=== PATIENT | female | born 1935 | race Caucasian/White ===

== ENCOUNTER 2017-01-09 21:07 | Observation (INO) | payer MEDICARE, MEDICAID ==
[2017-01-09 21:08] VITALS: BMI 35.6
--- NOTE | 2017-01-09 23:04 | ED PDOC ---
HPI: General Adult Time Seen by Provider: 01/09/17 21:24 Chief Complaint (Nursing): GI Problem Chief Complaint (Provider): GI Problem History Per: Patient Onset/Duration Of Symptoms: Days (x1 day) Current Symptoms Are (Timing): Still Present Additional Complaint(s): 81 y/o female with a past medical history of COPD, diabetes mellitus, and hypertension presents to the emergency department with a complaint of a headache , nausea, vomiting, vertiginous dizziness, shortness of breath chest pressure, palpitations, and abdominal discomfort since early this morning, 01/09/2017. Patient states she begin feeling the symptoms after she came to the hospital for an EEG; once she arrived home she vomited 6 times. Reports taking Tylenol and extra dose of metoprolol (what she takes when she feels her heart facing) without the relief of symptoms. Admits experiencing similiar episodes in the past.Denies diarrhea. Of note, patient does see a neurologist for vertigo episodes. Past Medical History Reviewed: Historical Data, Nursing Documentation, Vital Signs Vital Signs: Last Vital Signs Temp 99 F 01/09/17 22:38 Pulse 60 01/09/17 21:09 Resp 18 01/09/17 21:09 BP 152/108 H 01/09/17 21:09 Pulse Ox 100 01/09/17 23:28 - Medical History PMH: Anxiety, Arthritis, Asthma, Atrial Fibrillation, Bipolar Disorder, CAD, CHF , COPD, CVA, Dementia, Depression, Diabetes, Diverticulitis, Fractures (left hip ), Gastritis, Hiatal Hernia, HTN, Hypercholesterolemia, Hyperlipidemia, Hypothyroidism, Osteoporosis, Peripheral Edema, Chronic Kidney Disease Denies: HIV, Rheumatoid Arthritis - Surgical History Surgical History: Cholecystectomy (documented in history but patient does not acknowledge), - Family History Family History: States: Unknown Family Hx - Immunization History Hx Tetanus Toxoid Vaccination: No Hx Influenza Vaccination: No Hx Pneumococcal Vaccination: No - Home Medications Home Medications: Ambulatory Orders Medication Instructions Recorded Aspirin [Ecotrin] 81 mg PO DAILY #0 tabec 07/07/16 Calcium Carbonate [Caltrate] 1 tab PO DAILY #0 tab 07/07/16 Donepezil [Aricept] 10 mg PO HS #0 tab 07/07/16 Esomeprazole Magnesium [Nexium] 40 mg PO DAILY #0 capsule. 07/07/16 Losartan/Hydrochlorothiazide 1 tab PO DAILY #0 tablet 07/07/16 [Losartan-Hctz 50-12.5 mg Tab] Metoprolol Succinate [Toprol XL] 25 mg PO DAILY #0 tab 07/07/16 Rivastigmine 9.5 mg/24 hr [Exelon 1 patch TOP DAILY #0 patch 07/07/16 9.5 mg/24 hr Patch] SITagliptin [Januvia] 50 mg PO DAILY #0 tab 07/07/16 Acetaminophen with Codeine 2 tab PO Q6 PRN 10/18/16 [Tylenol with Codeine #3 Tablet] Atorvastatin [Lipitor] 10 mg PO DAILY 10/18/16 Docusate [Colace] 200 mg PO HS 10/18/16 Ergocalciferol (Vitamin D2) 50,000 unit PO QWK 10/18/16 [Vitamin D2] Escitalopram [Lexapro] 10 mg PO DAILY 10/18/16 Fluticasone/Salmeterol 500/50 1 puff INH BID 10/18/16 [Advair Diskus 500/50] Gabapentin [Neurontin] 100 mg PO TID 10/18/16 Leflunomide 20 mg PO DAILY 10/18/16 Lipase/Protease/Amylase [Zenpep Dr 2 cap PO BID 10/18/16 20,000 Units Capsule] Meclizine [Meclizine*] 25 mg PO TID PRN 10/18/16 Metoclopramide [Reglan] 10 mg PO BID 10/18/16 Mv,Min10/Folic Acid/D3/Ala/Lut 1 tab PO DAILY 10/18/16 [Strovite One Caplet] Neomycin/Polymyxin B/Dexametha 1 appl OD DAILY 10/18/16 [Maxitrol Eye Ointment] Olopatadine HCl [Pazeo] 1 drop OU DAILY 10/18/16 Ondansetron HCl [Zofran] 8 mg PO Q8 PRN 10/18/16 Sildenafil [Revatio] 20 mg PO DAILY 10/18/16 Tolterodine [Detrol LA] 4 mg PO DAILY 10/18/16 Ubidecarenone [Coenzyme Q-10] 200 mg PO TID 10/18/16 traMADol [Ultram] 50 mg PO QID PRN 10/18/16 Albuterol/Ipratropium [Duoneb 3 3 ml INH RQ6 PRN #0 neb 10/20/16 mg/0.5 mg (3 ml) UD] Atorvastatin [Lipitor] 10 mg PO HS tab 10/20/16 Docusate [Colace] 200 mg PO HS cap 10/20/16 Levothyroxine [Synthroid] 50 mcg PO DAILY@0630 tab 10/20/16 - Allergies Allergies/Adverse Reactions: Allergies Allergy/AdvReac Type Severity Reaction Status Date / Time No Known Allergies Allergy Verified 07/04/16 09:29 Review of Systems Cardiovascular: Positive for: Palpitations, Other (Chest pressure) Respiratory: Positive for: Shortness of Breath Gastrointestinal: Positive for: Nausea, Vomiting, Abdominal Pain (discomfort). Negative for: Diarrhea Neurological: Positive for: Headache, Dizziness (Vertiginous dizziness) Physical Exam - Reviewed Nursing Documentation Reviewed: Yes Vital Signs Reviewed: Yes - Physical Exam Appears: Positive for: Non-toxic, In Acute Distress (mild gastrointestinal distress) Head Exam: Positive for: ATRAUMATIC, NORMOCEPHALIC Skin: Positive for: Normal Color, Warm, Dry Eye Exam: Positive for: EOMI (Of the left eye and reactive to light), Other ( Right eye prosthesis). Negative for: Normal appearance Cardiovascular/Chest: Positive for: Other (Irregular rate and rhythm with normal rate. ). Negative for: Murmur Respiratory: Positive for: Rales (Rales at the bases of b/l lung giordano ). Negative for: Accessory Muscle Use, Respiratory Distress Gastrointestinal/Abdominal: Positive for: Normal Exam, Soft, Other (protuberant obese). Negative for: Tenderness, Mass, Distended Extremity: Positive for: Other (Trace b/l lower left edema ). Negative for: Normal ROM - Laboratory Results Result Diagrams: 01/09/17 23:26 01/09/17 23:26 - ECG O2 Sat by Pulse Oximetry: 100 (RA) Pulse Ox Interpretation: Normal Medical Decision Making Medical Decision Making: Time: 21:24 Initial impression: intractable vomiting Initial plan: --Venous Blood Gas Shock --Head w/o contrast CT --Electrocardiogram Stat --EKG-ED (EDNURTX) Stat --Chest portable (RAD) --Antivert 25 mg --Zofran INJ 8 mg IV --Radio Repairer CONT --IV Insertion --Accucheck Time: 22:31 --COMP Metabolic panel --Lipase Stat --Magnesium Stat --Phosphorous Stat --Troponin I Stat --ED urine Dipstick (POC) --CBC w/ differential --Partial thromboplastin Time (COAG) --Prothrombin Time (COAG) --Revaluation Scribe Attestation: Documented by Erika Leija, acting as a scribe for Vilma Sampson MD. Provider Scribe Attestation: All medical record entries made by the Scribe were at my direction and personally dictated by me. I have reviewed the chart and agree that the record accurately reflects my personal performance of the history, physical exam, medical decision making, and the department course for this patient. I have also personally directed, reviewed, and agree with the discharge instructions and disposition. Disposition - Clinical Impression Clinical Impression: Intractable vomiting - Disposition Disposition: Transfer of Care Disposition Time: 00:00 Condition: STABLE Patient Signed Over To: Ricardo Reynolds
[2017-01-09 23:24] LABS: VENOUS BLOOD GAS BASE EXCESS 8.4 mmol/L (0.0-2.0); VENOUS BLOOD GAS MODE ROOM AIR; VENOUS BLOOD GAS PCO2 55 mmHg (40-60); VENOUS BLOOD PH 7.41 (7.32-7.43)
[2017-01-09 23:37] LABS: BASO # 0.1 K/uL (0.0-0.2); BASO % 1.5 % (0.0-2.0); EOS % 0.1 % (0.0-4.0); HEMATOCRIT 43.2 % (34.0-47.0); LYMPH # 1.4 K/uL (1.0-4.3); LYMPH % 30.5 % (20.0-40.0); MEAN CELL VOLUME 88.5 fl (81.0-99.0); MEAN CORPUSCULAR HEMOGLOBIN 28.5 pg (27.0-31.0); MEAN CORPUSCULAR HGB CONC 32.2 g/dL (33.0-37.0); MEAN PLATELET VOLUME 9.4 fl (7.2-11.7); MONO # 0.3 K/uL (0.0-0.8); MONO % 6.7 % (0.0-10.0); NEUT # 2.7 K/uL (1.8-7.0); NEUT % 61.2 % (50.0-75.0); NRBC % 0.1 % (0.0-0.0); WHITE BLOOD COUNT 4.5 K/uL (4.8-10.8)
[2017-01-09 23:54] LABS: PARTIAL THROMBOPLASTIN TIME 28.7 SECONDS (23.3-32.5)
[2017-01-10 00:02] LABS: ALB/GLOB RATIO 1.6 (1.0-2.1); ALKALINE PHOSPHATASE 141 U/L (38-126); ALT/SGPT 45 U/L (9-52); AST/SGOT 51 U/L (14-36); BILIRUBIN,TOTAL 0.5 mg/dl (0.2-1.3); BLOOD UREA NITROGEN 19 mg/dl (7-17); CALCIUM 9.8 mg/dL (8.4-10.2); CARBON DIOXIDE 31 mmol/L (22-30); CHLORIDE 94 mmol/L (98-107); GFR AFRICAN-AMERICAN > 60; GLUCOSE,RANDOM 132 mg/dL (65-105); LIPASE 126 U/L (23-300); MAGNESIUM 1.8 MG/DL (1.6-2.3); POTASSIUM 3.6 MMOL/L (3.6-5.0); SODIUM 135 mmol/l (132-148); TOTAL PROTEIN 7.7 G/DL (6.3-8.2)
--- NOTE | 2017-01-10 00:37 | CT ---
EXAM: CT Head Without Intravenous Contrast CLINICAL HISTORY: 81 years old, female; Pain; Headache; Additional info: Headache vomiting TECHNIQUE: Axial computed tomography images of the head/brain without intravenous contrast. This CT exam was performed using one or more of the following dose reduction techniques: automated exposure control, adjustment of the mA and/or kV according to patient size, and/or use of iterative reconstruction technique. Coronal and sagittal reformatted images were created and reviewed. COMPARISON: CT - HEAD W/O CONTRAST 07/04/2016 10:49:59 AM FINDINGS: Brain: Mild atrophy. No intracranial hemorrhage. No mass. Few scattered foci of decreased attenuation within periventricular/subcortical white matter. Chronic lacunar infarct within RIGHT basal ganglia. No definite edema. Ventricles: No hydrocephalus. Bones/joints: No acute fracture. Soft tissues: Unremarkable. Vasculature: Mild atherosclerotic disease of intracranial arteries. Sinuses: Small LEFT maxillary retention cyst. Mastoid air cells: No mastoid effusion. Orbits: RIGHT phthisis bulbi with prosthesis. IMPRESSION: 1. Nonspecific white matter changes. Acute infarction may be CT occult within first 24 hours. If a focal deficit persists, consider followup CT or MRI for further evaluation. 2. Incidental/non-acute findings are described above.
--- NOTE | 2017-01-10 02:02 | ED PDOC ---
- Laboratory Results Result Diagrams: 01/09/17 23:26 01/09/17 23:26 - ECG O2 Sat by Pulse Oximetry: 100 (RA) Pulse Ox Interpretation: Normal Medical Decision Making Medical Decision Making: Patient signed out to provider from Dr. Vilma Sampson at [address] Head Without Intravenous Contrast IMPRESSION: Nonspecific white matter changes. Acute infarction may be CT occult within first 24 hours. If a focal deficit persists, consider followup CT or MRI for further evaluation. Incidental/non-acute findings are described above. Patient reports persistent nausea. Given age and multiple risk factors the patient will be placed on observation status Dx: Chest pain and Intractable vomiting. Scribe Attestation Documented by Aspen Plata acting as a scribe for Ricardo Reynolds MD Provider Attestation: All medical record entries made by the Scribe were at my direction and personally dictated by me. I have reviewed the chart and agree that the record accurately reflects my personal performance of the history, physical exam, medical decision making, and the department course for this patient. I have also personally directed, reviewed, and agree with the discharge instructions and disposition. Disposition Discussed With : Marei Cross Doctor Will See Patient In The: ED Counseled Patient/Family Regarding: Studies Performed, Diagnosis - Clinical Impression Clinical Impression: Intractable vomiting, Chest pain - POA Present On Arrival: None - Disposition Disposition: Hospitalized as Observation Patient Disposition Time: 01:00 Condition: STABLE
[2017-01-10] MEDS ORDERED: Sodium Chloride 0.9% 1,000 ML IV STA (02:55)
[2017-01-10] MEDS: Insulin Regular 100 units/ml SC SCH ×4 (06:30→21:42)
[2017-01-10] MEDS: Levothyroxine 50 MCG TAB PO SCH (06:47)
[2017-01-10] MEDS ORDERED: Patient's Own Med (Mv,Min10/Folic Acid/D3/Ala/Lut [Strovite One Caplet] 1 TAB) PO SCH (09:00)
[2017-01-10] MEDS ORDERED: LEFLUNOMIDE 20 MG PO SCH (09:00)
[2017-01-10] MEDS ORDERED: TOLTERODINE 4 MG PO SCH (09:00)
[2017-01-10] MEDS ORDERED: Ergocalciferol 50,000 Intl Units Cap PO SCH (09:00)
[2017-01-10] MEDS ORDERED: Metoprolol Succinate 25 mg XL Tab PO SCH (09:00)
[2017-01-10] MEDS ORDERED: AMYLASE PO SCH (09:00)
[2017-01-10] MEDS ORDERED: OLOPATADINE HCL OU SCH (09:00)
[2017-01-10] MEDS: Enoxaparin 40 mg Syringe SC SCH ×2 (09:00)
[2017-01-10] MEDS ORDERED: Patient's Own Med (Calcium Carbonate [Caltrate] 1 TAB) PO SCH (09:00)
[2017-01-10] MEDS ORDERED: LIPASE PO SCH (09:00)
[2017-01-10] MEDS: Multivitamin With Minerals Tab PO SCH ×2 (09:00→09:23)
[2017-01-10] MEDS ORDERED: Olopatadine 0.1% Opht SOLN OU SCH (09:00)
[2017-01-10] MEDS ORDERED: PROTEASE PO SCH (09:00)
[2017-01-10] MEDS: Fluticasone-Salmeterol 500-50mcg Diskus INH SCH ×2 (09:13→17:56)
[2017-01-10] MEDS: Pantoprazole 40 mg EC Tab PO SCH (09:23)
--- NOTE | 2017-01-10 10:26 | CP.PCM.HP ---
<Emma Zhao - Last Filed: 01/10/17 10:22> History of Present Illness - History of Present Illness History of Present Illness: 81yo F with PMHx COPD, DM, HTN admitted for intractable vomiting x1 day. c/o chest pain which has resolved. c/o epigastric abd pain. H/A intermittently. N/V improved. PMHx: as above FHx: NC Social Hx: denies smoking, EtOH, drugs Allergies NKDA evaluated with attending Present on Admission - Present on Admission Any Indicators Present on Admission: No Review of Systems - Constitutional Constitutional: absent: Chills, Fever - Cardiovascular Cardiovascular: Chest Pain - Respiratory Respiratory: absent: Dyspnea - Gastrointestinal Gastrointestinal: Abdominal Pain, Nausea, Vomiting - Genitourinary Genitourinary: absent: Dysuria, Hematuria - Musculoskeletal Musculoskeletal: absent: Back Pain - Neurological Neurological: Headaches Past Patient History - Past Medical History & Family History Past Medical History?: Yes - Past Social History Smoking Status: Never Smoked - CARDIAC Hx Cardiac Disorders: Yes - PULMONARY Hx Respiratory Disorders: Yes - NEUROLOGICAL Hx Neurological Disorder: Yes - HEENT Hx HEENT Problems: Yes - RENAL Hx Chronic Kidney Disease: Yes - ENDOCRINE/METABOLIC Hx Endocrine Disorders: Yes - HEMATOLOGICAL/ONCOLOGICAL Hx Blood Disorders: No - INTEGUMENTARY Hx Dermatological Problems: No - MUSCULOSKELETAL/RHEUMATOLOGICAL Hx Musculoskeletal Disorders: Yes - GASTROINTESTINAL Hx Diverticulitis: Yes Hx Gastritis: Yes - GENITOURINARY/GYNECOLOGICAL Hx Genitourinary Disorders: Yes - PSYCHIATRIC Hx Psychophysiologic Disorder: Yes - SURGICAL HISTORY Hx Cholecystectomy: Yes (documented in history but patient does not acknowledge) - ANESTHESIA Hx Anesthesia: Yes Hx Anesthesia Reactions: No Hx Malignant Hyperthermia: No Meds Allergies/Adverse Reactions: Allergies Allergy/AdvReac Type Severity Reaction Status Date / Time No Known Allergies Allergy Verified 07/04/16 09:29 Physical Exam - Constitutional Appears: Non-toxic, No Acute Distress - Head Exam Head Exam: ATRAUMATIC, NORMAL INSPECTION - Eye Exam Eye Exam: Normal appearance - ENT Exam ENT Exam: Mucous Membranes Moist - Neck Exam Neck exam: Positive for: Normal Inspection - Respiratory Exam Respiratory Exam: Clear to Auscultation Bilateral - Cardiovascular Exam Cardiovascular Exam: Irregular Rhythm - GI/Abdominal Exam GI & Abdominal Exam: Soft, Tenderness - Extremities Exam Extremities exam: Positive for: normal inspection - Back Exam Back exam: NORMAL INSPECTION - Neurological Exam Neurological exam: Alert, Oriented x3 - Skin Skin Exam: Dry, Warm Results - Vital Signs Recent Vital Signs: Last Vital Signs Temp 98.4 F 01/10/17 08:12 Pulse 54 L 01/10/17 09:24 Resp 20 01/10/17 08:12 BP 118/75 01/10/17 09:24 Pulse Ox 100 01/10/17 08:12 - Labs Result Diagrams: 01/09/17 23:26 01/09/17 23:26 Labs: Laboratory Results - last 24 hr 01/10/17 01/10/17 05:07 05:55 POC Glucose (mg/dL) 107 Troponin I 0.0210 Assessment & Plan (1) Chest pain Status: Acute (2) Intractable vomiting Status: Acute (3) Abdominal pain Status: Acute (4) COPD (chronic obstructive pulmonary disease) with acute bronchitis Status: Acute (5) Arthritis Status: Chronic (6) DM2 (diabetes mellitus, type 2) Status: Chronic (7) HTN (hypertension) Status: Chronic (8) Hypothyroid Status: Chronic (9) DVT prophylaxis Status: Acute - Assessment and Plan (Free Text) Assessment: -afebrile, no leukocytosis -CT head: nonspecific white matter changes -c/w home meds -c/s cardio -c/s GI -c/s neuro -trend troponin -meclinzine -zofran -protonix -MIVF -tele monitor <Dirk Guevara - Last Filed: 01/13/17 17:50> Results - Vital Signs Recent Vital Signs: Last Vital Signs Temp 97.4 F L 01/11/17 15:41 Pulse 58 L 01/11/17 15:41 Resp 20 01/11/17 15:41 BP 144/88 01/11/17 15:41 Pulse Ox 98 01/11/17 15:41 - Labs Result Diagrams: 01/11/17 06:10 01/11/17 06:10 Assessment & Plan - Assessment and Plan (Free Text) Assessment: Patient seen and examined with residents in rounds. Case, condition, investigative work up and plan discussed in detail. Agree with residents progress note. Plan: As ordered. (Dirk Guevara MD)
[2017-01-10] MEDS: Amylase/Lipase/Protease 5,000 U ECC PO SCH ×2 (12:00→18:00)
--- NOTE | 2017-01-10 12:36 | CP.PCM.CON ---
History of Present Illness - History of Present Illness History of Present Illness: Mrs. Clinton is a 81-year-old woman with a past medical history of COPD, DM, HTN , lymphoma and arthritis, who was admitted after suffering from several episodes of vomiting, chest pain, shortness of breath, palpitations and headaches. She states that the headache is worse when she vomits and she has not had an appetite. She associated the headache with not eating as well. Today, she said that the headache has improved and she denied having episodes of vomiting. She continued to complain of shortness of breath, nausea and complained of tachycardia and palpitations. She denies having focal weakness, sensory changes or visual changes. 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 Review of Systems - Review of Systems All systems: reviewed and no additional remarkable complaints except Past Patient History - Past Medical History & Family History Past Medical History?: Yes - Past Social History Smoking Status: Never Smoked - CARDIAC Hx Cardiac Disorders: Yes - PULMONARY Hx Respiratory Disorders: Yes - NEUROLOGICAL Hx Neurological Disorder: Yes - HEENT Hx HEENT Problems: Yes - RENAL Hx Chronic Kidney Disease: Yes - ENDOCRINE/METABOLIC Hx Endocrine Disorders: Yes - HEMATOLOGICAL/ONCOLOGICAL Hx Blood Disorders: No - INTEGUMENTARY Hx Dermatological Problems: No - MUSCULOSKELETAL/RHEUMATOLOGICAL Hx Musculoskeletal Disorders: Yes - GASTROINTESTINAL Hx Diverticulitis: Yes Hx Gastritis: Yes - GENITOURINARY/GYNECOLOGICAL Hx Genitourinary Disorders: Yes - PSYCHIATRIC Hx Psychophysiologic Disorder: Yes - SURGICAL HISTORY Hx Cholecystectomy: Yes (documented in history but patient does not acknowledge) - ANESTHESIA Hx Anesthesia: Yes Hx Anesthesia Reactions: No Hx Malignant Hyperthermia: No Meds Allergies/Adverse Reactions: Allergies Allergy/AdvReac Type Severity Reaction Status Date / Time No Known Allergies Allergy Verified 07/04/16 09:29 - Medications Medications: Current Medications Amylase (Pancrease [id number] U) 10,000 u PO BIDWM [facility] Aspirin (Ecotrin) 81 mg PO DAILY [facility] Last Admin: 01/10/17 09:22 Dose: 81 mg Atorvastatin Calcium (Lipitor) 10 mg PO HS [facility] Calcium Carbonate (Oscal) 500 mg PO DAILY [facility] Last Admin: 01/10/17 09:22 Dose: 500 mg Docusate Sodium (Colace) 200 mg PO HS [facility] Enoxaparin Sodium (Lovenox) 40 mg SC DAILY [facility] PRN Reason: Protocol Ergocalciferol (Drisdol 50,000 Intl Units Cap) 1 cap PO QWK [facility] Escitalopram Oxalate (Lexapro) 10 mg PO DAILY [facility] Last Admin: 01/10/17 09:25 Dose: 10 mg Gabapentin (Neurontin) 100 mg PO TID [facility] Last Admin: 01/10/17 09:22 Dose: 100 mg Home Med (Leflunomide [Leflunomide]) 20 mg PO DAILY [facility] Home Med (Lipase/Protease/Amylase [Zenpep Dr 20,000 Units Capsule]) 2 cap PO BID [facility] Sodium Chloride (Sodium Chloride 0.9%) 1,000 mls @ 80 mls/hr IV .[id number] STA Stop: 01/10/17 15:24 Last Admin: 01/10/17 04:38 Dose: 80 mls/hr Insulin Human Regular (Humulin R) 0 units SC ACHS [facility] PRN Reason: Protocol Last Admin: 01/10/17 06:30 Dose: Not Given Levothyroxine Sodium (Synthroid) 50 mcg PO DAILY@0630 [facility] Last Admin: 01/10/17 06:47 Dose: Not Given Meclizine HCl (Antivert) 25 mg PO TID PRN PRN Reason: Dizziness Metoclopramide HCl (Reglan) 10 mg PO BID [facility] Multivitamins/Minerals (Therapeutic-M Tab) 1 tab PO DAILY [facility] Last Admin: 01/10/17 09:23 Dose: 1 tab Olopatadine HCl (Patanol 0.1% Opht Soln) 1 drop OU DAILY [facility] Ondansetron HCl (Zofran Inj) 4 mg IV Q6 PRN PRN Reason: Nausea/Vomiting Pantoprazole Sodium (Protonix Ec Tab) 40 mg PO DAILY [facility] Last Admin: 01/10/17 09:23 Dose: 40 mg Rivastigmine (Exelon 9.5 Mg/24 Hr Patch) 1 patch TD DAILY [facility] Last Admin: 01/10/17 09:23 Dose: 1 patch Fluticasone/Salmeterol (Advair Diskus 500/50) 1 puff INH BID [facility] Last Admin: 01/10/17 09:13 Dose: 1 puff Sitagliptin Phosphate (Januvia) 50 mg PO DAILY [facility] Last Admin: 01/10/17 09:23 Dose: 50 mg Tolterodine Tartrate (Detrol) 4 mg PO DAILY [facility] Last Admin: 01/10/17 09:22 Dose: 4 mg Physical Exam - Constitutional Appears: Chronically Ill - Head Exam Head Exam: ATRAUMATIC, NORMAL INSPECTION, NORMOCEPHALIC - Eye Exam Eye Exam: EOMI, Normal appearance, PERRL Additional comments: Right eyelid weakness and facial droop - ENT Exam ENT Exam: Mucous Membranes Moist, Normal Exam - Neck Exam Neck exam: Positive for: Normal Inspection - Respiratory Exam Respiratory Exam: Prolonged Expiratory Phase, Wheezes, Stridor - Cardiovascular Exam Cardiovascular Exam: REGULAR RHYTHM, +S1, +S2 - GI/Abdominal Exam GI & Abdominal Exam: Normal Bowel Sounds, Soft. absent: Tenderness - Rectal Exam Rectal Exam: Deferred - Neurological Exam Neurological exam: Alert, CN II-XII Intact, Normal Gait, Oriented x3, Reflexes Normal - Expanded Neurological Exam Expanded Patient oriented to: person, place, time Cranial nerves: EOM's Intact: Normal Cerebellar Function: Finger to Nose: Normal Upper motor neuron: Babinski Sign: Normal Sensory exam: Lower Extremity 2 Point Discrimination: Normal, Lower Extremity Light Touch: Normal, Lower Extremity Pin Prick: Normal, Upper Extremity 2 Point Discrimination: Normal, Upper Extremity Light Touch: Normal, Upper Extremity Pin Prick: Normal Neuro motor strength exam: Left Upper Extremity: 4, Right Upper Extremity: 4, Left Lower Extremity: 4, Right Lower Extremity: 4 DTR: Achilles Tendon Left: 2+, Achilles Tendon Right: 2+, Bicep Left: 2+, Bicep Right: 2+, Brachioradialis Left: 2+, Brachioradialis Right: 2+, Patellar Left: 2 +, Patellar Right: 2+, Tricep Left: 2+, Tricep Right: 2+ - Psychiatric Exam Psychiatric exam: Normal Affect, Normal Mood - Skin Skin Exam: Dry, Intact, Normal Color, Warm Results - Vital Signs Recent Vital Signs: Last Vital Signs Temp 98.4 F 01/10/17 08:12 Pulse 54 L 01/10/17 09:24 Resp 20 01/10/17 08:12 BP 118/75 01/10/17 09:24 Pulse Ox 100 01/10/17 08:12 - Labs Result Diagrams: 01/09/17 23:26 01/09/17 23:26 Labs: Laboratory Results - last 24 hr 01/10/17 01/10/17 01/10/17 05:07 05:55 11:06 POC Glucose (mg/dL) 107 93 Troponin I 0.0210 - Imaging and Cardiology CT scan - head Status: Image reviewed by me, Report reviewed by me (No acute findings on CT head without contrast.) Assessment & Plan (1) Headache Assessment and Plan: The headache is likely related to hypoxia, anorexia, vomiting, and underlying co -morbid medical conditions. Today, the headache is not as severe. If the headache becomes worse than a 5/10, we may consider treating with NSAID, tylenol , or magnesium sulfate 2 grams IV. Decadron and depakote are other options, but I recommend avoiding opiates to prevent respiratory suppression and lethargy. Thank you very much for this consultation. Status: Chronic Priority: Medium
[2017-01-10 15:44] LABS: THYROID STIMULATING HORMONE 0.39 mIU/ML (0.46-4.68)
[2017-01-10] MEDS: POLYETHYLENE GLYCOL 3350 17 GM/Dose PACKET PO SCH (17:58)
--- NOTE | 2017-01-10 21:11 | CP.PCM.CON ---
History of Present Illness - History of Present Illness History of Present Illness: GI consult requested by Dr Guevara- This is a 81 yr old obese F with PMH asthma, Pulm HTN. A fib, lymphoma in remission, HTN, uncontrolled DM, with multiple admissions for abdominal pain with most recent 09/2016 now presented with nausea and vomiting with associated abdominal pain. She denies any fever, chills, sick contacts, under-prepared food, or diarrhea. She has asthma for which she takes nebulizers and home oxygen. EGD 02/2016- small hiatal hernia, mild chronic gastritis. H pylori negative. Celiac biopsies negative. Colonoscopy was 3 yrs ago, no abnormalities at [place] as per patient. Today she had solid food of chicken and carrots which she was able to tolerate. She states her abdominal pain is better now. She had last BM 3 days ago and is on reglan at home for gastroparesis. She was recently discontinued on anti hyperglycemics by her PMD as she had low blood sugar. She states she has had hard time conrolling blood sugar. She does not see an durable medical equipment technician. Review of Systems - Review of Systems Review of Systems: 12 point ROS unremarkable except that documented in HPI Past Patient History - Past Medical History & Family History Past Medical History?: Yes - Past Social History Smoking Status: Never Smoked - CARDIAC Hx Cardiac Disorders: Yes - PULMONARY Hx Respiratory Disorders: Yes - NEUROLOGICAL Hx Neurological Disorder: Yes - HEENT Hx HEENT Problems: Yes - RENAL Hx Chronic Kidney Disease: Yes - ENDOCRINE/METABOLIC Hx Endocrine Disorders: Yes - HEMATOLOGICAL/ONCOLOGICAL Hx Blood Disorders: No - INTEGUMENTARY Hx Dermatological Problems: No - MUSCULOSKELETAL/RHEUMATOLOGICAL Hx Musculoskeletal Disorders: Yes - GASTROINTESTINAL Hx Diverticulitis: Yes Hx Gastritis: Yes - GENITOURINARY/GYNECOLOGICAL Hx Genitourinary Disorders: Yes - PSYCHIATRIC Hx Psychophysiologic Disorder: Yes - SURGICAL HISTORY Hx Cholecystectomy: Yes (documented in history but patient does not acknowledge) - ANESTHESIA Hx Anesthesia: Yes Hx Anesthesia Reactions: No Hx Malignant Hyperthermia: No Meds Allergies/Adverse Reactions: Allergies Allergy/AdvReac Type Severity Reaction Status Date / Time No Known Allergies Allergy Verified 07/04/16 09:29 - Medications Medications: Current Medications Acetaminophen (Tylenol 325mg Tab) 650 mg PO Q6 PRN PRN Reason: Headache Last Admin: 01/10/17 19:24 Dose: 650 mg Amylase (Pancrease 41725 U-5000 U-16211 U) 10,000 u PO BIDWM [facility] Last Admin: 01/10/17 18:00 Dose: 10,000 u Aspirin (Ecotrin) 81 mg PO DAILY [facility] Last Admin: 01/10/17 09:00 Dose: Not Given Atorvastatin Calcium (Lipitor) 10 mg PO HS [facility] Calcium Carbonate (Oscal) 500 mg PO DAILY [facility] Last Admin: 01/10/17 09:00 Dose: Not Given Docusate Sodium (Colace) 200 mg PO HS [facility] Enoxaparin Sodium (Lovenox) 40 mg SC DAILY [facility] PRN Reason: Protocol Last Admin: 01/10/17 09:00 Dose: Not Given Ergocalciferol (Drisdol 50,000 Intl Units Cap) 1 cap PO QWK [facility] Escitalopram Oxalate (Lexapro) 10 mg PO DAILY [facility] Last Admin: 01/10/17 09:00 Dose: Not Given Gabapentin (Neurontin) 100 mg PO TID [facility] Last Admin: 01/10/17 17:00 Dose: Not Given Home Med (Leflunomide [Leflunomide]) 20 mg PO DAILY [facility] Insulin Human Regular (Humulin R) 0 units SC [facility] PRN Reason: Protocol Last Admin: 01/10/17 17:00 Dose: Not Given Levothyroxine Sodium (Synthroid) 50 mcg PO DAILY@0630 [facility] Last Admin: 01/10/17 06:47 Dose: Not Given Losartan Potassium (Cozaar) 50 mg PO DAILY [facility] Meclizine HCl (Antivert) 25 mg PO TID PRN PRN Reason: Dizziness Metoclopramide HCl (Reglan) 10 mg PO BID [facility] Last Admin: 01/10/17 18:00 Dose: 10 mg Multivitamins/Minerals (Therapeutic-M Tab) 1 tab PO DAILY [facility] Last Admin: 01/10/17 09:00 Dose: Not Given Olopatadine HCl (Patanol 0.1% Opht Soln) 1 drop OU DAILY [facility] Ondansetron HCl (Zofran Inj) 4 mg IV Q6 PRN PRN Reason: Nausea/Vomiting Pantoprazole Sodium (Protonix Ec Tab) 40 mg PO DAILY [facility] Last Admin: 01/10/17 09:23 Dose: 40 mg Polyethylene Glycol (Miralax) 17 gm PO BID [facility] Last Admin: 01/10/17 17:58 Dose: 17 gm Rivastigmine (Exelon 9.5 Mg/24 Hr Patch) 1 patch TD DAILY [facility] Last Admin: 01/10/17 09:23 Dose: 1 patch Fluticasone/Salmeterol (Advair Diskus 500/50) 1 puff INH BID [facility] Last Admin: 01/10/17 17:56 Dose: 1 puff Sitagliptin Phosphate (Januvia) 50 mg PO DAILY [facility] Last Admin: 01/10/17 09:00 Dose: Not Given Sucralfate (Carafate Tab) 1 gm PO BID [facility] Last Admin: 01/10/17 17:56 Dose: 1 gm Tolterodine Tartrate (Detrol) 4 mg PO DAILY [facility] Last Admin: 01/10/17 09:00 Dose: Not Given Physical Exam - Constitutional Appears: Well - Head Exam Head Exam: ATRAUMATIC, NORMAL INSPECTION, NORMOCEPHALIC - Eye Exam Eye Exam: EOMI, Normal appearance, PERRL - ENT Exam ENT Exam: Mucous Membranes Moist, Normal Exam - Respiratory Exam Respiratory Exam: Clear to Auscultation Bilateral, NORMAL BREATHING PATTERN - Cardiovascular Exam Cardiovascular Exam: REGULAR RHYTHM - GI/Abdominal Exam GI & Abdominal Exam: Distended, Normal Bowel Sounds, Soft. absent: Tenderness Additional comments: obese - Extremities Exam Extremities exam: Positive for: normal inspection - Neurological Exam Neurological exam: Alert, CN II-XII Intact, Normal Gait, Oriented x3, Reflexes Normal - Psychiatric Exam Psychiatric exam: Normal Affect, Normal Mood - Skin Skin Exam: Dry, Intact, Normal Color, Warm Results - Vital Signs Recent Vital Signs: Last Vital Signs Temp 97.8 F 01/10/17 20:08 Pulse 65 01/10/17 20:08 Resp 20 01/10/17 20:08 BP 144/82 01/10/17 20:08 Pulse Ox 96 01/10/17 20:08 - Labs Result Diagrams: 01/09/17 23:26 01/09/17 23:26 Labs: Laboratory Results - last 24 hr 01/10/17 01/10/17 01/10/17 05:07 05:55 11:06 POC Glucose (mg/dL) 107 93 Troponin I 0.0210 TSH 3rd Generation 01/10/17 01/10/17 14:30 15:46 POC Glucose (mg/dL) 114 H Troponin I < 0.0120 TSH 3rd Generation 0.39 L Assessment & Plan - Assessment and Plan (Free Text) Assessment: 80 year old female with h/o asthma, Pulm HTN. A fib, lymphoma in remission, HTN , DM, with multiple admissions for abdominal pain, nausea, and vomiting admitted with recurrent symptoms. 1. Abdominal pain 2. Nausea and vomiting 3. Chronic constipation Plan: -supportive care -previous extensive workup unrevealing -advance diet as tolerated -continue pantoprazole 40 mg daily -continue sucralfate 1g bid oral solution (she takes this at home) -start colace 100 TID (she takes this at home) - Start miralax q hs today - continue reglan (takes it at home) -no further diagnostic testing at this time
[2017-01-11] MEDS: Levothyroxine 50 MCG TAB PO SCH (05:55)
[2017-01-11 06:39] LABS: HEMATOCRIT 40.7 % (34.0-47.0); MEAN CELL VOLUME 89.3 fl (81.0-99.0); MEAN CORPUSCULAR HEMOGLOBIN 28.3 pg (27.0-31.0); MEAN CORPUSCULAR HGB CONC 31.7 g/dL (33.0-37.0); RED CELL DISTRIBUTION WIDTH 13.9 % (11.5-14.5); WHITE BLOOD COUNT 4.7 K/uL (4.8-10.8)
[2017-01-11] MEDS: Insulin Regular 100 units/ml SC SCH ×2 (06:56→13:08)
[2017-01-11 07:07] LABS: ALB/GLOB RATIO 1.5 (1.0-2.1); ALKALINE PHOSPHATASE 105 U/L (38-126); ALT/SGPT 37 U/L (9-52); AST/SGOT 34 U/L (14-36); BILIRUBIN,TOTAL 0.3 mg/dl (0.2-1.3); BLOOD UREA NITROGEN 18 mg/dl (7-17); CALCIUM 8.9 mg/dL (8.4-10.2); CARBON DIOXIDE 33 mmol/L (22-30); CHLORIDE 98 mmol/L (98-107); GFR AFRICAN-AMERICAN > 60; GLUCOSE,RANDOM 102 mg/dL (65-105); POTASSIUM 3.7 MMOL/L (3.6-5.0); SODIUM 139 mmol/l (132-148); TOTAL PROTEIN 6.1 G/DL (6.3-8.2)
[2017-01-11 08:04] VITALS: RESP 20
--- NOTE | 2017-01-11 08:34 | CON ---
DATE: 01/10/2017 CARDIOLOGY CONSULT REASON FOR CONSULTATION: Sinus bradycardia. HISTORY OF PRESENT ILLNESS: The patient is a 81-year-old [place] female who has an extensive medica l history. 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 She has a his tory of slow heartbeat, and is being followed by her business records manager, Dr. Pancho Street at [place]. S he lately underwent 15 days heart monitor, but she does not know the result yet. The patient also mtz d 2 cardiac catheterizations - the most recent one was last year and required no intervention accordi ng to the patient. The patient is also treated for peptic ulcer disease. She presented because of n ausea, vomiting. The patient denies retrosternal chest pain. The patient complains of occasional di zziness, but no syncope. 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 MEDICATIONS: Advair 1 puff twice a day, meclizine 25 mg t.i.d., Colace 200 mg at bedtime, Ecotrin 81 mg once a day, Januvia 50 mg once a day, Lipitor 40 mg once a day, Neurontin ____00 mg t.i.d., ____ 10,000 units p.o. daily, Synthroid 50 mcg once a day, Toprol XL 25 mg once a day, Zofran 4 mg intrave nously every 6 hours p.r.n. PHYSICAL EXAMINATION: GENERAL: The patient is an elderly female who does not appear to be in any distress. VITAL SIGNS: Blood pressure 118/75, heart rate 54, temperature 98.4, respirations 20. HEENT: Right artificial eye. NECK: No JVD. CHEST: Clear. HEART: S1, S2 regular. EXTREMITIES: Trace leg edema. LABORATORY DATA: Hemoglobin and hematocrit 1____.9 and 43.2, white count and platelet count 4.5 and 166. SMA-7: Sodium 135, ____, chloride 94, CO2 of 31, glucose 132, BUN 19, creatinine 0.6. Two set s of troponins are negative. PT and PTT are within normal limits. EKG revealed sinus bradycardia at a rate of 51, left axis deviation. Echocardiographic study performed in 02/2016 revealed normal left ventricular systolic function, aorti c valve sclerosis, mitral annular calcification. The right ventricular systolic pressure was reporte d to be normal during that echo study. ASSESSMENT: 1. Sinus bradycardia. 2. History of pulmonary hypertension. 3. Nausea and vomiting. The patient has history of peptic ulcer disease. 4. History of lymphoma. RECOMMENDATIONS: Continue current meclizine, aspirin 81 mg once a day, Lipitor 10 mg once a day, sub cutaneous Lovenox 40 mg once a day, Protonix 40 mg p.o. daily, normal saline at 80 mL an hour, Synthr oid at 50 mcg once a day. Discontinue Toprol XL and obtain TSH level. Roger Cortez MD cc: [id number] TT: 01/10/2017 12:34:24 Confirmation # [id number] Dictation # [id number] chava
[2017-01-11] MEDS: Pantoprazole 40 mg EC Tab PO SCH (08:57)
[2017-01-11] MEDS: Amylase/Lipase/Protease 5,000 U ECC PO SCH ×2 (08:58→16:37)
[2017-01-11] MEDS: Fluticasone-Salmeterol 500-50mcg Diskus INH SCH ×2 (08:58→16:40)
[2017-01-11] MEDS: Multivitamin With Minerals Tab PO SCH (08:59)
[2017-01-11] MEDS: POLYETHYLENE GLYCOL 3350 17 GM/Dose PACKET PO SCH ×3 (08:59→16:39)
[2017-01-11] MEDS: Enoxaparin 40 mg Syringe SC SCH (08:59)
--- NOTE | 2017-01-11 11:34 | RAD ---
HISTORY: sob COMPARISON: Comparison chest dated 10/17/2016. FINDINGS: LUNGS: Poor inspiration with low lung volumes, mild crowded bronchovascular markings and mild bibasilar atelectasis. The central pulmonary vasculature is slightly increased which could be due to poor inspiration however the possibility of mild chronic compensated pulmonary edema/CHF not excluded. PLEURA: No significant pleural effusion identified, no pneumothorax apparent. CARDIOVASCULAR: Cardiomegaly. OSSEOUS STRUCTURES: Mild multilevel degenerative spondylosis of the thoracic spine VISUALIZED UPPER ABDOMEN: Normal. OTHER FINDINGS: None. IMPRESSION: Poor inspiration with low lung volumes, mild crowded bronchovascular markings and mild bibasilar atelectasis. The central pulmonary vasculature is slightly increased which could be due to poor inspiration however the possibility of mild chronic compensated pulmonary edema/CHF not excluded.
--- NOTE | 2017-01-11 12:34 | CP.PCM.DIS ---
Provider - Provider Date of Admission: 01/10/17 00:52 Attending physician: Dirk Guevara MD Time Spent in preparation of Discharge (in minutes): 20 Diagnosis - Discharge Diagnosis (1) Chest pain Status: Acute (2) Intractable vomiting Status: Acute (3) Abdominal pain Status: Acute (4) COPD (chronic obstructive pulmonary disease) with acute bronchitis Status: Acute (5) Arthritis Status: Chronic (6) DM2 (diabetes mellitus, type 2) Status: Chronic (7) HTN (hypertension) Status: Chronic (8) Hypothyroid Status: Chronic (9) DVT prophylaxis Status: Acute Hospital Course - Lab Results Lab Results: Most Recent Lab Values WBC 4.7 K/uL (4.8-10.8) L 01/11/17 06:10 RBC 4.55 Mil/uL (3.80-5.20) 01/11/17 06:10 Hgb 12.9 g/dL (12.0-16.0) 01/11/17 06:10 Hct 40.7 % (34.0-47.0) 01/11/17 06:10 MCV 89.3 fl (81.0-99.0) 01/11/17 06:10 MCH 28.3 pg (27.0-31.0) 01/11/17 06:10 MCHC 31.7 g/dL (33.0-37.0) L 01/11/17 06:10 RDW 13.9 % (11.5-14.5) 01/11/17 06:10 Plt Count 166 K/uL (130-400) 01/11/17 06:10 MPV 9.4 fl (7.2-11.7) 01/09/17 23:26 Neut % (Auto) 61.2 % (50.0-75.0) 01/09/17 23:26 Lymph % (Auto) 30.5 % (20.0-40.0) 01/09/17 23:26 Burt % (Auto) 6.7 % (0.0-10.0) 01/09/17 23:26 Eos % (Auto) 0.1 % (0.0-4.0) 01/09/17 23:26 Baso % (Auto) 1.5 % (0.0-2.0) 01/09/17 23:26 Neut # 2.7 K/uL (1.8-7.0) 01/09/17 23: Lymph # 1.4 K/uL (1.0-4.3) 01/09/17 23: Burt # 0.3 K/uL (0.0-0.8) 01/09/17 23: Eos # 0.0 K/uL (0.0-0.7) 01/09/17 23: Baso # 0.1 K/uL (0.0-0.2) 01/09/17 23: PT 10.7 SECONDS (9.6-11.2) 01/09/17 23: INR 1.03 (0.92-1.08) 01/09/17: APTT 28.7 SECONDS (23.3-32.5) 01/09/17 23:26 pO2 39 mm/Hg (30-55) 01/09/17 23:13 VBG pH 7.41 (7.32-7.43) 01/09/17 23:13 VBG pCO2 55 mmHg (40-60) 01/09/17 23:13 VBG HCO3 30.9 mmol/L 01/09/17 23:13 VBG Total CO2 36.6 mmol/L (22-28) H 01/09/17 23:13 VBG O2 Sat (Calc) 76.2 % (40-65) H 01/09/17 23:13 VBG Base Excess 8.4 mmol/L (0.0-2.0) H 01/09/17 23:13 VBG Potassium 3.8 mmol/L (3.6-5.2) 01/09/17 23:13 Sodium 134.0 mmol/L (132-148) 01/09/17 23:13 Chloride 96.0 mmol/L (98-107) L 01/09/17 23:13 Glucose 136 mg/dL (65-105) H 01/09/17 23:13 Lactate 1.1 mmol/L (0.7-2.1) 01/09/17 23:13 FiO2 21.0 % 01/09/17 23:13 Sodium 139 mmol/l (132-148) 01/11/17 06:10 Potassium 3.7 MMOL/L (3.6-5.0) 01/11/17 06:10 Chloride 98 mmol/L (98-107) 01/11/17 06:10 Carbon Dioxide 33 mmol/L (22-30) H 01/11/17 06:10 Anion Gap 12 (10-20) 01/11/17 06:10 BUN 18 mg/dl (7-17) H 01/11/17 06:10 Creatinine 0.8 mg/dL (0.7-1.2) 01/11/17 06:10 Est GFR ( Amer) > 60 01/11/17 06:10 Est GFR (Non-Af Amer) > 60 01/11/17 06:10 POC Glucose (mg/dL) 100 mg/dL (65-110) 01/11/17 11:39 Random Glucose 102 mg/dL (65-105) 01/11/17 06:10 Calcium 8.9 mg/dL (8.4-10.2) 01/11/17 06:10 Phosphorus 3.0 mg/dl (2.5-4.5) 01/09/17 23:26 Magnesium 1.8 MG/DL (1.6-2.3) 01/09/17 23:26 Total Bilirubin 0.3 mg/dl (0.2-1.3) 01/11/17 06:10 AST 34 U/L (14-36) 01/11/17 06:10 ALT 37 U/L (9-52) 01/11/17 06:10 Alkaline Phosphatase 105 U/L (38-126) 01/11/17 06:10 Troponin I < 0.0120 ng/mL (0.00-0.120) 01/10/17 14:30 Total Protein 6.1 G/DL (6.3-8.2) L 01/11/17 06:10 Albumin 3.7 g/dL (3.5-5.0) 01/11/17 06:10 Globulin 2.5 gm/dL (2.2-3.9) 01/11/17 06:10 Albumin/Globulin Ratio 1.5 (1.0-2.1) 01/11/17 06:10 Lipase 126 U/L (23-300) 01/09/17 23:26 TSH 3rd Generation 0.39 mIU/ML (0.46-4.68) L 01/10/17 14:30 Venous Blood Potassium 3.8 mmol/L (3.6-5.2) 01/09/17 23:13 - Hospital Course Hospital Course: 81yo F with PMHx COPD, DM, HTN admitted for intractable vomiting. in addition, pt c/o chest pain, H/A and epigastric pain which resolved at time of d/c. cardio Dr. Parikh c/s and troponin neg. GI Dr. Argueta c/s and reviewed prior GI workup with no acute findings. Neuro Dr. Stein c/s and recommended conservative medical management for H/A given no acute changes on CT head. Discharge Exam - Head Exam Head Exam: ATRAUMATIC, NORMAL INSPECTION, NORMOCEPHALIC - Eye Exam Eye Exam: Normal appearance - ENT Exam ENT Exam: Mucous Membranes Moist - Neck Exam Neck exam: Normal Inspection - Respiratory Exam Respiratory Exam: NORMAL BREATHING PATTERN - Cardiovascular Exam Cardiovascular Exam: REGULAR RHYTHM - GI/Abdominal Exam GI & Abdominal Exam: Normal Bowel Sounds, Soft. absent: Tenderness - Extremities Exam Extremities exam: normal inspection - Back Exam Back exam: NORMAL INSPECTION - Neurological Exam Neurological exam: Alert, Oriented x3 - Skin Skin Exam: Dry, Warm Discharge Plan - Follow Up Plan Condition: STABLE Disposition: HOME/ ROUTINE
--- NOTE | 2017-01-11 13:20 | CP.PCM.PN ---
Subjective - Date & Time of Evaluation Date of Evaluation: 01/11/17 Time of Evaluation: 13:18 - Subjective Subjective: RFV: Abdominal pain S: No acute events. Stable. Comfortable. Tolerating diet. Pain improved Objective - Vital Signs/Intake and Output Vital Signs (last 24 hours): Temp Pulse Resp BP Pulse Ox 97.8 F 69 20 125/86 97 01/11/17 12:32 01/11/17 12:32 01/11/17 12:32 01/11/17 12:32 01/11/17 12:32 - Medications Medications: Current Medications Acetaminophen (Tylenol 325mg Tab) 650 mg PO Q6 PRN PRN Reason: Headache Last Admin: 01/10/17 19:24 Dose: 650 mg Amylase (Pancrease 27165 U-5000 U-84700 U) 10,000 u PO BIDWM [facility] Last Admin: 01/11/17 08:58 Dose: 10,000 u Aspirin (Ecotrin) 81 mg PO DAILY [facility] Last Admin: 01/11/17 09:15 Dose: 81 mg Atorvastatin Calcium (Lipitor) 10 mg PO HS [facility] Last Admin: 01/10/17 21:42 Dose: 10 mg Calcium Carbonate (Oscal) 500 mg PO DAILY [facility] Last Admin: 01/11/17 08:57 Dose: 500 mg Docusate Sodium (Colace) 200 mg PO HS [facility] Last Admin: 01/10/17 21:41 Dose: 200 mg Enoxaparin Sodium (Lovenox) 40 mg SC DAILY [facility] PRN Reason: Protocol Last Admin: 01/11/17 08:59 Dose: 40 mg Ergocalciferol (Drisdol 50,000 Intl Units Cap) 1 cap PO QWK [facility] Last Admin: 01/11/17 09:00 Dose: 1 cap Escitalopram Oxalate (Lexapro) 10 mg PO DAILY [facility] Last Admin: 01/11/17 09:01 Dose: 10 mg Gabapentin (Neurontin) 100 mg PO TID [facility] Last Admin: 01/11/17 13:07 Dose: 100 mg Home Med (Leflunomide [Leflunomide]) 20 mg PO DAILY [facility] Insulin Human Regular (Humulin R) 0 units SC ACHS [facility] PRN Reason: Protocol Last Admin: 01/11/17 13:08 Dose: Not Given Levothyroxine Sodium (Synthroid) 50 mcg PO DAILY@0630 [facility] Last Admin: 01/11/17 05:55 Dose: 50 mcg Losartan Potassium (Cozaar) 50 mg PO DAILY [facility] Last Admin: 01/11/17 08:57 Dose: 50 mg Meclizine HCl (Antivert) 25 mg PO TID PRN PRN Reason: Dizziness Metoclopramide HCl (Reglan) 10 mg PO BID [facility] Last Admin: 01/11/17 09:00 Dose: 10 mg Multivitamins/Minerals (Therapeutic-M Tab) 1 tab PO DAILY [facility] Last Admin: 01/11/17 08:59 Dose: 1 tab Olopatadine HCl (Patanol 0.1% Opht Soln) 1 drop OU DAILY [facility] Last Admin: 01/11/17 08:53 Dose: 1 drop Ondansetron HCl (Zofran Inj) 4 mg IV Q6 PRN PRN Reason: Nausea/Vomiting Pantoprazole Sodium (Protonix Ec Tab) 40 mg PO DAILY [facility] Last Admin: 01/11/17 08:57 Dose: 40 mg Polyethylene Glycol (Miralax) 17 gm PO BID [facility] Last Admin: 01/11/17 10:22 Dose: Not Given Rivastigmine (Exelon 9.5 Mg/24 Hr Patch) 1 patch TD DAILY [facility] Last Admin: 01/11/17 08:59 Dose: 1 patch Fluticasone/Salmeterol (Advair Diskus 500/50) 1 puff INH BID [facility] Last Admin: 01/11/17 08:58 Dose: 1 puff Sitagliptin Phosphate (Januvia) 50 mg PO DAILY [facility] Last Admin: 01/11/17 08:59 Dose: 50 mg Sucralfate (Carafate Tab) 1 gm PO BID [facility] Last Admin: 01/11/17 08:58 Dose: 1 gm Tolterodine Tartrate (Detrol) 4 mg PO DAILY [facility] Last Admin: 01/11/17 09:00 Dose: 4 mg - Labs Labs: 01/11/17 06:10 01/11/17 06:10 PT 10.7 SECONDS (9.6-11.2) 01/09/17 23:26 INR 1.03 (0.92-1.08) 01/09/17 23:26 APTT 28.7 SECONDS (23.3-32.5) 01/09/17 23:26 - Constitutional Appears: No Acute Distress - Head Exam Head Exam: ATRAUMATIC, NORMOCEPHALIC - Eye Exam Eye Exam: Normal appearance - ENT Exam ENT Exam: Mucous Membranes Moist, Normal Oropharynx - Respiratory Exam Respiratory Exam: Clear to Ausculation Bilateral, NORMAL BREATHING PATTERN - Cardiovascular Exam Cardiovascular Exam: +S1, +S2 - GI/Abdominal Exam GI & Abdominal Exam: Soft. absent: Tenderness - Neurological Exam Neurological Exam: Alert - Skin Skin Exam: Dry, Warm Assessment and Plan - Assessment and Plan (Free Text) Assessment: 80 year old female with h/o asthma, Pulm HTN. A fib, lymphoma in remission, HTN , DM, with multiple admissions for abdominal pain, nausea, and vomiting admitted with recurrent symptoms. 1. Abdominal pain 2. Nausea and vomiting 3. Chronic constipation Plan: -supportive care -previous workup unrevealing -diet as tolerated -continue pantoprazole 40 mg daily -continue sucralfate 1g bid oral solution -Continue colace 100 TID -Continue miralax qhs today - continue reglan -ok for discharge today
[2017-01-11 15:42] VITALS: BP 144/88; PULSE 58; TEMP 97.4; O2SAT 98
--- NOTE | 2017-01-13 19:13 | CARD ---
APPROVED REPORT EKG Measurement Heart Anmt64MCRP [place] [id number] <Conclusion> Sinus bradycardia with 1st degree AV block Left axis deviation Abnormal ECG
== END 2017-01-11 19:00 | disposition home or self-care (01) ==
LOC: H.ER 21:07 → H.ERHOLD 01-10 00:52 → H.TEL 01-10 02:52
PROVIDERS: ADMIT Internal Medicine; ATTEND Internal Medicine
DX: R00.1 Bradycardia, unspecified (principal); R07.9 Chest pain, unspecified; R10.13 Epigastric pain; I27.2 Other secondary pulmonary hypertension; J44.9 Chronic obstructive pulmonary disease, unspecified; J20.9 Acute bronchitis, unspecified; J45.909 Unspecified asthma, uncomplicated; I48.91 Unspecified atrial fibrillation; K27.9 Peptic ulcer, site unspecified, unspecified as acute or chronic, without hemorrhage or perforation; I13.0 Hypertensive heart and chronic kidney disease with heart failure and stage 1 through stage 4 chronic kidney disease, or unspecified chronic kidney disease; N18.9 Chronic kidney disease, unspecified; I50.9 Heart failure, unspecified; K59.09 Other constipation; E11.22 Type 2 diabetes mellitus with diabetic chronic kidney disease; M19.90 Unspecified osteoarthritis, unspecified site; M81.0 Age-related osteoporosis without current pathological fracture; E03.9 Hypothyroidism, unspecified; E78.5 Hyperlipidemia, unspecified; E78.00 Pure hypercholesterolemia, unspecified; F03.90 Unspecified dementia, unspecified severity, without behavioral disturbance, psychotic disturbance, mood disturbance, and anxiety; I25.10 Atherosclerotic heart disease of native coronary artery without angina pectoris; F31.9 Bipolar disorder, unspecified; E66.9 Obesity, unspecified; Z85.72 Personal history of non-Hodgkin lymphomas; Z68.41 Body mass index [BMI] 40.0-44.9, adult; Z99.81 Dependence on supplemental oxygen; Z92.21 Personal history of antineoplastic chemotherapy; Z92.3 Personal history of irradiation; Z90.49 Acquired absence of other specified parts of digestive tract; Z97.0 Presence of artificial eye; Z86.73 Personal history of transient ischemic attack (TIA), and cerebral infarction without residual deficits
CPT/HCPCS: 36415; 70450; 71010; 80053; 82803; 82948; 83690; 83735; 84100; 84443; 84484; 85025; 85027; 85610; 85730; 97161; 99282; G0378; G8978; G8979; G8980; J1650; J2405; J7040

== ENCOUNTER 2017-04-20 17:10 | Inpatient (IN) | payer MEDICARE, MEDICAID ==
[2017-04-20 17:10] VITALS: BMI 35.6
[2017-04-20] MEDS ORDERED: Albuterol-Ipratrop 3 mg / 0.5 (3 ml) UD INH STA ×3 (17:38→20:19)
[2017-04-20] MEDS ORDERED: Albuterol-Ipratrop 3 mg / 0.5 (3 ml) UD ONE ×2 (18:04→20:33)
--- NOTE | 2017-04-20 18:31 | ED PDOC ---
HPI: SOB/CHF/COPD Time Seen by Provider: 04/20/17 17:25 Chief Complaint (Nursing): Shortness Of Breath Chief Complaint (Provider): Shortness Of Breath History Per: Patient History/Exam Limitations: no limitations Onset/Duration Of Symptoms: Days (x5) Current Symptoms Are (Timing): Still Present Additional Complaint(s): Eren Polanco is a 81 year old female with a history of COPD that presents to the ED with a chief complaint of generalized weakness, shortness of breath, and productive cough with chest pain that she has been experiencing for the past 5 days. Patient reports that she has been using her nebulizer at home without improvement, and denies any abdominal pain, vomiting, fever, or edema. Past Medical History Reviewed: Historical Data, Nursing Documentation, Vital Signs Vital Signs: Last Vital Signs Temp 98 F 04/20/17 17:13 Pulse 55 L 04/20/17 17:13 Resp 18 04/20/17 18:37 BP 103/56 L 04/20/17 17:13 Pulse Ox 97 04/20/17 18:37 - Medical History PMH: Anxiety, Arthritis, Asthma, Atrial Fibrillation, Bipolar Disorder, CAD, CHF , COPD, CVA, Dementia, Depression, Diabetes, Diverticulitis, Fractures (left hip ), Gastritis, Hiatal Hernia, HTN, Hypercholesterolemia, Hyperlipidemia, Hypothyroidism, Osteoporosis, Peripheral Edema, Chronic Kidney Disease Denies: HIV, Rheumatoid Arthritis - Surgical History Surgical History: Cholecystectomy (documented in history but patient does not acknowledge), - Family History Family History: States: Unknown Family Hx - Social History Current smoker - smoking cessation education provided: No Alcohol: None - Immunization History Hx Tetanus Toxoid Vaccination: No Hx Influenza Vaccination: No Hx Pneumococcal Vaccination: No - Home Medications Home Medications: Ambulatory Orders Medication Instructions Recorded Albuterol HFA [Ventolin HFA 90 1 puff IH Q6H PRN 04/20/17 mcg/actuation (8 g)] Aspirin [Ecotrin] 81 mg PO DAILY 04/20/17 Atorvastatin [Lipitor] 10 mg PO DAILY 04/20/17 Diclofenac Sodium [Voltaren] 1 appl TOP QID PRN 04/20/17 Docusate [Colace] 200 mg PO HS 04/20/17 Ergocalciferol (Vitamin D2) 50,000 unit PO QWK 04/20/17 [Vitamin D2] Esomeprazole Magnesium [Nexium] 40 mg PO DAILY 04/20/17 Fluticasone/Salmeterol [Advair 1 puff IH Q12H 04/20/17 250-50 Diskus] Furosemide [Lasix] 40 mg PO DAILY 04/20/17 HCTZ/Losartan Potassium [Hyzaar 1 tab PO DAILY 04/20/17 12.5 mg-50 mg] Levothyroxine [Synthroid] 100 mcg PO DAILY 04/20/17 Linaclotide [Linzess] 290 mcg PO DAILY PRN 04/20/17 Lipase/Protease/Amylase [Zenpep Dr 2 cap PO BID 04/20/17 20,000 Units Capsule] Magnesium Oxide [Magox 400] 800 mg PO DAILY 04/20/17 Meloxicam [Mobic] 15 mg PO DAILY PRN 04/20/17 Metoclopramide [Reglan] 5 mg PO ACTID 04/20/17 Metoprolol Succinate [Toprol XL] 25 mg PO DAILY 04/20/17 Pozez-1-Gwve Ethyl Esters 1 GM 2 gm PO BID 04/20/17 [Lovaza] Omeprazole [Omeprazole] 20 mg PO HS PRN 04/20/17 Rivastigmine [Exelon 13.3 mg/24 hr 1 patch TD DAILY 04/20/17 Patch] SITagliptin [Januvia] 50 mg PO DAILY 04/20/17 Sildenafil [Revatio] 20 mg PO TID 04/20/17 Spironolactone [Aldactone] 25 mg PO DAILY 04/20/17 Tolterodine Tartrate [Detrol LA] 4 mg PO DAILY 04/20/17 - Allergies Allergies/Adverse Reactions: Allergies Allergy/AdvReac Type Severity Reaction Status Date / Time No Known Allergies Allergy Verified 07/04/16 09:29 Review of Systems Constitutional: Positive for: Weakness Cardiovascular: Positive for: Chest Pain Respiratory: Positive for: Cough (productive), Shortness of Breath Physical Exam - Reviewed Nursing Documentation Reviewed: Yes Vital Signs Reviewed: Yes - Physical Exam Appears: Positive for: Non-toxic, In Acute Distress (mild) Head Exam: Positive for: ATRAUMATIC, NORMOCEPHALIC Skin: Positive for: Normal Color, Warm Eye Exam: Positive for: Normal appearance, Other (Patient has a chronically drooping right eyelid.) Cardiovascular/Chest: Positive for: Regular Rate, Rhythm. Negative for: Murmur Respiratory: Positive for: Wheezing (bilateral wheezing), Respiratory Distress ( mild), Other (Patient is excessively coughing.). Negative for: Normal Breath Sounds Gastrointestinal/Abdominal: Positive for: Normal Exam, Soft. Negative for: Tenderness Neurologic/Psych: Positive for: Alert, Oriented. Negative for: Motor/Sensory Deficits - Laboratory Results Result Diagrams: 04/20/17 18:20 04/20/17 18:20 - ECG O2 Sat by Pulse Oximetry: 97 (RA) Pulse Ox Interpretation: Normal Medical Decision Making Medical Decision Making: Impression: COPD Exacerbation vs. Respiratory Failure Plan: * CMP * CBC * BNP * Troponin * Urinalysis * Chest X-Ray * EKG * Methylprednisolone 125 mg IV * Duoneb 3 ml * Peak Flow Pre/Post Tx * Reevaluation Scribe Attestation: Documented by Kathe Mcgraw, acting as a scribe for Kyler Long III, DO. Provider Scribe Attestation: All medical record entries made by the Scribe were at my direction and personally dictated by me. I have reviewed the chart and agree that the record accurately reflects my personal performance of the history, physical exam, medical decision making, and the department course for this patient. I have also personally directed, reviewed, and agree with the discharge instructions and disposition. Disposition - Clinical Impression Clinical Impression: COPD exacerbation - Patient ED Disposition Is Patient to be Admitted: Transfer of Care Counseled Patient/Family Regarding: Studies Performed, Diagnosis - Disposition Disposition: Transfer of Care Disposition Time: 19:06 Condition: FAIR Forms: [employer] (Czech) Patient Signed Over To: Ricardo Reynolds Handoff Comments: pending labs, poss admission for COPD
[2017-04-20 18:42] LABS: BASO % 0.4 % (0.0-2.0); EOS % 0.7 % (0.0-4.0); HEMATOCRIT 38.9 % (34.0-47.0); LYMPH # 2.4 K/uL (1.0-4.3); LYMPH % 67.4 % (20.0-40.0); MEAN CELL VOLUME 87.4 fl (81.0-99.0); MEAN CORPUSCULAR HEMOGLOBIN 28.9 pg (27.0-31.0); MEAN PLATELET VOLUME 8.9 fl (7.2-11.7); MONO # 0.5 K/uL (0.0-0.8); MONO % 14.2 % (0.0-10.0); NEUT # 0.6 K/uL (1.8-7.0); NEUT % 17.3 % (50.0-75.0); NRBC % 0.5 % (0.0-0.0); WHITE BLOOD COUNT 3.5 K/uL (4.8-10.8)
[2017-04-20 18:45] LABS: ALB/GLOB RATIO 1.5 (1.0-2.1); ALKALINE PHOSPHATASE 101 U/L (38-126); ALT/SGPT 42 U/L (9-52); AST/SGOT 41 U/L (14-36); BILIRUBIN,TOTAL 0.5 mg/dl (0.2-1.3); BLOOD UREA NITROGEN 12 mg/dl (7-17); CARBON DIOXIDE 31 mmol/L (22-30); CHLORIDE 94 mmol/L (98-107); GFR AFRICAN-AMERICAN > 60; GLUCOSE,RANDOM 98 mg/dL (65-105); POTASSIUM 3.9 MMOL/L (3.6-5.0); SODIUM 132 mmol/l (132-148); TOTAL PROTEIN 6.3 G/DL (6.3-8.2)
--- NOTE | 2017-04-20 19:33 | ED PDOC ---
- Laboratory Results Result Diagrams: 04/20/17 18:20 04/20/17 18:20 - ECG O2 Sat by Pulse Oximetry: 97 (RA) Medical Decision Making Medical Decision Makin:00 Patient signed over to me by Dr. Long pending labs, chest x-ray, and reevaluation. 19:25 Labs reviewed, no clinically significant abnormalities. Chest X-Ray shows no acute disease. Spoke to Dr. Guevara, medicine personal development coach, patient will be hospitalized as observation patient for COPD exacerbation. Scribe Attestation: Documented by Kathe Mcgraw, acting as a scribe for Ricardo Reynolds MD. Provider Scribe Attestation: All medical record entries made by the Scribe were at my direction and personally dictated by me. I have reviewed the chart and agree that the record accurately reflects my personal performance of the history, physical exam, medical decision making, and the department course for this patient. I have also personally directed, reviewed, and agree with the discharge instructions and disposition. Disposition Discussed With : Dirk Guevara Counseled Patient/Family Regarding: Studies Performed, Diagnosis - Clinical Impression Clinical Impression: COPD exacerbation - POA Present On Arrival: None - Disposition Disposition: Hospitalized as Observation Patient Disposition Time: 19:25 Condition: FAIR
[2017-04-20] MEDS ORDERED: Promethazine/Cod 6.25mg-10mg/5ml Syr UD PO STA (20:18)
[2017-04-20] MEDS ORDERED: Promethazine/Cod 6.25mg-10mg/5ml Syr UD ONE (20:33)
[2017-04-20] MEDS ORDERED: Ergocalciferol 50,000 Intl Units Cap PO SCH (23:45)
[2017-04-20] MEDS ORDERED: Naproxen 500 MG TAB PO PRN (23:45)
[2017-04-21] MEDS: Albuterol-Ipratrop 3 mg / 0.5 (3 ml) UD INH SCH ×6 (01:05→19:14)
[2017-04-21] MEDS: methylPREDNISolone 40 MG in Sodium Chloride 0.9% 50 ML IV SCH ×5 (04:27→21:53)
[2017-04-21] MEDS ORDERED: Levothyroxine 100 MCG TAB PO SCH (06:30)
[2017-04-21] MEDS: Levothyroxine 100 MCG TAB PO SCH (06:52)
--- NOTE | 2017-04-21 08:23 | CP.PCM.HP ---
<Melinda Boland - Last Filed: 04/21/17 16:40> History of Present Illness - History of Present Illness History of Present Illness: Patient seen and examined with attending. 81 year old female with an extensive PMH that includes COPD, on home O2 that presented with complaint of generalized weakness, shortness of breath, and productive cough with chest pain that she has been experiencing for the past 5 days.She reports that she has been using her nebulizer at home without improvement. Continues to have weakness, chest discomfort and dyspnea. She is sitting upright in bed with O2 via NC. She denies any fevers, chills, nausea, vomiting, abdominal pain, diarrhea. Present on Admission - Present on Admission Any Indicators Present on Admission: No Past Patient History - Past Medical History & Family History Past Medical History?: Yes - Past Social History Smoking Status: Never Smoked - CARDIAC Hx Cardiac Disorders: Yes Hx Atrial Fibrillation: Yes Hx Congestive Heart Failure: Yes Hx Hypercholesterolemia: Yes Hx Hypertension: Yes - PULMONARY Hx Respiratory Disorders: Yes Hx Asthma: Yes Hx Chronic Obstructive Pulmonary Disease (COPD): Yes - NEUROLOGICAL Hx Dementia: Yes - HEENT Hx HEENT Problems: Yes Other/Comment: Right artificial eye - RENAL Hx Chronic Kidney Disease: Yes - ENDOCRINE/METABOLIC Hx Endocrine Disorders: Yes Hx Diabetes Mellitus Type 2: Yes Hx Hypothyroidism: Yes - HEMATOLOGICAL/ONCOLOGICAL Hx Blood Disorders: Yes Hx AIDS: No Hx Human Immunodeficiency Virus (HIV): No - INTEGUMENTARY Hx Dermatological Problems: No - MUSCULOSKELETAL/RHEUMATOLOGICAL Hx Musculoskeletal Disorders: Yes Hx Arthritis: Yes Hx Falls: Yes Other/Comment: uses rollator at home - GASTROINTESTINAL Hx Constipation: Yes Hx Diverticulitis: Yes Hx Gastritis: Yes - GENITOURINARY/GYNECOLOGICAL Hx Genitourinary Disorders: Yes Hx Incontinence: Yes - PSYCHIATRIC Hx Psychophysiologic Disorder: Yes Hx Anxiety: Yes Hx Substance Use: No - SURGICAL HISTORY Hx Surgeries: Yes Hx Cholecystectomy: Yes (documented in history but patient does not acknowledge) Hx Joint Replacement: Yes (left hip sx) Hx Orthopedic Surgery: Yes - ANESTHESIA Hx Anesthesia: Yes Hx Anesthesia Reactions: No Hx Malignant Hyperthermia: No Meds Allergies/Adverse Reactions: Allergies Allergy/AdvReac Type Severity Reaction Status Date / Time No Known Allergies Allergy Verified 07/04/16 09:29 Physical Exam - Constitutional Appears: In Acute Distress (mild respiratory ) Additional comments: morbidly obese - Head Exam Head Exam: NORMAL INSPECTION Additional comments: wearing nc - Respiratory Exam Respiratory Exam: Decreased Breath Sounds (diffusely), Rhonchi (mild diffuse), Wheezes (diffusely), Respiratory Distress (mild, no retractions) - Cardiovascular Exam Cardiovascular Exam: REGULAR RHYTHM, +S1, +S2 - GI/Abdominal Exam GI & Abdominal Exam: Normal Bowel Sounds, Soft. absent: Tenderness - Neurological Exam Neurological exam: Alert, CN II-XII Intact - Psychiatric Exam Psychiatric exam: Normal Affect, Normal Mood - Skin Skin Exam: Dry, Intact Results - Vital Signs Recent Vital Signs: Last Vital Signs Temp 97.7 F 04/21/17 08:11 Pulse 53 L 04/21/17 08:11 Resp 20 04/21/17 08:11 BP 117/63 04/21/17 08:11 Pulse Ox 95 04/21/17 08:11 - Labs Result Diagrams: 04/20/17 18:20 04/20/17 18:20 Assessment & Plan (1) Dyspnea Assessment and Plan: 81 year old female with multiple comorbiddities admitted for acute copd exacerbation. Patient continues to feel short of breath with diffuse wheezing and rhonchi. repeat cxr today. Duonebs q4 solumedrol tapered to 40mg q6 phenergan for cough Status: Acute (2) Hypothyroid Assessment and Plan: synthroid 100mcg Status: Chronic (3) Hypertension Assessment and Plan: controlled Status: Acute (4) DVT prophylaxis Assessment and Plan: lovenox Status: Acute <Guevara,Dirk K - Last Filed: 04/27/17 14:04> Results - Vital Signs Recent Vital Signs: Last Vital Signs Temp 98.2 F 04/25/17 16:45 Pulse 103 H 04/25/17 16:45 Resp 20 04/25/17 16:45 BP 96/57 L 04/25/17 16:45 Pulse Ox 94 L 04/27/17 08:14 - Labs Result Diagrams: 04/25/17 05:00 04/25/17 05:00 Assessment & Plan - Assessment and Plan (Free Text) Assessment: Patient was personally seen and examined by me in rounds with residents. Available labs and diagnostic data reviewed. Case, Patient's condition and management plan Discussed with residents in rounds. Agree with resident's progress note. Plan: As ordered.
[2017-04-21] MEDS: HCTZ/Losartan 12.5/50 Tab PO SCH (08:44)
[2017-04-21] MEDS: Enoxaparin 40 mg Syringe SC SCH (08:45)
[2017-04-21] MEDS: Omega-3-Acid Ethyl Esters 1 GM Cap PO SCH ×3 (08:45→17:35)
[2017-04-21] MEDS: Pantoprazole 40 mg EC Tab PO SCH (08:46)
[2017-04-21] MEDS: Magnesium Oxide 400 mg Tab UD PO SCH (08:46)
[2017-04-21] MEDS: Metoprolol Succinate 25 mg XL Tab PO SCH (08:46)
[2017-04-21] MEDS: guaiFENesin DM 200 mg-20 mg/10 ml UD PO PRN ×2 (08:46→16:27)
[2017-04-21] MEDS ORDERED: LIPASE PO SCH (09:00)
[2017-04-21] MEDS ORDERED: AMYLASE PO SCH (09:00)
[2017-04-21] MEDS ORDERED: PROTEASE PO SCH (09:00)
[2017-04-21] MEDS ORDERED: RIVASTIGMINE TD SCH (09:00)
--- NOTE | 2017-04-21 10:51 | RAD ---
HISTORY: SOB COMPARISON: 01/09/2017 TECHNIQUE: Chest PA and lateral FINDINGS: LUNGS: No active pulmonary disease. PLEURA: No significant pleural effusion identified. No pneumothorax apparent. CARDIOVASCULAR: Normal. OSSEOUS STRUCTURES: No significant abnormalities. VISUALIZED UPPER ABDOMEN: Normal. OTHER FINDINGS: None. IMPRESSION: No active disease.
--- NOTE | 2017-04-21 11:56 | RAD ---
HISTORY: copd/asthma COMPARISON: 04/20/2017 TECHNIQUE: Chest PA and lateral FINDINGS: LUNGS: No active pulmonary disease. PLEURA: No significant pleural effusion identified. No pneumothorax apparent. CARDIOVASCULAR: Normal. OSSEOUS STRUCTURES: No significant abnormalities. VISUALIZED UPPER ABDOMEN: Normal. OTHER FINDINGS: None. IMPRESSION: No active disease.
--- NOTE | 2017-04-21 12:51 | CARD ---
APPROVED REPORT EKG Measurement Heart [id number] <Conclusion> Sinus bradycardia with 1st degree AV block Left anterior fascicular block Abnormal ECG
[2017-04-21] MEDS ORDERED: Glucagon Recombinant 1 mg Inj IM PRN (14:07)
[2017-04-21] MEDS ORDERED: Dextrose 50% SYRINGE Inj (50 ml) IV PRN (14:07)
[2017-04-21] MEDS: Sildenafil 20 MG TAB PO SCH (17:28)
[2017-04-21] MEDS: Insulin Lispro (humaLOG) 100 Units/ml Inj SC SCH ×2 (17:28→21:51)
[2017-04-21] MEDS: Promethazine/Cod 6.25mg-10mg/5ml Syr UD PO PRN (22:03)
[2017-04-22] MEDS: Albuterol-Ipratrop 3 mg / 0.5 (3 ml) UD INH SCH ×6 (00:24→19:09)
[2017-04-22] MEDS: methylPREDNISolone 40 MG in Sodium Chloride 0.9% 50 ML IV SCH ×4 (04:27→21:16)
[2017-04-22] MEDS: Insulin Lispro (humaLOG) 100 Units/ml Inj SC SCH ×4 (08:52→21:14)
[2017-04-22] MEDS: Magnesium Oxide 400 mg Tab UD PO SCH (08:53)
[2017-04-22] MEDS: Omega-3-Acid Ethyl Esters 1 GM Cap PO SCH ×2 (08:53→16:22)
[2017-04-22] MEDS: Sildenafil 20 MG TAB PO SCH ×3 (08:54→16:22)
[2017-04-22] MEDS: Pantoprazole 40 mg EC Tab PO SCH (08:54)
[2017-04-22] MEDS: Metoprolol Succinate 25 mg XL Tab PO SCH (08:54)
[2017-04-22] MEDS: HCTZ/Losartan 12.5/50 Tab PO SCH (08:54)
[2017-04-22] MEDS: Enoxaparin 40 mg Syringe SC SCH (09:02)
[2017-04-22] MEDS: Levothyroxine 100 MCG TAB PO SCH (09:04)
[2017-04-22 09:46] LABS: THYROID STIMULATING HORMONE 0.02 mIU/ML (0.46-4.68)
[2017-04-22] MEDS: guaiFENesin DM 200 mg-20 mg/10 ml UD PO PRN (11:34)
--- NOTE | 2017-04-22 11:51 | PN ---
DATE: 04/22/2017 SUBJECTIVE: The patient is seen and examined. Interim events noted. The patient remains on regular medical floor. She feels better. She slept good. No chest pain. No shortness of breath. PHYSICAL EXAMINATION: GENERAL: The patient is in no acute distress. VITAL SIGNS: Stable. HEART: S1 and S2, normal and regular. LUNGS: Improved bilateral air exchange. No wheezing, no rales, and no rhonchi. Does have prolonged expiration. EXTREMITIES: No edema. No calf swelling. No tenderness. No acute ischemia. ABDOMEN: Soft and nontender. No organomegaly. No fluid. Bowel sounds are present. CENTRAL NERVOUS SYSTEM: Essentially unchanged. DIAGNOSTIC DATA: Available diagnostic data reviewed. IMPRESSION: Overall, the patient's general medical condition is slowly improving. PLAN: As ordered. Dirk Guevara MD
[2017-04-22] MEDS: Promethazine/Cod 6.25mg-10mg/5ml Syr UD PO PRN (21:20)
[2017-04-23] MEDS: Albuterol-Ipratrop 3 mg / 0.5 (3 ml) UD INH SCH ×7 (00:14→23:37)
[2017-04-23] MEDS: methylPREDNISolone 40 MG in Sodium Chloride 0.9% 50 ML IV SCH ×2 (04:44→09:43)
[2017-04-23] MEDS: guaiFENesin DM 200 mg-20 mg/10 ml UD PO PRN ×2 (05:07→17:39)
[2017-04-23 06:45] LABS: RBC URINE 3 /hpf (0-3); URINE BACTERIA OCC (<OCC); URINE BILIRUBIN NEGATIVE (NEGATIVE); URINE BLOOD NEGATIVE (NEGATIVE); URINE COLOR YELLOW (YELLOW); URINE GLUCOSE (UA) NEG (Normal); URINE KETONE NEGATIVE (NEGATIVE); URINE LEUKOCYTE ESTERASE MOD Leu/uL (Negative); URINE PROTEIN NEGATIVE (NEGATIVE); URINE UROBILINOGEN 0.2-1.0 mg/dL (0.2-1.0); WBC URINE 19 /hpf (0-5)
[2017-04-23 08:22] LABS: ALB/GLOB RATIO 1.5 (1.0-2.1); ALKALINE PHOSPHATASE 98 U/L (38-126); ALT/SGPT 45 U/L (9-52); AST/SGOT 27 U/L (14-36); BILIRUBIN,TOTAL 0.3 mg/dl (0.2-1.3); BLOOD UREA NITROGEN 33 mg/dl (7-17); CALCIUM 9.3 mg/dL (8.4-10.2); CARBON DIOXIDE 33 mmol/L (22-30); CHLORIDE 94 mmol/L (98-107); GFR AFRICAN-AMERICAN > 60; GLUCOSE,RANDOM 140 mg/dL (65-105); POTASSIUM 3.7 MMOL/L (3.6-5.0); SODIUM 138 mmol/l (132-148); TOTAL PROTEIN 6.4 G/DL (6.3-8.2)
[2017-04-23 09:16] LABS: HEMATOCRIT 42.8 % (34.0-47.0); MEAN CELL VOLUME 87.5 fl (81.0-99.0); MEAN CORPUSCULAR HEMOGLOBIN 28.8 pg (27.0-31.0); MEAN CORPUSCULAR HGB CONC 32.9 g/dL (33.0-37.0); RED CELL DISTRIBUTION WIDTH 14.2 % (11.5-14.5)
[2017-04-23 09:26] LABS: WHITE BLOOD COUNT 8.8 K/uL (4.8-10.8)
[2017-04-23] MEDS: Magnesium Oxide 400 mg Tab UD PO SCH (09:33)
[2017-04-23] MEDS: Omega-3-Acid Ethyl Esters 1 GM Cap PO SCH ×2 (09:33→17:38)
[2017-04-23] MEDS: Sildenafil 20 MG TAB PO SCH ×3 (09:33→17:38)
[2017-04-23] MEDS: Levothyroxine 100 MCG TAB PO SCH (09:34)
[2017-04-23] MEDS: HCTZ/Losartan 12.5/50 Tab PO SCH (09:35)
[2017-04-23] MEDS: Metoprolol Succinate 25 mg XL Tab PO SCH (09:36)
[2017-04-23] MEDS: Pantoprazole 40 mg EC Tab PO SCH (09:39)
[2017-04-23] MEDS: Enoxaparin 40 mg Syringe SC SCH (09:40)
[2017-04-23] MEDS: Insulin Lispro (humaLOG) 100 Units/ml Inj SC SCH ×5 (09:42→22:06)
[2017-04-23] MEDS ORDERED: Magnesium Citrate Oral SOL (300 ml) PO ONE (12:23)
[2017-04-23] MEDS: methylPREDNISolone 30 MG in Sodium Chloride 0.9% 50 ML IV SCH ×2 (17:44→21:40)
--- NOTE | 2017-04-23 23:49 | PN ---
DATE: 04/23/2017 SUBJECTIVE: The patient is seen and examined. Interim events noted. The patient still complains of shortness of breath on exertion, especially in the morning after returning from bathroom herself. Currently, patient is sitting in chair and denies any chest pain or shortness of breath. PHYSICAL EXAMINATION: GENERAL: The patient is in no acute distress. VITAL SIGNS: Stable. HEART: S1, S2 normal and regular. LUNGS: Bilateral good air exchange. Occasional rhonchi, no rales. ABDOMEN: Soft, nontender. EXTREMITIES: No edema, no calf swelling. No tenderness. No acute ischemia. CENTRAL NERVOUS SYSTEM: Essentially unchanged. DIAGNOSTIC DATA: Available diagnostic data reviewed. IMPRESSION: Overall, the patient's general medical condition is stable and improving. PLAN: As ordered. Dirk Guevara MD
[2017-04-24] MEDS: methylPREDNISolone 30 MG in Sodium Chloride 0.9% 50 ML IV SCH (04:57)
[2017-04-24] MEDS: Albuterol-Ipratrop 3 mg / 0.5 (3 ml) UD INH SCH ×5 (04:57→19:17)
[2017-04-24 06:59] LABS: HEMATOCRIT 45.3 % (34.0-47.0); MEAN CORPUSCULAR HEMOGLOBIN 28.9 pg (27.0-31.0); MEAN CORPUSCULAR HGB CONC 32.8 g/dL (33.0-37.0); RED CELL DISTRIBUTION WIDTH 14.1 % (11.5-14.5); WHITE BLOOD COUNT 9.6 K/uL (4.8-10.8)
[2017-04-24 07:03] LABS: ALB/GLOB RATIO 1.4 (1.0-2.1); ALKALINE PHOSPHATASE 96 U/L (38-126); ALT/SGPT 38 U/L (9-52); AST/SGOT 94 U/L (14-36); BILIRUBIN,TOTAL 0.5 mg/dl (0.2-1.3); BLOOD UREA NITROGEN 29 mg/dl (7-17); CARBON DIOXIDE 33 mmol/L (22-30); CHLORIDE 94 mmol/L (98-107); GFR AFRICAN-AMERICAN > 60; GLUCOSE,RANDOM 134 mg/dL (65-105); POTASSIUM 3.8 MMOL/L (3.6-5.0); SODIUM 133 mmol/l (132-148); TOTAL PROTEIN 6.2 G/DL (6.3-8.2)
[2017-04-24] MEDS: Insulin Lispro (humaLOG) 100 Units/ml Inj SC SCH ×4 (07:04→22:00)
[2017-04-24] MEDS: Levothyroxine 100 MCG TAB PO SCH ×2 (07:37→09:04)
[2017-04-24 07:48] VITALS: RESP 20
[2017-04-24] MEDS: Sildenafil 20 MG TAB PO SCH ×3 (08:59→17:08)
[2017-04-24] MEDS: guaiFENesin DM 200 mg-20 mg/10 ml UD PO PRN (09:02)
[2017-04-24] MEDS: HCTZ/Losartan 12.5/50 Tab PO SCH (09:03)
[2017-04-24] MEDS: Magnesium Oxide 400 mg Tab UD PO SCH (09:04)
[2017-04-24] MEDS: Pantoprazole 40 mg EC Tab PO SCH (09:05)
[2017-04-24] MEDS: Enoxaparin 40 mg Syringe SC SCH (09:05)
[2017-04-24] MEDS: Omega-3-Acid Ethyl Esters 1 GM Cap PO SCH ×2 (09:05→17:09)
[2017-04-24] MEDS: Metoprolol Succinate 25 mg XL Tab PO SCH (09:06)
[2017-04-24] MEDS: methylPREDNISolone 20 MG in Sodium Chloride 0.9% 50 ML IV SCH ×3 (12:00→21:54)
--- NOTE | 2017-04-24 13:31 | PN ---
DATE: 04/24/2017 SUBJECTIVE: The patient was seen and examined. Interim events noted. Patient still complaints of occasional exacerbation and shortness of breath. Currently, feels okay. No chest pain. PHYSICAL EXAMINATION: GENERAL: Patient is in no acute distress. VITAL SIGNS: Stable. HEART: S1 and S2 normal, regular. LUNGS: Good bilateral air exchange. ABDOMEN: Soft, nontender. EXTREMITIES: No edema. No calf swelling or tenderness. No acute ischemia. HEALTH AND NUTRITION SPECIALIST: Essentially unchanged. DIAGNOSTIC DATA: Available diagnostic data reviewed. ASSESSMENT: Overall, patient's general medical condition is stable. increasing shortness of breath mainly at night. PLAN: As ordered. Dirk Guevara MD
[2017-04-25] MEDS: Albuterol-Ipratrop 3 mg / 0.5 (3 ml) UD INH SCH ×5 (01:00→15:32)
[2017-04-25] MEDS: methylPREDNISolone 20 MG in Sodium Chloride 0.9% 50 ML IV SCH ×3 (04:40→16:00)
[2017-04-25 06:09] LABS: HEMATOCRIT 47.3 % (34.0-47.0); MEAN CELL VOLUME 88.4 fl (81.0-99.0); MEAN CORPUSCULAR HEMOGLOBIN 28.4 pg (27.0-31.0); MEAN CORPUSCULAR HGB CONC 32.2 g/dL (33.0-37.0); RED CELL DISTRIBUTION WIDTH 14.3 % (11.5-14.5)
[2017-04-25 06:32] LABS: ALB/GLOB RATIO 1.4 (1.0-2.1); ALKALINE PHOSPHATASE 83 U/L (38-126); ALT/SGPT 62 U/L (9-52); AST/SGOT 50 U/L (14-36); BILIRUBIN,TOTAL 0.5 mg/dl (0.2-1.3); BLOOD UREA NITROGEN 38 mg/dl (7-17); CALCIUM 9.1 mg/dL (8.4-10.2); CARBON DIOXIDE 29 mmol/L (22-30); CHLORIDE 94 mmol/L (98-107); GFR AFRICAN-AMERICAN > 60; GLUCOSE,RANDOM 136 mg/dL (65-105); POTASSIUM 4.1 MMOL/L (3.6-5.0); SODIUM 132 mmol/l (132-148); TOTAL PROTEIN 6.1 G/DL (6.3-8.2)
[2017-04-25] MEDS: Levothyroxine 100 MCG TAB PO SCH ×2 (07:26→08:18)
[2017-04-25 08:14] VITALS: TEMP 98.2
[2017-04-25] MEDS: Sildenafil 20 MG TAB PO SCH ×3 (08:17→17:09)
[2017-04-25] MEDS: guaiFENesin DM 200 mg-20 mg/10 ml UD PO PRN (08:18)
[2017-04-25] MEDS: HCTZ/Losartan 12.5/50 Tab PO SCH (08:19)
[2017-04-25] MEDS: Omega-3-Acid Ethyl Esters 1 GM Cap PO SCH ×2 (08:19→17:10)
[2017-04-25] MEDS: Pantoprazole 40 mg EC Tab PO SCH (08:19)
[2017-04-25] MEDS: Magnesium Oxide 400 mg Tab UD PO SCH (08:22)
--- NOTE | 2017-04-25 08:23 | CP.PCM.PN ---
Objective - Vital Signs/Intake and Output Vital Signs (last 24 hours): Temp Pulse Resp BP Pulse Ox 98.2 F 101 H 20 95/64 L 97 04/25/17 08:14 04/25/17 08:14 04/25/17 08:14 04/25/17 00:50 04/25/17 08:14 - Medications Medications: Current Medications Albuterol/Ipratropium (Duoneb 3 Mg/0.5 Mg (3 Ml) Ud) 3 ml INH RQ4 [facility] Last Admin: 04/25/17 07:51 Dose: 3 ml Aspirin (Ecotrin) 81 mg PO DAILY [facility] Last Admin: 04/24/17 09:07 Dose: 81 mg Atorvastatin Calcium (Lipitor) 10 mg PO DAILY [facility] Last Admin: 04/24/17 09:05 Dose: 10 mg Dextrose (Dextrose 50% Inj) 0 ml IV STAT PRN; Protocol PRN Reason: Hyglycemia Protocol Dextrose (Glutose 15) 0 gm PO ONCE PRN; Protocol PRN Reason: Hypoglycemia Protocol Docusate Sodium (Colace) 200 mg PO HS [facility] Last Admin: 04/24/17 21:54 Dose: 200 mg Ergocalciferol (Drisdol 50,000 Intl Units Cap) 1 cap PO Tu [facility] Last Admin: 04/21/17 01:44 Dose: Not Given Furosemide (Lasix) 40 mg PO DAILY [facility] Last Admin: 04/24/17 09:03 Dose: Not Given Glucagon (Glucagen Diagnostic Kit) 0 mg IM STAT PRN; Protocol PRN Reason: Hypoglycemia Protocol Guaifenesin/Dextromethorphan (Robitussin Dm) 10 ml PO Q6 PRN PRN Reason: Cough Last Admin: 04/25/17 08:18 Dose: 10 ml HCTZ/Losartan Potassium (Hyzaar 12.5 Mg-50 Mg) 1 tab PO DAILY [facility] Last Admin: 04/25/17 08:19 Dose: 1 tab Home Med (Linaclotide [Linzess]) 290 mcg PO DAILY PRN PRN Reason: Constipation Home Med (Lipase/Protease/Amylase [Zenpep Dr 20,000 Units Capsule]) 2 cap PO BID [facility] Methylprednisolone 20 mg/ (Sodium Chloride) 50 mls @ 100 mls/hr IV Q6 [facility] Last Admin: 04/25/17 04:40 Dose: 100 mls/hr Insulin Human Lispro (Humalog) 0 units SC ACHS [facility] PRN Reason: Protocol Last Admin: 04/24/17 22:00 Dose: Not Given Levothyroxine Sodium (Synthroid) 100 mcg PO 0630 [facility] Last Admin: 04/25/17 08:18 Dose: 100 mcg Magnesium Oxide (Mag-Ox) 800 mg PO DAILY [facility] Last Admin: 04/24/17 09:04 Dose: 800 mg Metoclopramide HCl (Reglan) 5 mg PO ACTID [facility] Last Admin: 04/25/17 08:17 Dose: 5 mg Metoprolol Succinate (Toprol Xl) 25 mg PO DAILY [facility] Last Admin: 04/24/17 09:06 Dose: Not Given Naproxen (Naproxen) 500 mg PO DAILY PRN PRN Reason: Pain, moderate (4-7) [id number] Ethyl Esters (Lovaza) 2 gm PO BID [facility] Last Admin: 04/25/17 08:19 Dose: 2 gm Pantoprazole Sodium (Protonix Ec Tab) 40 mg PO DAILY [facility] Last Admin: 04/25/17 08:19 Dose: 40 mg Rivastigmine (Exelon 4.6 Mg/24 Hr Patch) 3 patch TD DAILY [facility] Last Admin: 04/25/17 08:20 Dose: 3 patch Sildenafil Citrate (Revatio) 20 mg PO TID [facility] Last Admin: 04/25/17 08:17 Dose: 20 mg Sitagliptin Phosphate (Januvia) 50 mg PO DAILY [facility] Last Admin: 04/25/17 08:19 Dose: 50 mg Spironolactone (Aldactone) 25 mg PO DAILY [facility] Last Admin: 04/24/17 09:06 Dose: 25 mg Tolterodine Tartrate (Detrol) 2 mg PO BID [facility] Last Admin: 04/24/17 17:10 Dose: 2 mg - Labs Labs: 04/25/17 05:00 04/25/17 05:00 Assessment and Plan (1) Dyspnea Assessment & Plan: 81 year old female admitted for worsening dyspnea likely 2' to copd exacerbation Status: Acute (2) Hypothyroid Assessment & Plan: low tsh. currently on synthroid 100mcg Status: Chronic (3) Hypertension Assessment & Plan: BP 90-100s systolic, continue with current medications. Status: Chronic (4) DVT prophylaxis Assessment & Plan: scds, ambulation, oob to chair Status: Acute
[2017-04-25] MEDS: Insulin Lispro (humaLOG) 100 Units/ml Inj SC SCH (08:32)
[2017-04-25] MEDS: Metoprolol Succinate 25 mg XL Tab PO SCH (08:46)
--- NOTE | 2017-04-25 10:43 | PQF GENQUE ---
This form is a permanent part of the medical record 04/25/17 Dr Guevara, Documentation of a history of atrial fibrillation. Current EKG: Sinus Bradycardia with 1st degree AV Block, Left anterior fascicular block. Medication includes: Metoprolol. Clarification of your documentation is requested to better reflect the severity of illness and intensity of treatment of your patient. Indicators present [] Specify: [] [] Specify: [] [] Specify: [] [] Specify: [] Location in the medical record that reflects the above clinical findings: [] Treatment Provided: [] PHYSICIAN'S RESPONSE Type of Atrial Fibrillation: [] Chronic [] Paroxysmal [] Permanent [] Persistent [] Other (please specify type) [] Clinically unable to determine [] Unknown Based on your medical judgment of the clinical indicators outlined above please clarify the following: [] Practitioner response [] If unable to determine, please check the box, sign and date. Present On Admission (POA) Indicator: [] Present at the time of admission [] Not present at the time of admission [] Clinically Undetermined In responding to this query, please exercise your independent professional judgment. The fact that a question is asked does not imply that any particular answer is desired or expected. Thank you for your clarification on this documentation. If you have any questions please call:ext [phone] * Thank you, Shari Hall RN CDMP [facility]
--- NOTE | 2017-04-25 10:47 | PQF CHF ---
This form is a permanent part of the medical record 04/25/17 Dr. Guevara, Documentation of a history of CHF. Medication includes: Lasix. Please clarify the TYPE of CHF. Clarification of your documentation is requested to better reflect the severity of illness and intensity of treatment of your patient. Indicators present [x] Diagnosis of a history of CHF [] BNP > 200 [] Imaging Finding of Pulmonary Edema /Pleural Effusions [] Fluid/Volume Overload [] Pitting edema [] Ejection Fraction < 40% (Indicative of Systolic Heart Failure) [] Ejection Fraction > 40% (Indicative of Diastolic Heart Failure) [] Dyspnea / Orthopenea / Paroxysmal Nocturnal Dyspnea [] Other: Location in the medical record that reflects the above clinical findings: [] Treatment Provided: [] PHYSICIAN'S RESPONSE Based on your medical judgment of the clinical indicators outlined above, are you treating this patient for a known or suspected: [] Acute CHF [] Systolic [] Diastolic [] Combined [] Chronic CHF [] Systolic [] Diastolic [] Combined [] Acute on Chronic CHF []Systolic [] Diastolic [] Combined [] CHF due hypertension [] Acute systolic []Chronic systolic [] Acute/ chronic systolic [] Other, please indicate: [] [] If Unable to Determine, please check the box, sign and date. [] CHF ruled out Present On Admission (POA) Indicator: [] Present at the time of admission [] Not present at the time of admission [] Clinically Undetermined In responding to this query, please exercise your independent professional judgment. The fact that a question is asked does not imply that any particular answer is desired or expected. Thank you for your clarification on this documentation. If you have any questions please call: ext [phone] * Thank you, Shari Hall RN CDMP [facility]
--- NOTE | 2017-04-25 10:53 | PQF GENQUE ---
This form is a permanent part of the medical record 04/25/17 Dr. Guevara, Documentation of a history of Asthma. Medications in the hospital include: Solumedrol, Duonebs. Please clarify the type of asthma. Clarification of your documentation is requested to better reflect the severity of illness and intensity of treatment of your patient. Indicators present [] Specify: [] [] Specify: [] [] Specify: [] [] Specify: [] Location in the medical record that reflects the above clinical findings: [] Treatment Provided: [] PHYSICIAN'S RESPONSE 1. Please clarify type of asthma: [] Childhood [] Cough variant [] Exercise induced [] Late onset [] Mild intermittent [] Mild persistent [] Moderate persistent [] Severe persistent [] With bronchitis(please clarify acuity of bronchitis) [] With chronic lung disease (please document specific chronic lung disease ) [] Other (please specify) [] Clinically unable to determine [] Unknown 2. Please clarify acuity of asthma: [] Uncomplicated [] With exacerbation(acute) [] With status asthmaticus [] Other (please specify) [] Clinically unable to determine [] Unknown Based on your medical judgment of the clinical indicators outlined above please clarify the following: [] Practitioner response [] If unable to determine, please check the box, sign and date. Present On Admission (POA) Indicator: [] Present at the time of admission [] Not present at the time of admission [] Clinically Undetermined In responding to this query, please exercise your independent professional judgment. The fact that a question is asked does not imply that any particular answer is desired or expected. Thank you for your clarification on this documentation. If you have any questions please call:ext [phone] * Thank you, Shari Hall RN CDMP [facility]
--- NOTE | 2017-04-25 14:16 | IP.NPCORE ---
Heart Failure Core Measure - Heart Failure Ejection Fraction: 40 % or Greater Left Ventricular Function to be assessed after discharge: Yes MADELYN Inhibitor Prescribed: No Contraindication/Reason for not providing: On ARB Beta-Julian Prescribed: Metoprolol Succinate Angiotensin II Receptor Julian Prescribed: Yes AnticoagulationTherapy for Atrial Fibrillation/Atrialflutter: No Contraindication/Reason for not providing: N/A Aldosterone Antagonist Prescribed: No Contraindication/Reason for not providing: On loop diuretic Hydralazine Nitrate Prescribed: No Contraindication/Reason for not providing: N/A Implantable Cardioverter Defibrillator Therapy: No Contraindication/Reason for not providing: N/A Cardiac Resynchronization Therapy Prescribed: No Contraindication/Reason for not providing: N/A - Follow up Will be discharged to: Home Follow Up Date (must be within 7 days from discharge): 04/28/17 Follow Up Time: 09:00 COPD Progress Note - COPD Progress Note Spirometry Assessment Completed:: Yes Plan to assess at outpatient follow up: Yes Symptoms:: Increase in Dyspnea Initial CXR:: yes Date:: 04/20/17 Oxygen Saturation/Pulse Oximetry:: 94 ABG:: no ABG Not Indicated (Symptoms Improved): Yes Nebulizers Q2-4 hrs:: Duonebs/Albuterol Therapy Antibiotics Not Indicated: Yes Systemic Steroids w/ methylprednisolone Name/Dose/Frequency:: yes Oxygen Delivery Method: Room Air
[2017-04-25 16:46] VITALS: BP 96/57; PULSE 103; O2SAT 94
--- NOTE | 2017-04-25 16:49 | CP.PCM.DIS ---
<Melinda Boland - Last Filed: 04/25/17 16:46> Provider - Provider Date of Admission: 04/21/17 14:37 Attending physician: Dirk Guevara MD Time Spent in preparation of Discharge (in minutes): 35 Diagnosis - Discharge Diagnosis (1) Dyspnea Status: Acute Comment: improved since admission, pt on home o2 (2) Hypothyroid Status: Chronic Comment: stable (3) Hypertension Status: Chronic Comment: stable Hospital Course - Lab Results Lab Results: Most Recent Lab Values WBC 10.0 K/uL (4.8-10.8) 04/25/17 05:00 RBC 5.35 Mil/uL (3.80-5.20) H 04/25/17 05:00 Hgb 15.2 g/dL (12.0-16.0) 04/25/17 05:00 Hct 47.3 % (34.0-47.0) H 04/25/17 05:00 MCV 88.4 fl (81.0-99.0) 04/25/17 05:00 MCH 28.4 pg (27.0-31.0) 04/25/17 05:00 MCHC 32.2 g/dL (33.0-37.0) L 04/25/17 05:00 RDW 14.3 % (11.5-14.5) 04/25/17 05:00 Plt Count 195 K/uL (130-400) 04/25/17 05:00 MPV 8.9 fl (7.2-11.7) 04/20/17 18:20 Neut % (Auto) 17.3 % (50.0-75.0) L 04/20/17 18:20 Lymph % (Auto) 67.4 % (20.0-40.0) H 04/20/17 18:20 [place] % (Auto) 14.2 % (0.0-10.0) H 04/20/17 18:20 Eos % (Auto) 0.7 % (0.0-4.0) 04/20/17 18:20 Baso % (Auto) 0.4 % (0.0-2.0) 04/20/17 18:20 Neut # 0.6 K/uL (1.8-7.0) L 04/20/17 18:20 Lymph # 2.4 K/uL (1.0-4.3) 04/20/17 18:20 [place] # 0.5 K/uL (0.0-0.8) 04/20/17 18:20 Eos # 0.0 K/uL (0.0-0.7) 04/20/17 18:20 Baso # 0.0 K/uL (0.0-0.2) 04/20/17 18:20 Sodium 132 mmol/l (132-148) 04/25/17 05:00 Potassium 4.1 MMOL/L (3.6-5.0) 04/25/17 05:00 Chloride 94 mmol/L (98-107) L 04/25/17 05:00 Carbon Dioxide 29 mmol/L (22-30) 04/25/17 05:00 Anion Gap 13 (10-20) 04/25/17 05:00 BUN 38 mg/dl (7-17) H 04/25/17 05:00 Creatinine 0.8 mg/dL (0.7-1.2) 04/25/17 05:00 Est GFR ( Amer) > 60 04/25/17 05:00 Est GFR (Non-Af Amer) > 60 04/25/17 05:00 POC Glucose (mg/dL) 145 mg/dL (65-110) H 04/25/17 16:10 Random Glucose 136 mg/dL (65-105) H 04/25/17 05:00 Calcium 9.1 mg/dL (8.4-10.2) 04/25/17 05:00 Total Bilirubin 0.5 mg/dl (0.2-1.3) 04/25/17 05:00 AST 50 U/L (14-36) H D 04/25/17 05:00 ALT 62 U/L (9-52) H D 04/25/17 05:00 Alkaline Phosphatase 83 U/L (38-126) 04/25/17 05:00 Troponin I < 0.0120 ng/mL (0.00-0.120) 04/20/17 18:20 NT-Pro-B Natriuret Pep 481 pg/ml (0-900) 04/20/17 18:20 Total Protein 6.1 G/DL (6.3-8.2) L 04/25/17 05:00 Albumin 3.6 g/dL (3.5-5.0) 04/25/17 05:00 Globulin 2.6 gm/dL (2.2-3.9) 04/25/17 05:00 Albumin/Globulin Ratio 1.4 (1.0-2.1) 04/25/17 05:00 Vitamin B12 > 1000 pg/mL (239-931) H 04/22/17 08:10 TSH 3rd Generation 0.02 mIU/ML (0.46-4.68) L 04/22/17 08:10 Urine Color Yellow (YELLOW) 04/23/17 06:10 Urine Clarity Slighty-cloudy (Clear) 04/23/17 06:10 Urine pH 6.0 (5.0-8.0) 04/23/17 06:10 Ur Specific [place] 1.016 (1.003-1.030) 04/23/17 06:10 Urine Protein Negative mg/dL (NEGATIVE) 04/23/17 06:10 Urine Glucose (UA) Neg mg/dL (Normal) 04/23/17 06:10 Urine Ketones Negative mg/dL (NEGATIVE) 04/23/17 06:10 Urine Blood Negative (NEGATIVE) 04/23/17 06:10 Urine Nitrate Negative (NEGATIVE) 04/23/17 06:10 Urine Bilirubin Negative (NEGATIVE) 04/23/17 06:10 Urine Urobilinogen 0.2-1.0 mg/dL (0.2-1.0) 04/23/17 06:10 Ur Leukocyte Esterase Mod Dorothea/uL (Negative) 04/23/17 06:10 Urine RBC (Auto) 3 /hpf (0-3) 04/23/17 06:10 Urine Microscopic WBC 19 /hpf (0-5) H 04/23/17 06:10 Ur Squamous Epith Cells 3 /hpf (0-5) 04/23/17 06:10 Urine Bacteria Occ (<OCC) H 04/23/17 06:10 Hyaline Casts 3-5 /hpf (0-2) H 04/23/17 06:10 - Hospital Course Hospital Course: Patient seen and examined with attending. 81 year old female admitted for worsening dyspnea likely 2' to asthma/copd exacerbation. Improved with RTC duonebs and steroids. Patient has homemaker and goes to adult day care center. She feels better since admission. - Date & Time of H&P Date of H&P: 04/21/17 Time of H&P: 08:23 Discharge Exam - Head Exam Head Exam: NORMAL INSPECTION - ENT Exam ENT Exam: Mucous Membranes Moist - Respiratory Exam Respiratory Exam: absent: Accessory Muscle Use, Decreased Breath Sounds, Rales, Rhonchi, Respiratory Distress Additional comments: good air entry bilaterally - Cardiovascular Exam Cardiovascular Exam: REGULAR RHYTHM, +S1, +S2 - GI/Abdominal Exam GI & Abdominal Exam: Normal Bowel Sounds, Soft, Unremarkable. absent: Tenderness - Rectal Exam Rectal Exam: Deferred - Neurological Exam Neurological exam: Alert, Oriented x3 - Psychiatric Exam Psychiatric exam: Normal Affect, Normal Mood - Skin Skin Exam: Normal Color Discharge Plan - Follow Up Plan Condition: FAIR Disposition: DISCHARGED TO HOME CARE Instructions: Heart Healthy Diet (DC), COPD (Chronic Obstructive Pulmonary Disease) (DC), Hypertension (DC) Additional Instructions: follow up with primary md 7-10 days Referrals: Dirk Guevara MD [Staff Provider] - Isadora Banuelos MD [Family Provider] - <Dirk Guevara - Last Filed: 04/27/17 14:06> Provider - Provider Date of Admission: 04/21/17 14:37 Attending physician: Dirk Guevara MD Hospital Course - Lab Results Lab Results: Most Recent Lab Values WBC 10.0 K/uL (4.8-10.8) 04/25/17 05:00 RBC 5.35 Mil/uL (3.80-5.20) H 04/25/17 05:00 Hgb 15.2 g/dL (12.0-16.0) 04/25/17 05:00 Hct 47.3 % (34.0-47.0) H 04/25/17 05:00 MCV 88.4 fl (81.0-99.0) 04/25/17 05:00 MCH 28.4 pg (27.0-31.0) 04/25/17 05:00 MCHC 32.2 g/dL (33.0-37.0) L 04/25/17 05:00 RDW 14.3 % (11.5-14.5) 04/25/17 05:00 Plt Count 195 K/uL (130-400) 04/25/17 05:00 MPV 8.9 fl (7.2-11.7) 04/20/17 18:20 Neut % (Auto) 17.3 % (50.0-75.0) L 04/20/17 18:20 Lymph % (Auto) 67.4 % (20.0-40.0) H 04/20/17 18:20 [place] % (Auto) 14.2 % (0.0-10.0) H 04/20/17 18:20 Eos % (Auto) 0.7 % (0.0-4.0) 04/20/17 18:20 Baso % (Auto) 0.4 % (0.0-2.0) 04/20/17 18:20 Neut # 0.6 K/uL (1.8-7.0) L 04/20/17 18:20 Lymph # 2.4 K/uL (1.0-4.3) 04/20/17 18:20 [place] # 0.5 K/uL (0.0-0.8) 04/20/17 18:20 Eos # 0.0 K/uL (0.0-0.7) 04/20/17 18:20 Baso # 0.0 K/uL (0.0-0.2) 04/20/17 18:20 Sodium 132 mmol/l (132-148) 04/25/17 05:00 Potassium 4.1 MMOL/L (3.6-5.0) 04/25/17 05:00 Chloride 94 mmol/L (98-107) L 04/25/17 05:00 Carbon Dioxide 29 mmol/L (22-30) 04/25/17 05:00 Anion Gap 13 (10-20) 04/25/17 05:00 BUN 38 mg/dl (7-17) H 04/25/17 05:00 Creatinine 0.8 mg/dL (0.7-1.2) 04/25/17 05:00 Est GFR ( Amer) > 60 04/25/17 05:00 Est GFR (Non-Af Amer) > 60 04/25/17 05:00 POC Glucose (mg/dL) 145 mg/dL (65-110) H 04/25/17 16:10 Random Glucose 136 mg/dL (65-105) H 04/25/17 05:00 Calcium 9.1 mg/dL (8.4-10.2) 04/25/17 05:00 Total Bilirubin 0.5 mg/dl (0.2-1.3) 04/25/17 05:00 AST 50 U/L (14-36) H D 04/25/17 05:00 ALT 62 U/L (9-52) H D 04/25/17 05:00 Alkaline Phosphatase 83 U/L (38-126) 04/25/17 05:00 Troponin I < 0.0120 ng/mL (0.00-0.120) 04/20/17 18:20 NT-Pro-B Natriuret Pep 481 pg/ml (0-900) 04/20/17 18:20 Total Protein 6.1 G/DL (6.3-8.2) L 04/25/17 05:00 Albumin 3.6 g/dL (3.5-5.0) 04/25/17 05:00 Globulin 2.6 gm/dL (2.2-3.9) 04/25/17 05:00 Albumin/Globulin Ratio 1.4 (1.0-2.1) 04/25/17 05:00 Vitamin B12 > 1000 pg/mL (239-931) H 04/22/17 08:10 TSH 3rd Generation 0.02 mIU/ML (0.46-4.68) L 04/22/17 08:10 Urine Color Yellow (YELLOW) 04/23/17 06:10 Urine Clarity Slighty-cloudy (Clear) 04/23/17 06:10 Urine pH 6.0 (5.0-8.0) 04/23/17 06:10 Ur Specific [place] 1.016 (1.003-1.030) 04/23/17 06:10 Urine Protein Negative mg/dL (NEGATIVE) 04/23/17 06:10 Urine Glucose (UA) Neg mg/dL (Normal) 04/23/17 06:10 Urine Ketones Negative mg/dL (NEGATIVE) 04/23/17 06:10 Urine Blood Negative (NEGATIVE) 04/23/17 06:10 Urine Nitrate Negative (NEGATIVE) 04/23/17 06:10 Urine Bilirubin Negative (NEGATIVE) 04/23/17 06:10 Urine Urobilinogen 0.2-1.0 mg/dL (0.2-1.0) 04/23/17 06:10 Ur Leukocyte Esterase Mod Dorothea/uL (Negative) 04/23/17 06:10 Urine RBC (Auto) 3 /hpf (0-3) 04/23/17 06:10 Urine Microscopic WBC 19 /hpf (0-5) H 04/23/17 06:10 Ur Squamous Epith Cells 3 /hpf (0-5) 04/23/17 06:10 Urine Bacteria Occ (<OCC) H 04/23/17 06:10 Hyaline Casts 3-5 /hpf (0-2) H 04/23/17 06:10
== END 2017-04-25 18:15 | disposition home health service (06) | DRG 191 ==
LOC: H.ER 17:10 → H.ERHOLD 21:38 → H.MEDSURG1 22:45 → OBSVTOIN 04-21 14:37
PROVIDERS: ADMIT Internal Medicine; ATTEND Internal Medicine
PROC: 3E0F7GC Introduction of Other Therapeutic Substance into Respiratory Tract, Via Natural or Artificial Opening (ICD-10-PCS; principal; 2017-04-21)
DX: J44.1 Chronic obstructive pulmonary disease with (acute) exacerbation (principal); I13.0 Hypertensive heart and chronic kidney disease with heart failure and stage 1 through stage 4 chronic kidney disease, or unspecified chronic kidney disease; F03.90 Unspecified dementia, unspecified severity, without behavioral disturbance, psychotic disturbance, mood disturbance, and anxiety; I50.22 Chronic systolic (congestive) heart failure; I48.1 Persistent atrial fibrillation; E11.22 Type 2 diabetes mellitus with diabetic chronic kidney disease; Z99.81 Dependence on supplemental oxygen; E03.9 Hypothyroidism, unspecified; E78.5 Hyperlipidemia, unspecified; F31.9 Bipolar disorder, unspecified; I25.10 Atherosclerotic heart disease of native coronary artery without angina pectoris; M81.0 Age-related osteoporosis without current pathological fracture; Z86.73 Personal history of transient ischemic attack (TIA), and cerebral infarction without residual deficits; F32.9 Major depressive disorder, single episode, unspecified; K44.9 Diaphragmatic hernia without obstruction or gangrene; E78.00 Pure hypercholesterolemia, unspecified; I44.30 Unspecified atrioventricular block; J45.50 Severe persistent asthma, uncomplicated; N18.9 Chronic kidney disease, unspecified; Z79.1 Long term (current) use of non-steroidal anti-inflammatories (NSAID); Z79.82 Long term (current) use of aspirin; Z79.899 Other long term (current) drug therapy; Z90.49 Acquired absence of other specified parts of digestive tract; Z96.60 Presence of unspecified orthopedic joint implant; F41.9 Anxiety disorder, unspecified; K29.70 Gastritis, unspecified, without bleeding; K59.00 Constipation, unspecified; M19.90 Unspecified osteoarthritis, unspecified site; R32 Unspecified urinary incontinence; Z79.84 Long term (current) use of oral hypoglycemic drugs; R00.1 Bradycardia, unspecified

== ENCOUNTER 2017-09-10 20:34 | Emergency (ER) | payer MEDICARE, MEDICAID ==
[2017-09-10 20:34] VITALS: PULSE 105; BMI 35.6
[2017-09-10] MEDS ORDERED: Sodium Chloride 0.9% 1,000 ML IV STA (21:13)
--- NOTE | 2017-09-10 21:17 | ED PDOC ---
HPI: Abdomen Time Seen by Provider: 09/10/17 20:50 Chief Complaint (Nursing): GI Problem Chief Complaint (Provider): vomiting and diarrhea History Per: Patient Additional Complaint(s): 81 y/o Filipino female with a history of CHF, A-Fib, asthma, and dyslipidemia, brought in by EMS, presents to the ED via EMS for eval of vomiting since 6pm, dizziness, and headache (as per triage note). Pt in bed on her side, will not speak. Reports she only wants to speak to ED RN Shawna Meadows. Pt made aware Shawna is not working this evening and she needs to tell global technical writer her symptoms. Pt only admitted to vomiting. Pt soiled herself and when asked if she is having diarrhea, Pt nodded yes. Of note: Pt's son arrived at bedside and reports that his mother was doing fine and then ate some Baklava around 6 pm and symptoms started shortly after. Past Medical History Reviewed: Historical Data, Nursing Documentation, Vital Signs Vital Signs: Last Vital Signs Temp 98.1 F 09/11/17 05:03 Pulse 87 09/11/17 05:03 Resp 18 09/11/17 05:03 BP 121/65 09/11/17 05:03 Pulse Ox 95 09/11/17 05:03 - Medical History PMH: Anxiety, Arthritis, Asthma, Atrial Fibrillation, Bipolar Disorder, CAD, Cardia Arrhythmia (a fib), CHF, COPD, CVA, Dementia, Depression, Diabetes, Diverticulitis, Fractures (Left Hip displacement), Gastritis, Hiatal Hernia, HTN , Hypercholesterolemia, Hyperlipidemia, Hypothyroidism, Osteoporosis, Peripheral Edema Denies: HIV, Chronic Kidney Disease - Surgical History Surgical History: Appendectomy, Cholecystectomy (documented in history but patient does not acknowledge), - Family History Family History: States: Unknown Family Hx - Social History Current smoker - smoking cessation education provided: No Alcohol: None - Immunization History Hx Tetanus Toxoid Vaccination: No Hx Influenza Vaccination: No Hx Pneumococcal Vaccination: No - Home Medications Home Medications: Ambulatory Orders Medication Instructions Recorded Donepezil HCl [Aricept Odt] 1 tab PO DAILY 08/04/17 Albuterol HFA [Ventolin HFA 90 2 in INH Q6 PRN #1 inhaler 08/22/17 mcg/actuation (8 g)] Apixaban [Eliquis] 2.5 mg PO BID #60 tab 08/22/17 Aspirin [Ecotrin] 81 mg PO DAILY #30 tabec 08/22/17 Atorvastatin [Lipitor] 10 mg PO DAILY #30 tab 08/22/17 Digoxin 0.125 mg PO DAILY #30 solution 08/22/17 Digoxin [Lanoxin] 125 mcg PO DAILY 08/22/17 Docusate [Colace] 200 mg PO HS #60 cap 08/22/17 Esomeprazole Magnesium [Nexium] 40 mg PO DAILY #30 ecc 08/22/17 Fluticasone/Salmeterol 250/50 1 inh INH Q12 #1 dsk 08/22/17 [Advair Diskus 250/50] Furosemide [Lasix] 40 mg PO BID 08/22/17 Gabapentin 300 mg PO TID #90 capsule 08/22/17 Levothyroxine [Synthroid] 100 mcg PO DAILY #30 tab 08/22/17 Lipase/Protease/Amylase [Zenpep Dr 2 cap PO BID #120 capsule.dr 08/22/17 3,000 Units Capsule] Losartan/Hydrochlorothiazide 1 tab PO DAILY #30 tablet 08/22/17 [Losartan-Hctz 50-12.5 mg Tab] Magnesium Oxide [Magox 400] 400 mg PO DAILY #30 tablet 08/22/17 Meloxicam [Mobic] 7.5 mg PO DAILY #30 tab 08/22/17 Metoprolol Tartrate [Lopressor] 25 mg PO Q12 #60 tab 08/22/17 Rivastigmine 9.5 mg/24 hr [Exelon 1 patch TD DAILY #30 patch 08/22/17 9.5 mg/24 hr Patch] SITagliptin [Januvia] 50 mg PO DAILY #30 tab 08/22/17 Sildenafil [Revatio] 20 mg PO TID #90 tab 08/22/17 Sucralfate [Carafate Oral Susp] 1 gm PO BID #1 udc 08/22/17 Tolterodine [Detrol LA] 4 mg PO DAILY #30 cer 08/22/17 Ondansetron ODT [Zofran ODT] 4 mg PO Q6 PRN #10 odt 09/11/17 - Allergies Allergies/Adverse Reactions: Allergies Allergy/AdvReac Type Severity Reaction Status Date / Time No Known Allergies Allergy Verified 09/10/17 20:49 Review of Systems ROS Statement: Except As Marked, All Systems Reviewed And Found Negative Gastrointestinal: Positive for: Nausea, Vomiting, Diarrhea Neurological: Positive for: Dizziness Physical Exam - Reviewed Nursing Documentation Reviewed: Yes Vital Signs Reviewed: Yes - Physical Exam Appears: Positive for: Well, Non-toxic, No Acute Distress Head Exam: Positive for: ATRAUMATIC, NORMAL INSPECTION, NORMOCEPHALIC Skin: Positive for: Normal Color, Warm, DRY Gastrointestinal/Abdominal: Positive for: Other (Pt deferred) - Laboratory Results Result Diagrams: 09/10/17 22:21 09/10/17 22:21 - ECG O2 Sat by Pulse Oximetry: 93 Medical Decision Making Medical Decision Making: IV access established and treatment initiated with IVF, Zofran and Pepcid Diagnostics ordered Pt refused to give urine sample Labs resulted and reviewed. Pt given K.Dur for K of 3.2 On re-eval, Pt asleep in NAD. Pt woken up by global technical writer. abdomen soft, non tender and non distended. Pt reports feeling well. Pt however refusing to go home. Pt reports she can not go home, prefers to stay in the hospital. Pt's son contacted and voicemail left asking for return call in order to arrange bulk picker for his mother. Indications for admission discussed and Pt again reports she does not want to go home. Pt advised that she is medically cleared at this time and admission is not clinically advised at this time. [facility] contacted and case discussed. arrangements made for admission Disposition - Clinical Impression Clinical Impression: Gastroenteritis - Patient ED Disposition Is Patient to be Admitted: No - Disposition Disposition: Routine/Home Disposition Time: 06:09 Condition: STABLE Prescriptions: Ondansetron ODT [Zofran ODT] 4 mg PO Q6 PRN #10 odt PRN Reason: Nausea/Vomiting Instructions: Gastroenteritis (ED) Forms: [facility] (Cuban) - POA Present On Arrival: None
[2017-09-10 22:24] LABS: BASO # 0.1 K/uL (0.0-0.2); BASO % 0.9 % (0.0-2.0); EOS % 0.2 % (0.0-4.0); HEMOGLOBIN 14.3 g/dL (12.0-16.0); LYMPH # 1.7 K/uL (1.0-4.3); LYMPH % 21.5 % (20.0-40.0); MEAN CELL VOLUME 89.5 fl (81.0-99.0); MEAN CORPUSCULAR HEMOGLOBIN 28.3 pg (27.0-31.0); MEAN CORPUSCULAR HGB CONC 31.6 g/dL (33.0-37.0); MEAN PLATELET VOLUME 9.2 fl (7.2-11.7); MONO % 12.3 % (0.0-10.0); NEUT # 5.1 K/uL (1.8-7.0); NEUT % 65.1 % (50.0-75.0); NRBC % 0.1 % (0.0-0.0); RBC 5.06 Mil/uL (3.80-5.20); WHITE BLOOD COUNT 7.9 K/uL (4.8-10.8)
[2017-09-10 22:36] LABS: ABG ALLEN TEST YES; ARTERIAL BLOOD GAS HCO3 30.9 mmol/L (21-28); ARTERIAL BLOOD GAS O2 SAT 98.3 % (95-98); ARTERIAL BLOOD GAS PCO2 42 mm/Hg (35-45); ARTERIAL BLOOD GAS PH 7.49 (7.35-7.45); ARTERIAL BLOOD GAS PO2 66 mm/Hg (80-100); ARTERIAL BLOOD GAS TCO2 33.3 mmol/L (22-28)
[2017-09-10 22:38] LABS: ALB/GLOB RATIO 1.4 (1.0-2.1); ALBUMIN 4.1 g/dL (3.5-5.0); ALT/SGPT 40 U/L (9-52); AMYLASE 54 U/L (30-110); AST/SGOT 46 U/L (14-36); BLOOD UREA NITROGEN 16 mg/dl (7-17); CALCIUM 9.7 mg/dL (8.4-10.2); GFR AFRICAN-AMERICAN > 60; GFR NON-AFRICAN AMERICAN > 60; LIPASE 119 U/L (23-300)
[2017-09-10] MEDS ORDERED: Potassium Chloride 20 mEq ER Tab PO ONE (23:09)
[2017-09-11] MEDS ORDERED: HYDROmorphone 0.5 mg/0.5 ml ISec IVP STA (00:03)
[2017-09-11] MEDS ORDERED: HYDROmorphone 0.5 mg/0.5 ml ISec ONE (00:07)
--- NOTE | 2017-09-11 07:15 | ED PDOC ---
- Laboratory Results Result Diagrams: 09/10/17 22:21 09/10/17 22:21 - ECG O2 Sat by Pulse Oximetry: 93 - Progress ED Course And Treament: 715a Pt continues to be symptomatic report feeling nauseous and dizzy, despite medications in ER. Will hospitalize for intractable nausea, gastroenteritis. Needs continued IV meds/fluids gently due to h/o CHF. Disposition Discussed With Dr.: Naresh Goodman Doctor Will See Patient In The: Hospital Counseled Patient/Family Regarding: Studies Performed, Diagnosis - Clinical Impression Clinical Impression: Gastroenteritis, Intractable vomiting - POA Present On Arrival: None - Disposition Disposition: Hospitalized as Observation Patient Disposition Time: 19:15 Condition: FAIR
[2017-09-11 08:28] VITALS: PULSE 75; RESP 20; TEMP 98.7; O2SAT 97
[2017-09-11 08:41] VITALS: BP 116/73
--- NOTE | 2017-09-11 18:24 | CARD ---
APPROVED REPORT EKG Measurement Heart [id number] <Conclusion> Atrial fibrillation Left axis deviation Nonspecific ST and T wave abnormality Abnormal ECG
== END 2017-09-11 13:35 | disposition home or self-care (01) ==
LOC: H.ER 20:34 → H.ERHOLD 09-11 07:12 → UNDOADMOB 09-11 07:12
DX: K52.9 Noninfective gastroenteritis and colitis, unspecified (principal)
CPT/HCPCS: 36600; 80053; 82150; 82803; 83690; 84484; 85025; 87045; 93005; 96374; 96375; 96376; 99284; J2405; J2765

== ENCOUNTER 2018-01-27 22:59 | Observation (INO) | payer MEDICARE, MEDICAID ==
[2018-01-27 23:00] VITALS: PULSE 105; BMI 35.6
--- NOTE | 2018-01-27 23:31 | ED PDOC ---
HPI: Abdomen Time Seen by Provider: 01/27/18 23:09 Chief Complaint (Nursing): Weakness/Neurological Deficit Chief Complaint (Provider): nausea History Per: Patient History/Exam Limitations: no limitations Onset/Duration Of Symptoms: Days (2) Location Of Pain/Discomfort: Diffuse Quality Of Discomfort: Cramping, "Pain" Associated Symptoms: Chills, Nausea, Vomiting. denies: Fever Past Medical History Reviewed: Historical Data, Nursing Documentation, Vital Signs Vital Signs: Last Vital Signs Temp 98.2 F 01/28/18 17:00 Pulse 64 01/28/18 17:00 Resp 20 01/28/18 17:00 BP 120/83 01/28/18 17:00 Pulse Ox 98 01/28/18 19:15 - Medical History PMH: Anxiety, Arthritis, Asthma, Atrial Fibrillation, Bipolar Disorder, CAD, Cardia Arrhythmia (a fib), CHF, COPD, CVA, Dementia, Depression, Diabetes, Diverticulitis, Fractures (Left Hip displacement), Gastritis, Hiatal Hernia, HTN , Hypercholesterolemia, Hyperlipidemia, Hypothyroidism, Osteoporosis, Peripheral Edema Denies: HIV, Chronic Kidney Disease - Surgical History Surgical History: Appendectomy, Cholecystectomy (documented in history but patient does not acknowledge), - Family History Family History: States: Unknown Family Hx - Social History Current smoker - smoking cessation education provided: No - Immunization History Hx Tetanus Toxoid Vaccination: No Hx Influenza Vaccination: No Hx Pneumococcal Vaccination: No - Home Medications Home Medications: Ambulatory Orders Medication Instructions Recorded Donepezil HCl [Aricept Odt] 1 tab PO DAILY 08/04/17 Albuterol HFA [Ventolin HFA 90 2 in INH Q6 PRN #1 inhaler 08/22/17 mcg/actuation (8 g)] Apixaban [Eliquis] 2.5 mg PO BID #60 tab 08/22/17 Aspirin [Ecotrin] 81 mg PO DAILY #30 tabec 08/22/17 Atorvastatin [Lipitor] 10 mg PO DAILY #30 tab 08/22/17 Digoxin 0.125 mg PO DAILY #30 solution 08/22/17 Digoxin [Lanoxin] 125 mcg PO DAILY 08/22/17 Docusate [Colace] 200 mg PO HS #60 cap 08/22/17 Esomeprazole Magnesium [Nexium] 40 mg PO DAILY #30 ecc 08/22/17 Fluticasone/Salmeterol 250/50 1 inh INH Q12 #1 dsk 08/22/17 [Advair Diskus 250/50] Furosemide [Lasix] 40 mg PO BID 08/22/17 Gabapentin 300 mg PO TID #90 capsule 08/22/17 Levothyroxine [Synthroid] 100 mcg PO DAILY #30 tab 08/22/17 Lipase/Protease/Amylase [Zenpep Dr 2 cap PO BID #120 capsule.dr 08/22/17 3,000 Unit Capsule] Losartan/Hydrochlorothiazide 1 tab PO DAILY #30 tablet 08/22/17 [Losartan-Hctz 50-12.5 mg Tab] Magnesium Oxide [Magox 400] 400 mg PO DAILY #30 tablet 08/22/17 Meloxicam [Mobic] 7.5 mg PO DAILY #30 tab 08/22/17 Metoprolol Tartrate [Lopressor] 25 mg PO Q12 #60 tab 08/22/17 Rivastigmine 9.5 mg/24 hr [Exelon 1 patch TD DAILY #30 patch 08/22/17 9.5 mg/24 hr Patch] SITagliptin [Januvia] 50 mg PO DAILY #30 tab 08/22/17 Sildenafil [Revatio] 20 mg PO TID #90 tab 08/22/17 Sucralfate [Carafate Oral Susp] 1 gm PO BID #1 udc 08/22/17 Tolterodine [Detrol LA] 4 mg PO DAILY #30 cer 08/22/17 Ondansetron ODT [Zofran ODT] 4 mg PO Q6 PRN #10 odt 09/11/17 - Allergies Allergies/Adverse Reactions: Allergies Allergy/AdvReac Type Severity Reaction Status Date / Time No Known Allergies Allergy Verified 01/27/18 23:04 Review of Systems ROS Statement: Except As Marked, All Systems Reviewed And Found Negative Constitutional: Positive for: Chills, Weakness, Malaise. Negative for: Fever Cardiovascular: Positive for: Light Headedness. Negative for: Chest Pain Respiratory: Positive for: Shortness of Breath (chronically) Gastrointestinal: Positive for: Nausea, Abdominal Pain, Constipation (2 days). Negative for: Diarrhea Physical Exam - Reviewed Nursing Documentation Reviewed: Yes Vital Signs Reviewed: Yes - Physical Exam Appears: Positive for: In Acute Distress (mild painful distress and tired appearing) Head Exam: Positive for: ATRAUMATIC, NORMOCEPHALIC Skin: Positive for: Warm, Dry Eye Exam: Positive for: Other (RIGHT globe prosthesis, LEFT pupil reactive with conjunctival injection) ENT: Positive for: Other (tacky mucus membranes) Neck: Positive for: Painless ROM, Supple Cardiovascular/Chest: Positive for: Chest Non Tender, Irregularly Irregular ( regular rate). Negative for: Murmur Respiratory: Positive for: Decreased Breath Sounds (at bases). Negative for: Accessory Muscle Use, Rales, Rhonchi, Respiratory Distress Gastrointestinal/Abdominal: Positive for: Soft, Tenderness (diffuse) Back: Positive for: Normal Inspection. Negative for: Decreased ROM Extremity: Positive for: Normal ROM, Pedal Edema Lymphatic: Negative for: Adenopathy Neurologic/Psych: Positive for: Alert. Negative for: Motor/Sensory Deficits - Laboratory Results Result Diagrams: 01/28/18 01:09 01/28/18 01:09 - ECG O2 Sat by Pulse Oximetry: 98 Medical Decision Making Medical Decision Making: Time: 2325 Plan: -- Type and Screen -- CT Abd & Pelvis IV Contrast -- EKG -- B-Type Natriuretic -- CMP -- Digoxin -- Lipase -- Magnesium -- Phosphorous -- Troponin I -- ED Urine Dipstick -- CBC with differentials -- PTT -- Prothrombin Time -- CXR Portable -- Blood culture -- Iuss Master Analyst -- IV Insertion -- Glucose, Blood, POC Time: 0000 -- Patient endorsed to Dr. Trent, pending ED workup, assessment, and final diagnosis. Scribe Attestation: Documented by Jatin Alvarado, acting as a scribe for Dr. Vilma Sampson. Provider Scribe Attestation: All medical record entries made by the Scribe were at my direction and personally dictated by me. I have reviewed the chart and agree that the record accurately reflects my personal performance of the medical decision making for this patient. I have also personally directed, reviewed, and agree with the discharge instructions and disposition. Disposition - Clinical Impression Clinical Impression: Generalized muscle weakness Counseled Patient/Family Regarding: Studies Performed - Disposition Disposition: Transfer of Care Disposition Time: 00:00 Condition: STABLE Patient Signed Over To: Danie Trent
--- NOTE | 2018-01-28 00:17 | ED PDOC ---
- Laboratory Results Result Diagrams: 01/28/18 01:09 01/28/18 01:09 - ECG O2 Sat by Pulse Oximetry: 98 (RA) Pulse Ox Interpretation: Normal Medical Decision Making Medical Decision Making: Time: 0000 -- Patient endorsed to me by Dr. Sampson, pending CT and labs. Time: 303 CT ABD RESULTS FINDINGS: Lung bases: Unremarkable. No mass. No consolidation. ABDOMEN: Liver: There is a diffuse decrease in hepatic parenchymal density, consistent with fatty infiltration. Gallbladder and bile ducts: There has been a cholecystectomy. No ductal dilation. Pancreas: Unremarkable. No mass. No ductal dilation. Spleen: Unremarkable. No splenomegaly. Adrenals: Unremarkable. No mass. Kidneys and ureters: There are left renal cysts. Largest in the left upper pole measures 1.8 cm. No hydronephrosis.The right kidney is normal. Stomach and bowel: Mild diverticulosis is present in the sigmoid and descending colon. There is a moderate amount of retained stool in the rectum. No obstruction. No mucosal thickening. There is no wall thickening or pericolonic stranding to suggest colitis. PELVIS: Appendix: The appendix demonstrates moderate diffuse distention measuring 13 mm , consistent with moderate acute appendicitis. There is mild inflammatory stranding. Coronal images 46-51 series 601. Bladder: Unremarkable. No mass. Reproductive: Unremarkable as visualized. ABDOMEN and PELVIS: Intraperitoneal space: Unremarkable. No free air. No significant fluid collection. Bones/joints: Postsurgical changes in the left hip. Osteopenia and degenerative changes in the spine. No acute fracture. No dislocation. Soft tissues: Unremarkable. Vasculature: The aorta demonstrates mild atherosclerotic calcification. No abdominal aortic aneurysm. Lymph nodes: Unremarkable. No enlarged lymph nodes. IMPRESSION: Acute appendicitis. No rupture or abscess. Diverticulosis. No acute diverticulitis. Left renal cysts. No followup necessary. Fatty liver. Cholecystectomy. Thank you for allowing us to participate in the care of your patient. Dictated and Authenticated by: Viktoriya Moreno MD 01/28/2018 3:34 AM Eastern Time ([place] & [place]) Time; 517 -- At this time, CT results discussed with patient. Patient denies any history of appendectomy. Time: 525 -- Case discussed with surgical services director. [address] Rose and Dr Delgadillo for admission with surgical consult. Scribe Attestation: Documented by Jatin Alvarado, acting as a scribe for Dr. Danie Trent MD. Provider Scribe Attestation: All medical record entries made by the Scribe were at my direction and personally dictated by me. I have reviewed the chart and agree that the record accurately reflects my personal performance of the medical decision making and the department course for this patient. I have also personally directed, reviewed, and agree with the discharge instructions and disposition. Disposition Discussed With : Keven Rose Doctor Will See Patient In The: Hospital Counseled Patient/Family Regarding: Studies Performed, Diagnosis - Clinical Impression Clinical Impression: Generalized muscle weakness, Acute appendicitis - POA Present On Arrival: None - Disposition Disposition: Admitted as In-Patient Disposition Time: 03:50 Condition: FAIR
[2018-01-28 01:12] LABS: BASO % 0.6 % (0.0-2.0); EOS % 0.2 % (0.0-4.0); HEMOGLOBIN 13.5 g/dL (12.0-16.0); LYMPH # 1.7 K/uL (1.0-4.3); LYMPH % 26.8 % (20.0-40.0); MEAN CELL VOLUME 85.3 fl (81.0-99.0); MEAN CORPUSCULAR HEMOGLOBIN 27.2 pg (27.0-31.0); MEAN CORPUSCULAR HGB CONC 31.9 g/dL (33.0-37.0); MONO # 0.7 K/uL (0.0-0.8); MONO % 10.9 % (0.0-10.0); NEUT # 3.9 K/uL (1.8-7.0); NEUT % 61.5 % (50.0-75.0); RBC 4.95 Mil/uL (3.80-5.20); RED CELL DISTRIBUTION WIDTH 15.1 % (11.5-14.5); WHITE BLOOD COUNT 6.3 K/uL (4.8-10.8)
[2018-01-28 01:34] LABS: INR 1.2 (0.9-1.2); PARTIAL THROMBOPLASTIN TIME 34.7 Seconds (25.6-37.1); PROTHROMBIN TIME 13.1 Seconds (9.8-13.1)
[2018-01-28 01:54] LABS: ALB/GLOB RATIO 1.3 (1.0-2.1); ALBUMIN 3.8 g/dL (3.5-5.0); ALT/SGPT 43 U/L (9-52); AST/SGOT 35 U/L (14-36); B-TYPE NATRIURETIC PEPTIDE 1860 pg/ml (0-900); BLOOD UREA NITROGEN 17 mg/dl (7-17); CALCIUM 9.6 mg/dL (8.4-10.2); GFR AFRICAN-AMERICAN > 60; GFR NON-AFRICAN AMERICAN > 60; LIPASE 137 U/L (23-300)
[2018-01-28] MEDS ORDERED: Iohexol 300 100 ML IJ ONE (02:19)
[2018-01-28] MEDS ORDERED: Sodium Chloride 0.9% 50 ML IV ONE (02:20)
[2018-01-28 03:29] LABS: SQUAMOUS EPITHIAL 4 /hpf (0-5); URINE BACTERIA RARE (<OCC); URINE BILIRUBIN NEGATIVE (NEGATIVE); URINE BLOOD MODERATE (NEGATIVE); URINE CLARITY SLIGHTY-CLOUDY (Clear); URINE COLOR YELLOW (YELLOW); URINE GLUCOSE (UA) NEG (Normal); URINE LEUKOCYTE ESTERASE LARGE Leu/uL (Negative); URINE PROTEIN 30 mg/dL (NEGATIVE); URINE UROBILINOGEN 0.2-1.0 mg/dL (0.2-1.0)
--- NOTE | 2018-01-28 03:34 | CT ---
EXAM: CT Abdomen and Pelvis With Intravenous Contrast CLINICAL HISTORY: 82 years old, female; Signs and symptoms; Nausea; Additional info: Abdominal pain nausea TECHNIQUE: Axial computed tomography images of the abdomen and pelvis with intravenous contrast. All CT scans at this facility use one or more dose reduction techniques, viz.: automated exposure control; ma/kV adjustment per patient size (including targeted exams where dose is matched to indication; i.e. head); or iterative reconstruction technique. Coronal and sagittal reformatted images were created and reviewed. CONTRAST: 95 mL of omnipaque 300 administered intravenously. COMPARISON: CT - ABD PELVIS PO IV CONTRAST 2015-10-12 05:16 FINDINGS: Lung bases: Unremarkable. No mass. No consolidation. ABDOMEN: Liver: There is a diffuse decrease in hepatic parenchymal density, consistent with fatty infiltration. Gallbladder and bile ducts: There has been a cholecystectomy. No ductal dilation. Pancreas: Unremarkable. No mass. No ductal dilation. Spleen: Unremarkable. No splenomegaly. Adrenals: Unremarkable. No mass. Kidneys and ureters: There are left renal cysts. Largest in the left upper pole measures 1.8 cm. No hydronephrosis.The right kidney is normal. Stomach and bowel: Mild diverticulosis is present in the sigmoid and descending colon. There is a moderate amount of retained stool in the rectum. No obstruction. No mucosal thickening. There is no wall thickening or pericolonic stranding to suggest colitis. PELVIS: Appendix: The appendix demonstrates moderate diffuse distention measuring 13 mm, consistent with moderate acute appendicitis. There is mild inflammatory stranding. Coronal images 46-51 series 601. Bladder: Unremarkable. No mass. Reproductive: Unremarkable as visualized. ABDOMEN and PELVIS: Intraperitoneal space: Unremarkable. No free air. No significant fluid collection. Bones/joints: Postsurgical changes in the left hip. Osteopenia and degenerative changes in the spine. No acute fracture. No dislocation. Soft tissues: Unremarkable. Vasculature: The aorta demonstrates mild atherosclerotic calcification. No abdominal aortic aneurysm. Lymph nodes: Unremarkable. No enlarged lymph nodes. IMPRESSION: Acute appendicitis. No rupture or abscess. Diverticulosis. No acute diverticulitis. Left renal cysts. No followup necessary. Fatty liver. Cholecystectomy.
[2018-01-28] MEDS ORDERED: Piperacillin/Tazobact 3.375 GM in Sodium Chloride 0.9% 100 ML IVPB STA (04:51)
[2018-01-28] MEDS ORDERED: Piperacillin/Tazobact 3.375 gm Inj IVPB ONE (05:04)
[2018-01-28] MEDS ORDERED: Sodium Chloride 0.45% 1,000 ML IV SCH (07:00)
--- NOTE | 2018-01-28 08:58 | CP.PCM.CON ---
History of Present Illness - History of Present Illness History of Present Illness: Surgery Consult note. Dr. Delgadillo 82yo F with PMHx of HTN, DM, Asthma, Arthritis, CHF, PUD, lymphoma, A.Fib on eliquis, Anxiety, CVA, HLD here for evaluation of abdominal pain. Patient states that the pain started about 4 days ago, located in the epigastric region and radiates to bilateral lower abdominal quadrants. Pain described as sharp, colicky and gradually getting worse. Associated with nausea, anorexia. Denies any fevers or chills. Denies any association with food intake. No Sick contacts. No cough. No chest pain or shortness of breath. Does report some weakness and generalized malaise. Also reports symptoms of dysuria off and on for the past few weeks, has been treated with oral antibiotics, denies current antibiotic use. Reports some similar mild urinary complaints of dysuria and frequency currently. PMHx: GERD, HTN, DM, Asthma, Arthritis, CHF, PUD, Lymphoma, A. Fib on eliquis, Anxiety, CVA, HLD PSHx: x2, Pacemaker placement, Cholecystectomy Social Hx: Current Tobacco use. Denies ETOH. Denies illicit drugs. Family Hx: non-contributory NKDA Review of Systems - Review of Systems All systems: reviewed and no additional remarkable complaints except - Constitutional Constitutional: Anorexia, Malaise. absent: Chills, Fever - Cardiovascular Cardiovascular: absent: Chest Pain, Dyspnea - Respiratory Respiratory: absent: Dyspnea - Gastrointestinal Gastrointestinal: Abdominal Pain, Dyspepsia. absent: Diarrhea, Dysphagia, Nausea, Vomiting - Genitourinary Genitourinary: Dysuria, Urinary Frequency Past Patient History - Infectious Disease Hx of Infectious Diseases: None - Past Medical History & Family History Past Medical History?: Yes Past Family History: Reviewed and not pertinent - CARDIAC Hx Cardiac Disorders: Yes - PULMONARY Hx Respiratory Disorders: Yes - NEUROLOGICAL Hx Neurological Disorder: Yes - HEENT Hx HEENT Problems: Yes - RENAL Hx Chronic Kidney Disease: No - ENDOCRINE/METABOLIC Hx Endocrine Disorders: Yes - HEMATOLOGICAL/ONCOLOGICAL Hx Human Immunodeficiency Virus (HIV): No - INTEGUMENTARY Hx Dermatological Problems: No - MUSCULOSKELETAL/RHEUMATOLOGICAL Hx Musculoskeletal Disorders: Yes - GASTROINTESTINAL Hx Diverticulitis: Yes Hx Gastritis: Yes - GENITOURINARY/GYNECOLOGICAL Hx Genitourinary Disorders: Yes - PSYCHIATRIC Hx Anxiety: Yes Hx Bipolar Disorder: Yes Hx Depression: Yes - SURGICAL HISTORY Hx Appendectomy: Yes Hx Cholecystectomy: Yes (documented in history but patient does not acknowledge) - ANESTHESIA Hx Anesthesia: Yes Hx Anesthesia Reactions: No Hx Malignant Hyperthermia: No Meds Allergies/Adverse Reactions: Allergies Allergy/AdvReac Type Severity Reaction Status Date / Time No Known Allergies Allergy Verified 01/27/18 23:04 - Medications Medications: Current Medications Sodium Chloride (Sodium Chloride 0.45%) 1,000 mls @ 80 mls/hr IV .[id number] GLADYS Stop: 01/29/18 06:56 Last Admin: 01/28/18 08:19 Dose: 80 mls/hr Metoclopramide HCl (Reglan) 10 mg IVP Q6 PRN PRN Reason: Nausea/Vomiting Physical Exam - Constitutional Appears: Non-toxic, No Acute Distress - Head Exam Head Exam: ATRAUMATIC, NORMAL INSPECTION, NORMOCEPHALIC - Eye Exam Eye Exam: EOMI, Normal appearance. absent: Scleral icterus - ENT Exam ENT Exam: Mucous Membranes Moist - Respiratory Exam Respiratory Exam: NORMAL BREATHING PATTERN. absent: Accessory Muscle Use, Respiratory Distress - Cardiovascular Exam Cardiovascular Exam: RRR. absent: JVD - GI/Abdominal Exam GI & Abdominal Exam: Soft. absent: Distended, Guarding Additional comments: tender to palpation RLQ and LLQ, left worse than right. No rebound, no guarding. Soft, non-distended. - Extremities Exam Extremities exam: Positive for: normal inspection. Negative for: calf tenderness - Neurological Exam Neurological exam: Alert, Oriented x3 Results - Vital Signs Recent Vital Signs: Last Vital Signs Temp 98.0 F 01/28/18 08:08 Pulse 59 L 01/28/18 08:08 Resp 18 01/28/18 08:08 BP 120/74 01/28/18 08:08 Pulse Ox 95 01/28/18 08:08 - Labs Result Diagrams: 01/28/18 01:09 01/28/18 01:09 Labs: Laboratory Results - last 24 hr 01/28/18 01/28/18 01/28/18 00:06 00:45 01:09 WBC RBC Hgb Hct MCV MCH MCHC RDW Plt Count MPV Neut % (Auto) Lymph % (Auto) [place] % (Auto) Eos % (Auto) Baso % (Auto) Neut # (Auto) Lymph # (Auto) [place] # (Auto) Eos # (Auto) Baso # (Auto) PT INR APTT Sodium 138 Potassium 4.2 Chloride 98 Carbon Dioxide 32 H Anion Gap 12 BUN 17 Creatinine 0.7 Est GFR ( Amer) > 60 Est GFR (Non-Af Amer) > 60 POC Glucose (mg/dL) 118 H Random Glucose 122 H Calcium 9.6 Phosphorus 3.0 Magnesium 2.0 Total Bilirubin 0.6 AST 35 ALT 43 Alkaline Phosphatase 113 Troponin I 0.0130 NT-Pro-B Natriuret Pep 1860 H Total Protein 6.9 Albumin 3.8 Globulin 3.0 Albumin/Globulin Ratio 1.3 Lipase 137 Urine Color Urine Clarity Urine pH Ur Specific [place] Urine Protein Urine Glucose (UA) Urine Ketones Urine Blood Urine Nitrate Urine Bilirubin Urine Urobilinogen Ur Leukocyte Esterase Urine RBC (Auto) Urine Microscopic WBC Ur Squamous Epith Cells Urine Bacteria Digoxin Blood Type O POSITIVE Blood Type Confirm Antibody Screen Negative BBK History Checked No verified bt 01/28/18 01/28/18 01/28/18 01:09 01:09 01:09 WBC 6.3 RBC 4.95 Hgb 13.5 Hct 42.2 MCV 85.3 D MCH 27.2 MCHC 31.9 L RDW 15.1 H Plt Count 210 MPV 9.0 Neut % (Auto) 61.5 Lymph % (Auto) 26.8 [place] % (Auto) 10.9 H Eos % (Auto) 0.2 Baso % (Auto) 0.6 Neut # (Auto) 3.9 Lymph # (Auto) 1.7 [place] # (Auto) 0.7 Eos # (Auto) 0.0 Baso # (Auto) 0.0 PT 13.1 INR 1.2 APTT 34.7 Sodium Potassium Chloride Carbon Dioxide Anion Gap BUN Creatinine Est GFR ( Amer) Est GFR (Non-Af Amer) POC Glucose (mg/dL) Random Glucose Calcium Phosphorus Magnesium Total Bilirubin AST ALT Alkaline Phosphatase Troponin I NT-Pro-B Natriuret Pep Total Protein Albumin Globulin Albumin/Globulin Ratio Lipase Urine Color Urine Clarity Urine pH Ur Specific [place] Urine Protein Urine Glucose (UA) Urine Ketones Urine Blood Urine Nitrate Urine Bilirubin Urine Urobilinogen Ur Leukocyte Esterase Urine RBC (Auto) Urine Microscopic WBC Ur Squamous Epith Cells Urine Bacteria Digoxin 0.8 Blood Type Blood Type Confirm Antibody Screen BBK History Checked 01/28/18 01/28/18 02:14 03:15 WBC RBC Hgb Hct MCV MCH MCHC RDW Plt Count MPV Neut % (Auto) Lymph % (Auto) [place] % (Auto) Eos % (Auto) Baso % (Auto) Neut # (Auto) Lymph # (Auto) [place] # (Auto) Eos # (Auto) Baso # (Auto) PT INR APTT Sodium Potassium Chloride Carbon Dioxide Anion Gap BUN Creatinine Est GFR ( Amer) Est GFR (Non-Af Amer) POC Glucose (mg/dL) Random Glucose Calcium Phosphorus Magnesium Total Bilirubin AST ALT Alkaline Phosphatase Troponin I NT-Pro-B Natriuret Pep Total Protein Albumin Globulin Albumin/Globulin Ratio Lipase Urine Color Yellow Urine Clarity Slighty-cloudy Urine pH 6.0 Ur Specific [place] > 1.030 H Urine Protein 30 Urine Glucose (UA) Neg Urine Ketones Negative Urine Blood Moderate Urine Nitrate Negative Urine Bilirubin Negative Urine Urobilinogen 0.2-1.0 Ur Leukocyte Esterase Large Urine RBC (Auto) 6 H Urine Microscopic WBC 46 H Ur Squamous Epith Cells 4 Urine Bacteria Rare Digoxin Blood Type Blood Type Confirm O POSITIVE Antibody Screen BBK History Checked Assessment & Plan - Assessment and Plan (Free Text) Assessment: 82yo F with multiple co-morbidities here for abdominal pain. - CT abd/pelvis noted: findings suspicious for appendicitis. 13mm inflamed appendix with some periappendiceal fat stranding. Plan: - Continue medical management - F/u cardiology recs. f/u ECHO as ordered. Cardiac clearance for possible surgery intervention - Continue IV Abx for now - NPO. IVF - serial abdominal exams - anti-emetics prn - We will make more recommendations as we follow patient's clinical course Further recs as per Dr. Elie Cristina PGY1 surgery pager: [phone]
--- NOTE | 2018-01-28 09:03 | RAD ---
HISTORY: weakness COMPARISON: Chest radiograph dated 04/21/2017. FINDINGS: LUNGS: Stable chronic prominence of the bilateral interstitial markings. No focal consolidation. PLEURA: No significant pleural effusion identified, no pneumothorax apparent. CARDIOVASCULAR: Left subclavian access pacemaker with single lead terminating the right ventricle. Atherosclerotic aortic calcifications. Cardiomediastinal silhouette stably enlarged. OSSEOUS STRUCTURES: Unchanged. VISUALIZED UPPER ABDOMEN: Normal. OTHER FINDINGS: None. IMPRESSION: Cardiac pacemaker in place. No focal consolidation or pleural effusion.
[2018-01-28] MEDS: Piperacillin/Tazobact 3.375 GM in Sodium Chloride 0.9% 100 ML IVPB SCH ×3 (10:35→22:20)
--- NOTE | 2018-01-28 14:24 | CP.PCM.HP ---
History of Present Illness - History of Present Illness History of Present Illness: CC: Abdominal pain. 82 y/o F, Multiple chronic medical conditions, including PUD, A Fib on Eliquis, Hx CVA, PPM. brought via EMS to [facility] on 01/27/18, for evaluation of moderate abdominal pain, epigastric area, radiated to b/l lower quadrants, gradually increased on DOA with no relief, sharp pain, colic type, associated to nausea, weaknesses. Worsening symptoms: Dysuria, found with Acute Appendicitis in CT Pelvis/ Abdomen. Aggravated factor: Food. Pt denied: Fever, chills, vomiting, diarrhea, CP, palpitations, SOB, cough, sick contact, recent travel out of [place]. CXR: No consolidations, no Pleural effusion, no Pneumothorax. Pacemaker in place. Present on Admission - Present on Admission Any Indicators Present on Admission: No Review of Systems - Constitutional Constitutional: Weakness - EENT Eyes: Loss of Vision (R eye) Ears: Other (negative) Nose/Mouth/Throat: Other (negative) - Cardiovascular Cardiovascular: Other (negative) - Respiratory Respiratory: Other (negative) - Gastrointestinal Gastrointestinal: Abdominal Pain, Nausea - Genitourinary Genitourinary: Dysuria, Urinary Incontinence - Musculoskeletal Musculoskeletal: Arthralgias, Back Pain - Integumentary Integumentary: Other (negative) - Neurological Neurological: Weakness - Psychiatric Psychiatric: Depression - Endocrine Endocrine: Other (negative) - Hematologic/Lymphatic Hematologic: Other (negative) Past Patient History - Infectious Disease Hx of Infectious Diseases: None - Past Medical History & Family History Past Medical History?: Yes Past Family History: Reviewed and not pertinent Pertinent Family History: Unknown - Past Social History Smoking Status: Never Smoked Chewing Tobacco Use: Yes Alcohol: None Drugs: Denies Home Situation {Lives}: Alone - CARDIAC Hx Cardiac Disorders: Yes Hx Atrial Fibrillation: Yes Hx Congestive Heart Failure: Yes Hx Hypertension: Yes - PULMONARY Hx Respiratory Disorders: Yes Hx Asthma: Yes Hx Chronic Obstructive Pulmonary Disease (COPD): Yes - NEUROLOGICAL Hx Neurological Disorder: Yes HX Cerebrovascular Accident: Yes - HEENT Hx HEENT Problems: Yes Hx Blind: Yes (R eye) - RENAL Hx Chronic Kidney Disease: No - ENDOCRINE/METABOLIC Hx Endocrine Disorders: Yes Hx Hypothyroidism: Yes - HEMATOLOGICAL/ONCOLOGICAL Hx Blood Disorders: Yes Hx Human Immunodeficiency Virus (HIV): No Hx Lymphoma: Yes - INTEGUMENTARY Hx Dermatological Problems: No - MUSCULOSKELETAL/RHEUMATOLOGICAL Hx Musculoskeletal Disorders: Yes Hx Arthritis: Yes Hx Back Pain: Yes - GASTROINTESTINAL Hx Gastrointestinal Disorders: Yes Hx Constipation: Yes Hx Diverticulitis: Yes Hx Gastritis: Yes Hx Gastroesophageal Reflux: Yes - GENITOURINARY/GYNECOLOGICAL Hx Genitourinary Disorders: Yes Hx Incontinence: Yes - PSYCHIATRIC Hx Psychophysiologic Disorder: Yes Hx Anxiety: Yes Hx Bipolar Disorder: Yes Hx Depression: Yes - SURGICAL HISTORY Hx Surgeries: Yes Hx Cholecystectomy: Yes (documented in history but patient does not acknowledge) Other/Comment: PPM - ANESTHESIA Hx Anesthesia: Yes Hx Anesthesia Reactions: No Hx Malignant Hyperthermia: No Meds Allergies/Adverse Reactions: Allergies Allergy/AdvReac Type Severity Reaction Status Date / Time No Known Allergies Allergy Verified 01/27/18 23:04 Physical Exam - Constitutional Appears: No Acute Distress, Chronically Ill - Head Exam Head Exam: NORMAL INSPECTION - Eye Exam Additional comments: R eye blind - ENT Exam ENT Exam: Normal Exam - Neck Exam Neck exam: Positive for: Normal Inspection - Respiratory Exam Respiratory Exam: NORMAL BREATHING PATTERN - Cardiovascular Exam Cardiovascular Exam: Irregular Rhythm - GI/Abdominal Exam GI & Abdominal Exam: Normal Bowel Sounds, Soft, Tenderness (mild to palpation RLQ,LLQ). absent: Guarding, Rebound - Extremities Exam Extremities exam: Positive for: normal inspection - Back Exam Back exam: NORMAL INSPECTION - Neurological Exam Neurological exam: Alert, Oriented x3 Additional comments: No focal motor/sensory deficit. - Psychiatric Exam Psychiatric exam: Normal Affect - Skin Skin Exam: Warm Results - Vital Signs Recent Vital Signs: Last Vital Signs Temp 98.0 F 01/28/18 09:00 Pulse 59 L 01/28/18 09:00 Resp 18 01/28/18 09:00 BP 120/74 01/28/18 09:00 Pulse Ox 95 01/28/18 09:00 dangelo Cardona - Labs Result Diagrams: 01/28/18 01:09 01/28/18 01:09 Labs: Laboratory Results - last 24 hr 01/28/18 01/28/18 01/28/18 00:06 00:45 01:09 WBC RBC Hgb Hct MCV MCH MCHC RDW Plt Count MPV Neut % (Auto) Lymph % (Auto) [place] % (Auto) Eos % (Auto) Baso % (Auto) Neut # (Auto) Lymph # (Auto) [place] # (Auto) Eos # (Auto) Baso # (Auto) PT INR APTT Sodium 138 Potassium 4.2 Chloride 98 Carbon Dioxide 32 H Anion Gap 12 BUN 17 Creatinine 0.7 Est GFR ( Amer) > 60 Est GFR (Non-Af Amer) > 60 POC Glucose (mg/dL) 118 H Random Glucose 122 H Calcium 9.6 Phosphorus 3.0 Magnesium 2.0 Total Bilirubin 0.6 AST 35 ALT 43 Alkaline Phosphatase 113 Troponin I 0.0130 NT-Pro-B Natriuret Pep 1860 H Total Protein 6.9 Albumin 3.8 Globulin 3.0 Albumin/Globulin Ratio 1.3 Lipase 137 Urine Color Urine Clarity Urine pH Ur Specific [place] Urine Protein Urine Glucose (UA) Urine Ketones Urine Blood Urine Nitrate Urine Bilirubin Urine Urobilinogen Ur Leukocyte Esterase Urine RBC (Auto) Urine Microscopic WBC Ur Squamous Epith Cells Urine Bacteria Digoxin Blood Type O POSITIVE Blood Type Confirm Antibody Screen Negative BBK History Checked No verified bt 01/28/18 01/28/18 01/28/18 01:09 01:09 01:09 WBC 6.3 RBC 4.95 Hgb 13.5 Hct 42.2 MCV 85.3 D MCH 27.2 MCHC 31.9 L RDW 15.1 H Plt Count 210 MPV 9.0 Neut % (Auto) 61.5 Lymph % (Auto) 26.8 [place] % (Auto) 10.9 H Eos % (Auto) 0.2 Baso % (Auto) 0.6 Neut # (Auto) 3.9 Lymph # (Auto) 1.7 [place] # (Auto) 0.7 Eos # (Auto) 0.0 Baso # (Auto) 0.0 PT 13.1 INR 1.2 APTT 34.7 Sodium Potassium Chloride Carbon Dioxide Anion Gap BUN Creatinine Est GFR ( Amer) Est GFR (Non-Af Amer) POC Glucose (mg/dL) Random Glucose Calcium Phosphorus Magnesium Total Bilirubin AST ALT Alkaline Phosphatase Troponin I NT-Pro-B Natriuret Pep Total Protein Albumin Globulin Albumin/Globulin Ratio Lipase Urine Color Urine Clarity Urine pH Ur Specific [place] Urine Protein Urine Glucose (UA) Urine Ketones Urine Blood Urine Nitrate Urine Bilirubin Urine Urobilinogen Ur Leukocyte Esterase Urine RBC (Auto) Urine Microscopic WBC Ur Squamous Epith Cells Urine Bacteria Digoxin 0.8 Blood Type Blood Type Confirm Antibody Screen BBK History Checked 01/28/18 01/28/18 02:14 03:15 WBC RBC Hgb Hct MCV MCH MCHC RDW Plt Count MPV Neut % (Auto) Lymph % (Auto) [place] % (Auto) Eos % (Auto) Baso % (Auto) Neut # (Auto) Lymph # (Auto) [place] # (Auto) Eos # (Auto) Baso # (Auto) PT INR APTT Sodium Potassium Chloride Carbon Dioxide Anion Gap BUN Creatinine Est GFR ( Amer) Est GFR (Non-Af Amer) POC Glucose (mg/dL) Random Glucose Calcium Phosphorus Magnesium Total Bilirubin AST ALT Alkaline Phosphatase Troponin I NT-Pro-B Natriuret Pep Total Protein Albumin Globulin Albumin/Globulin Ratio Lipase Urine Color Yellow Urine Clarity Slighty-cloudy Urine pH 6.0 Ur Specific [place] > 1.030 H Urine Protein 30 Urine Glucose (UA) Neg Urine Ketones Negative Urine Blood Moderate Urine Nitrate Negative Urine Bilirubin Negative Urine Urobilinogen 0.2-1.0 Ur Leukocyte Esterase Large Urine RBC (Auto) 6 H Urine Microscopic WBC 46 H Ur Squamous Epith Cells 4 Urine Bacteria Rare Digoxin Blood Type Blood Type Confirm O POSITIVE Antibody Screen BBK History Checked reviewed J.P. - Imaging and Cardiology CT scan - abdomen Status: Report reviewed by me ([place]) CT scan - pelvis Status: Report reviewed by me ([place]) Chest x-ray Status: Report reviewed by me ([place]) Assessment & Plan (1) Abdominal pain Status: Acute Priority: High (2) Appendicitis Status: Acute Priority: High (3) Generalized muscle weakness Status: Chronic Priority: High (4) A-fib Status: Acute (5) Hx of lymphoma Status: Acute - Assessment and Plan (Free Text) Plan: Echo, Blood and U C-S, NPO diet, continue Zosyn and rest of Tx. PT, OT eval, Cardiology and Surgery consult. - Date & Time Date: 01/28/18 Time: 12:00
[2018-01-28] MEDS: Albuterol-Ipratrop 3 mg / 0.5 (3 ml) UD INH SCH (22:56)
[2018-01-29] MEDS: Piperacillin/Tazobact 3.375 GM in Sodium Chloride 0.9% 100 ML IVPB SCH (03:48)
[2018-01-29] MEDS: Albuterol-Ipratrop 3 mg / 0.5 (3 ml) UD INH SCH ×2 (07:32→13:30)
[2018-01-29 07:54] VITALS: RESP 20
--- NOTE | 2018-01-29 10:01 | CP.PCM.PN ---
Subjective - Date & Time of Evaluation Date of Evaluation: 01/29/18 Time of Evaluation: 07:25 - Subjective Subjective: Surgery Progress note. Dr. Delgadillo Pt seen and examined at bedside. No acute events overnight. Patient still reports some mild abdominal pain, however, it has improved since arrival. no new complaints. Denies any N/V/D. No F/C. Objective - Vital Signs/Intake and Output Vital Signs (last 24 hours): Temp Pulse Resp BP Pulse Ox 98 F 60 20 133/85 99 01/29/18 07:54 01/29/18 07:54 01/29/18 07:54 01/29/18 07:54 01/29/18 07:54 - Medications Medications: Current Medications Albuterol/Ipratropium (Duoneb 3 Mg/0.5 Mg (3 Ml) Ud) 3 ml INH RTID GLADYS Last Admin: 01/29/18 07:32 Dose: 3 ml Piperacillin Sod/Tazobactam (Sod 3.375 gm/ Sodium Chloride) 100 mls @ 100 mls/ hr IVPB Q6 GLADYS PRN Reason: Protocol Last Admin: 01/29/18 03:48 Dose: 100 mls/hr Metoclopramide HCl (Reglan) 10 mg IVP Q6 PRN PRN Reason: Nausea/Vomiting - Labs Labs: 01/28/18 01:09 01/28/18 01:09 PT 13.1 Seconds (9.8-13.1) 01/28/18 01:09 INR 1.2 (0.9-1.2) 01/28/18 01:09 APTT 34.7 Seconds (25.6-37.1) 01/28/18 01:09 - Constitutional Appears: Non-toxic, No Acute Distress - Head Exam Head Exam: ATRAUMATIC, NORMAL INSPECTION, NORMOCEPHALIC - Eye Exam Eye Exam: EOMI, Normal appearance - ENT Exam ENT Exam: Mucous Membranes Moist - Respiratory Exam Respiratory Exam: NORMAL BREATHING PATTERN. absent: Accessory Muscle Use, Respiratory Distress - Cardiovascular Exam Cardiovascular Exam: RRR. absent: JVD - GI/Abdominal Exam GI & Abdominal Exam: Soft. absent: Distended, Firm, Guarding, Rebound Additional comments: Mild tenderness to deep palpation LLQ and RLQ, Left worse than right. No Rebound , no guarding. No peritoneal signs - Extremities Exam Extremities Exam: Normal Inspection. absent: Calf Tenderness - Neurological Exam Neurological Exam: Alert, Awake, Oriented x3 Assessment and Plan - Assessment and Plan (Free Text) Assessment: 82yo F with multiple co-morbidities here for abdominal pain. Plan: - Continue medical management - F/u cardiology recs. - Continue IV Abx for now - May advance diet from surgical standpoint. - Patient's symptoms improving with non-operative management, CT findings non- specific, similar complaints in the past. - serial abdominal exams - anti-emetics prn - No surgical intervention warranted at this present time Further recs as per Dr. Elie Cristina PGY1 surgery pager: [phone]
--- NOTE | 2018-01-29 11:46 | CARD ---
APPROVED REPORT EKG Measurement Heart [id number] <Conclusion> Atrial fibrillation with frequent ventricular-paced complexes Left axis deviation Consider failure of sensing Abnormal ECG
--- NOTE | 2018-01-29 11:49 | CARD ---
APPROVED REPORT EKG Measurement Heart [id number] <Conclusion> Atrial fibrillation with premature ventricular or aberrantly conducted complexes and with ventricular escape complexes Left axis deviation Abnormal ECG
--- NOTE | 2018-01-29 11:56 | CARD ---
APPROVED REPORT EXAM: Two-dimensional and M-mode echocardiogram with Doppler and color Doppler. Other Information Quality : GoodRhythm : Pacemaker INDICATION Pre-Op 2D DIMENSIONS IVSd1.17 (0.7-1.1cm)LVDd4.15 (3.9-5.9cm) LVOT Diameter2.15 (1.8-2.4cm)PWd0.78 (0.7-1.1cm) IVSs1.42 (0.8-1.2cm)LVDs2.57 (2.5-4.0cm) FS (%) 37.9 %PWs1.39 (0.8-1.2cm) M-Mode DIMENSIONS Left Atrium (MM)3.50 (2.5-4.0cm)IVSd0.99 (0.7-1.1cm) Aortic Root3.06 (2.2-3.7cm)LVDd4.30 (4.0-5.6cm) Aortic Cusp Exc.1.63 (1.5-2.0cm)PWd0.91 (0.7-1.1cm) IVSs1.10 cmFS (%) 31 % LVDs2.95 (2.0-3.8cm)PWs1.24 cm Mitral Valve E/A ratio0.0 TDI E/Lateral E'0.0E/Medial E'0.0 LEFT VENTRICLE The left ventricle is normal size. There is normal left ventricular wall thickness. The left ventricular function is normal. The left ventricular ejection fraction is 55% There is normal LV segmental wall motion. Transmitral Doppler flow pattern is Grade I-abnormal relaxation pattern. The left ventricular diastolic function is normal. No left ventricle thrombus noted on this study. There is no ventricular septal defect visualized. There is no left ventricular aneurysm. There is no mass noted in the left ventricle. RIGHT VENTRICLE The right ventricle is normal size. There is normal right ventricular wall thickness. The right ventricular systolic function is normal. ATRIA The left atrium size is normal. The right atrium size is normal. The interatrial septum is intact with no evidence for an atrial septal defect. AORTIC VALVE The aortic valve is mildly to moderately sclerotic. No aortic regurgitation is present. There is no aortic valvular stenosis. There is no aortic valvular vegetation. MITRAL VALVE The mitral valve is normal in structure. There is no evidence of mitral valve prolapse. There is no mitral valve stenosis. There is no mitral valve regurgitation noted. TRICUSPID VALVE The tricuspid valve is normal in structure. There is no tricuspid valve regurgitation noted. There is no tricuspid valve prolapse or vegetation. There is no tricuspid valve stenosis. PULMONIC VALVE The pulmonary valve is normal in structure. There is no pulmonic valvular regurgitation. There is no pulmonic valvular stenosis. GREAT VESSELS The aortic root is normal in size. The ascending aorta is normal in size. The IVC is normal in size and collapses >50% with inspiration. PERICARDIAL EFFUSION The pericardium appears normal. There is no pleural effusion. <Conclusion> Normal LV systolic function Aortic Valve Sclerosis
--- NOTE | 2018-01-29 15:38 | CP.PCM.PN ---
Subjective - Date & Time of Evaluation Date of Evaluation: 01/29/18 - Subjective Subjective: F/U Abdominal pain. Objective - Vital Signs/Intake and Output Vital Signs (last 24 hours): Temp Pulse Resp BP Pulse Ox 98 F 60 20 133/85 99 01/29/18 07:54 01/29/18 07:54 01/29/18 07:54 01/29/18 07:54 01/29/18 07:54 - Medications Medications: Current Medications Albuterol/Ipratropium (Duoneb 3 Mg/0.5 Mg (3 Ml) Ud) 3 ml INH RTID GLADYS Last Admin: 01/29/18 13:30 Dose: 3 ml Piperacillin Sod/Tazobactam (Sod 3.375 gm/ Sodium Chloride) 100 mls @ 100 mls/ hr IVPB Q6 GLADYS PRN Reason: Protocol Last Admin: 01/29/18 03:48 Dose: 100 mls/hr Metoclopramide HCl (Reglan) 10 mg IVP Q6 PRN PRN Reason: Nausea/Vomiting - Labs Labs: 01/28/18 01:09 01/28/18 01:09 PT 13.1 Seconds (9.8-13.1) 01/28/18 01:09 INR 1.2 (0.9-1.2) 01/28/18 01:09 APTT 34.7 Seconds (25.6-37.1) 01/28/18 01:09 - Constitutional Appears: No Acute Distress, Chronically Ill - Head Exam Head Exam: NORMAL INSPECTION - Eye Exam Additional comments: R eye blind - ENT Exam ENT Exam: Normal Exam - Neck Exam Neck Exam: Normal Inspection - Respiratory Exam Respiratory Exam: NORMAL BREATHING PATTERN - Cardiovascular Exam Cardiovascular Exam: Irregular Rhythm - GI/Abdominal Exam GI & Abdominal Exam: Soft, Tenderness (mild on palpation RLQ, LLQ), Normal Bowel Sounds - Extremities Exam Extremities Exam: Normal Inspection - Back Exam Back Exam: NORMAL INSPECTION - Neurological Exam Neurological Exam: Alert, Oriented x3 Additional comments: No focal motor/sensory deficit - Psychiatric Exam Psychiatric exam: Normal Affect - Skin Skin Exam: Warm Assessment and Plan (1) Abdominal pain Status: Acute (2) Appendicitis Status: Acute (3) Generalized muscle weakness Status: Chronic (4) A-fib Status: Acute (5) Hx of lymphoma Status: Acute
[2018-01-29 16:17] VITALS: BP 128/89; PULSE 68; TEMP 97.9; O2SAT 95
--- NOTE | 2018-01-29 17:20 | CP.PCM.DIS ---
Provider - Provider Date of Admission: 01/28/18 03:52 Attending physician: Keven Rose MD Diagnosis - Discharge Diagnosis (1) Abdominal pain Status: Acute Priority: High (2) Appendicitis Status: Acute Priority: High (3) Generalized muscle weakness Status: Chronic Priority: High (4) A-fib Status: Acute (5) Hx of lymphoma Status: Acute Hospital Course - Lab Results Lab Results: Micro Results 01/28/18 03:15 Urine,Catheterized Urine Culture - Preliminary Gram Negative Bhavesh 01/27/18 12:45 Blood-Venous Blood Culture - Preliminary NO GROWTH AFTER 24 HOURS 01/27/18 01:15 Blood-Venous Blood Culture - Preliminary NO GROWTH AFTER 24 HOURS Most Recent Lab Values WBC 6.3 K/uL (4.8-10.8) 01/28/18 01:09 RBC 4.95 Mil/uL (3.80-5.20) 01/28/18 01:09 Hgb 13.5 g/dL (12.0-16.0) 01/28/18 01:09 Hct 42.2 % (34.0-47.0) 01/28/18 01:09 MCV 85.3 fl (81.0-99.0) D 01/28/18 01:09 MCH 27.2 pg (27.0-31.0) 01/28/18 01:09 MCHC 31.9 g/dL (33.0-37.0) L 01/28/18 01:09 RDW 15.1 % (11.5-14.5) H 01/28/18 01:09 Plt Count 210 K/uL (130-400) 01/28/18 01:09 MPV 9.0 fl (7.2-11.7) 01/28/18 01:09 Neut % (Auto) 61.5 % (50.0-75.0) 01/28/18 01:09 Lymph % (Auto) 26.8 % (20.0-40.0) 01/28/18 01:09 [place] % (Auto) 10.9 % (0.0-10.0) H 01/28/18 01:09 Eos % (Auto) 0.2 % (0.0-4.0) 01/28/18 01:09 Baso % (Auto) 0.6 % (0.0-2.0) 01/28/18 01:09 Neut # (Auto) 3.9 K/uL (1.8-7.0) 01/28/18 01:09 Lymph # (Auto) 1.7 K/uL (1.0-4.3) 01/28/18 01:09 [place] # (Auto) 0.7 K/uL (0.0-0.8) 01/28/18 01:09 Eos # (Auto) 0.0 K/uL (0.0-0.7) 01/28/18 01:09 Baso # (Auto) 0.0 K/uL (0.0-0.2) 01/28/18 01:09 PT 13.1 Seconds (9.8-13.1) 01/28/18 01:09 INR 1.2 (0.9-1.2) 01/28/18 01:09 APTT 34.7 Seconds (25.6-37.1) 01/28/18 01:09 Sodium 138 mmol/l (132-148) 01/28/18 01:09 Potassium 4.2 MMOL/L (3.6-5.0) 01/28/18 01:09 Chloride 98 mmol/L (98-107) 01/28/18 01:09 Carbon Dioxide 32 mmol/L (22-30) H 01/28/18 01:09 Anion Gap 12 (10-20) 01/28/18 01:09 BUN 17 mg/dl (7-17) 01/28/18 01:09 Creatinine 0.7 mg/dl (0.7-1.2) 01/28/18 01:09 Est GFR ( Amer) > 60 01/28/18 01:09 Est GFR (Non-Af Amer) > 60 01/28/18 01:09 POC Glucose (mg/dL) 135 mg/dL (65-110) H 01/29/18 16:29 Random Glucose 122 mg/dL (65-105) H 01/28/18 01:09 Calcium 9.6 mg/dL (8.4-10.2) 01/28/18 01:09 Phosphorus 3.0 mg/dl (2.5-4.5) 01/28/18 01:09 Magnesium 2.0 MG/DL (1.6-2.3) 01/28/18 01:09 Total Bilirubin 0.6 mg/dl (0.2-1.3) 01/28/18 01:09 AST 35 U/L (14-36) 01/28/18 01:09 ALT 43 U/L (9-52) 01/28/18 01:09 Alkaline Phosphatase 113 U/L (38-126) 01/28/18 01:09 Troponin I 0.0130 ng/mL (0.00-0.120) 01/28/18 01:09 NT-Pro-B Natriuret Pep 1860 pg/ml (0-900) H 01/28/18 01:09 Total Protein 6.9 G/DL (6.3-8.2) 01/28/18 01:09 Albumin 3.8 g/dL (3.5-5.0) 01/28/18 01:09 Globulin 3.0 gm/dL (2.2-3.9) 01/28/18 01:09 Albumin/Globulin Ratio 1.3 (1.0-2.1) 01/28/18 01:09 Lipase 137 U/L (23-300) 01/28/18 01:09 Urine Color Yellow (YELLOW) 01/28/18 03:15 Urine Clarity Slighty-cloudy (Clear) 01/28/18 03:15 Urine pH 6.0 (5.0-8.0) 01/28/18 03:15 Ur Specific [place] > 1.030 (1.003-1.030) H 01/28/18 03:15 Urine Protein 30 mg/dL (NEGATIVE) 01/28/18 03:15 Urine Glucose (UA) Neg mg/dL (Normal) 01/28/18 03:15 Urine Ketones Negative mg/dL (NEGATIVE) 01/28/18 03:15 Urine Blood Moderate (NEGATIVE) 01/28/18 03:15 Urine Nitrate Negative (NEGATIVE) 01/28/18 03:15 Urine Bilirubin Negative (NEGATIVE) 01/28/18 03:15 Urine Urobilinogen 0.2-1.0 mg/dL (0.2-1.0) 01/28/18 03:15 Ur Leukocyte Esterase Large Dorothea/uL (Negative) 01/28/18 03:15 Urine RBC (Auto) 6 /hpf (0-3) H 01/28/18 03:15 Urine Microscopic WBC 46 /hpf (0-5) H 01/28/18 03:15 Ur Squamous Epith Cells 4 /hpf (0-5) 01/28/18 03:15 Urine Bacteria Rare (<OCC) 01/28/18 03:15 Digoxin 0.8 ng/mL (0.8-2.0) 01/28/18 01:09 Blood Type O POSITIVE 01/28/18 00:45 Blood Type Confirm O POSITIVE 01/28/18 02:14 Antibody Screen Negative 01/28/18 00:45 BBK History Checked No verified bt 01/28/18 00:45 Discharge Exam - Head Exam Head Exam: NORMAL INSPECTION Discharge Plan - Follow Up Plan Condition: FAIR Disposition: HOME/ ROUTINE Instructions: Appendicitis, Adult (DC), Acute Abdomen (Belly Pain), Adult (DC) Additional Instructions: follow up with primary md 1 week Referrals: [facility] [place] [facility] [Outside] Jace Delgadillo MD [Staff Provider] - Keven Rose MD [Staff Provider] -
== END 2018-01-29 18:20 | disposition home or self-care (01) ==
LOC: H.ER 22:59 → H.ERHOLD 01-28 03:52 → H.MEDSURG1 01-28 05:32
PROVIDERS: ADMIT Internal Medicine Pulmonary Disease; ATTEND Internal Medicine Pulmonary Disease
DX: K35.80 Unspecified acute appendicitis (principal); K21.9 Gastro-esophageal reflux disease without esophagitis; K76.0 Fatty (change of) liver, not elsewhere classified; N28.1 Cyst of kidney, acquired; M81.0 Age-related osteoporosis without current pathological fracture; J44.9 Chronic obstructive pulmonary disease, unspecified; E11.9 Type 2 diabetes mellitus without complications; E03.9 Hypothyroidism, unspecified; E78.00 Pure hypercholesterolemia, unspecified; E78.5 Hyperlipidemia, unspecified; F03.90 Unspecified dementia, unspecified severity, without behavioral disturbance, psychotic disturbance, mood disturbance, and anxiety; I25.10 Atherosclerotic heart disease of native coronary artery without angina pectoris; I48.2 Chronic atrial fibrillation; Z79.01 Long term (current) use of anticoagulants; I11.0 Hypertensive heart disease with heart failure; I50.9 Heart failure, unspecified; Z72.0 Tobacco use; Z85.72 Personal history of non-Hodgkin lymphomas; Z86.73 Personal history of transient ischemic attack (TIA), and cerebral infarction without residual deficits; Z87.11 Personal history of peptic ulcer disease; Z95.0 Presence of cardiac pacemaker; Z79.82 Long term (current) use of aspirin; F41.9 Anxiety disorder, unspecified; K29.70 Gastritis, unspecified, without bleeding; M19.90 Unspecified osteoarthritis, unspecified site; Z79.84 Long term (current) use of oral hypoglycemic drugs; R30.0 Dysuria
CPT/HCPCS: 36415; 71045; 74177; 80053; 80162; 81003; 82948; 83690; 83735; 83880; 84100; 84484; 85025; 85610; 85730; 86850; 86900; 87040; 87086; 93005; 93306; 94640; 99285; G0378; J2543; J7030; Q9967

== ENCOUNTER 2018-06-30 16:27 | Inpatient (IN) | payer MEDICARE, MEDICAID ==
[2018-06-30 16:27] VITALS: PULSE 57; BMI 34.2
[2018-06-30 17:34] LABS: VENOUS BLOOD GAS BASE EXCESS 4.4 mmol/L (0.0-2.0); VENOUS BLOOD GAS PCO2 52 mmHg (40-60); VENOUS BLOOD GAS PO2 32 mm/Hg (30-55); VENOUS BLOOD PH 7.38 (7.32-7.43)
[2018-06-30 17:57] LABS: B-TYPE NATRIURETIC PEPTIDE 2420 pg/ml (0-900); BASO % 0.4 % (0.0-2.0); BLOOD UREA NITROGEN 18 mg/dl (7-17); EOS # 0.1 K/uL (0.0-0.7); EOS % 1.1 % (0.0-4.0); GFR NON-AFRICAN AMERICAN > 60; HEMOGLOBIN 12.9 g/dL (12.0-16.0); LYMPH # 2.6 K/uL (1.0-4.3); LYMPH % 38.6 % (20.0-40.0); MEAN CELL VOLUME 84.5 fl (81.0-99.0); MEAN CORPUSCULAR HEMOGLOBIN 26.6 pg (27.0-31.0); MEAN CORPUSCULAR HGB CONC 31.5 g/dL (33.0-37.0); MEAN PLATELET VOLUME 9.2 fl (7.2-11.7); MONO # 0.8 K/uL (0.0-0.8); MONO % 11.9 % (0.0-10.0); NEUT # 3.2 K/uL (1.8-7.0); RBC 4.86 Mil/uL (3.80-5.20); RED CELL DISTRIBUTION WIDTH 17.1 % (11.5-14.5); WHITE BLOOD COUNT 6.7 K/uL (4.8-10.8)
--- NOTE | 2018-06-30 18:22 | ED PDOC ---
History of Present Illness History of Present Illness: 82 year old female presents with one month of cough productive of sputum, chest pain and difficulty breathing. Patient states chest pain started today. Patient is not answering any other questions and will not provide any other information besides that she wants to call her son Camilo, whose number is [phone]. Patients son was contacted and he is aware she is here. Patients previous edith rts were reviewed. PMD: Dr. Isadora Banuelos HPI: Influenza Time Seen by Provider: 06/30/18 17:01 Chief Complaint: Cough, Cold, Congestion Chief Complaint (Provider): Cough, Cold, Congestion History Per: Patient Onset/Duration Of Symptoms: Days (x1 month) Symptoms include: cough, chest pain, difficulty breathing Past Medical History Reviewed: Historical Data, Nursing Documentation, Vital Signs Vital Signs: Last Vital Signs Temp 97.9 F 06/30/18 16:36 Pulse 60 06/30/18 16:36 Resp 18 06/30/18 16:36 BP 139/62 06/30/18 16:36 Pulse Ox 99 06/30/18 16:36 - Medical History PMH: Anxiety, Arthritis, Asthma, Atrial Fibrillation, Bipolar Disorder, CAD, Cardia Arrhythmia (a fib), CHF, COPD, Crohn's Disease, CVA, Dementia, Depression, Diabetes, Diverticulitis, Fractures (Left Hip displacement), Gastritis, Hiatal Hernia, HTN, Hypercholesterolemia, Hyperlipidemia, Hypothyroidism, Osteoporosis, Peripheral Edema Denies: HIV, Chronic Kidney Disease - Surgical History Surgical History: Appendectomy, Cholecystectomy (documented in history but patient does not acknowledge), Pacemaker, - Family History Family History: States: Unknown Family Hx - Immunization History Hx Tetanus Toxoid Vaccination: Yes Hx Influenza Vaccination: Yes Hx Pneumococcal Vaccination: Yes - Home Medications Home Medications: Ambulatory Orders Medication Instructions Recorded RX: Donepezil HCl [Aricept Odt] 1 tab PO DAILY 08/04/17 RX: Albuterol HFA [Ventolin HFA 90 2 in INH Q6 PRN #1 inhaler 08/22/17 mcg/actuation (8 g)] RX: Apixaban [Eliquis] 2.5 mg PO BID #60 tab 08/22/17 RX: Aspirin [Ecotrin] 81 mg PO DAILY #30 tabec 08/22/17 RX: Atorvastatin [Lipitor] 10 mg PO DAILY #30 tab 08/22/17 RX: Digoxin 125 mcg PO DAILY 08/22/17 RX: Docusate [Colace] 200 mg PO HS #60 cap 08/22/17 RX: Esomeprazole Magnesium [Nexium] 40 mg PO DAILY #30 ecc 08/22/17 RX: Fluticasone/Salmeterol 250/50 1 inh INH Q12 #1 dsk 08/22/17 [Advair Diskus 250/50] RX: Gabapentin 300 mg PO TID #90 capsule 08/22/17 RX: Levothyroxine [Synthroid] 100 mcg PO DAILY #30 tab 08/22/17 RX: Lipase/Protease/Amylase 2 cap PO BID #120 capsule.dr 08/22/17 [Moisés Nguyễn 3,000 Unit Capsule] RX: Losartan/Hydrochlorothiazide 1 tab PO DAILY #30 tablet 08/22/17 [Losartan-Hctz 50-12.5 mg Tab] RX: Magnesium Oxide [Magox 400] 400 mg PO DAILY #30 tablet 08/22/17 RX: Meloxicam [Mobic] 7.5 mg PO DAILY #30 tab 08/22/17 RX: Metoprolol Tartrate [Lopressor] 25 mg PO Q12 #60 tab 08/22/17 RX: Rivastigmine 9.5 mg/24 hr 1 patch TD DAILY #30 patch 08/22/17 [Exelon 9.5 mg/24 hr Patch] RX: SITagliptin [Januvia] 50 mg PO DAILY #30 tab 08/22/17 RX: Sildenafil [Revatio] 20 mg PO TID #90 tab 08/22/17 RX: Sucralfate [Carafate Oral Susp] 1 gm PO BID #1 udc 08/22/17 RX: Tolterodine [Detrol LA] 4 mg PO DAILY #30 cer 08/22/17 RX: Ibuprofen [Motrin Tab] 600 mg PO Q6 PRN #30 tab 04/20/18 Potassium Chloride [Klor-Con 10] 10 meq PO DAILY #7 tablet.er 05/08/18 RX: Furosemide [Lasix] 40 mg PO BID #60 tab 05/08/18 RX: Spironolactone [Aldactone] 25 mg PO DAILY #30 tab 05/08/18 Ondansetron [Zofran Odt] 4 mg PO Q8 PRN #10 odt 05/10/18 - Allergies Allergies/Adverse Reactions: Allergies Allergy/AdvReac Type Severity Reaction Status Date / Time No Known Allergies Allergy Verified 06/30/18 16:36 Physical Exam - Reviewed Nursing Documentation Reviewed: Yes Vital Signs Reviewed: Yes - Physical Exam Appears: Positive for: No Acute Distress Cardiovascular/Chest: Positive for: Regular Rate, Rhythm. Negative for: Murmur Respiratory: Positive for: Normal Breath Sounds. Negative for: Respiratory Distress Gastrointestinal/Abdominal: Positive for: Normal Exam, Soft. Negative for: Tenderness Extremity: Negative for: Pedal Edema, Swelling Medical Decision Making Medical Decision Making: Time: 1714 Workup for chest pain, shortness of breath and possible pneumonia --XR --Labs --EKG --Reassess patient Scribe Attestation: Documented by Kaci Richardson, acting as a scribe for Franny Arguelles MD Provider Scribe Attestation: All medical record entries made by the Scribe were at my direction and personally dictated by me. I have reviewed the chart and agree that the record accurately reflects my personal performance of the history, physical exam, medical decision making, and the department course for this patient. I have also personally directed, reviewed, and agree with the discharge instructions and disposition. Pt with CHF/Fluid overload. Given Lasix and antibiotics started. Pt to be admitted to Dr. Angulo. - Laboratory Results Result Diagrams: 06/30/18 17:28 06/30/18 17:28 - ECG O2 Sat by Pulse Oximetry: 99 (RA) Pulse Ox Interpretation: Normal Disposition - Clinical Impression Clinical Impression: Chest congestion, DM2 (diabetes mellitus, type 2), A-fib, COPD (chronic obstructive pulmonary disease) with acute bronchitis, CHF (congestive heart failure), NYHA class III - Patient ED Disposition Is Patient to be Admitted: Yes - Disposition Disposition Time: 18:20 Condition: GOOD
[2018-06-30] MEDS ORDERED: Azithromycin 500 MG in Sodium Chloride 0.9% 250 ML IVPB STA (18:47)
[2018-06-30] MEDS ORDERED: cefTRIAXone (Rocephin) 1 gm Inj ONE (19:03)
[2018-06-30] MEDS ORDERED: Azithromycin 500 MG IV IVPB ONE (20:09)
[2018-07-01] MEDS ORDERED: Albuterol-Ipratrop 3 mg / 0.5 (3 ml) UD ONE ×3 (06:34→17:40)
[2018-07-01 08:18] LABS: URINE BACTERIA RARE (<OCC); URINE BILIRUBIN NEGATIVE (NEGATIVE); URINE BLOOD NEGATIVE (NEGATIVE); URINE CLARITY CLEAR (Clear); URINE COLOR STRAW (YELLOW); URINE GLUCOSE (UA) NEG (Normal); URINE LEUKOCYTE ESTERASE SMALL Leu/uL (Negative); URINE PROTEIN NEGATIVE (NEGATIVE); URINE UROBILINOGEN 0.2-1.0 mg/dL (0.2-1.0)
[2018-07-01] MEDS ORDERED: Levothyroxine 100 MCG TAB PO STA (08:31)
--- NOTE | 2018-07-01 08:39 | CARD ---
APPROVED REPORT Date of service: 06/30/2018 EKG Measurement Heart [id number] <Conclusion> Atrial fibrillation Left axis deviation Possible Anterior infarct, age undetermined Abnormal ECG
--- NOTE | 2018-07-01 08:48 | RAD ---
Date of service: 06/30/2018 HISTORY: possible admission COMPARISON: 01/27/2018 FINDINGS: LUNGS: No active pulmonary disease. PLEURA: No significant pleural effusion identified, no pneumothorax apparent. CARDIOVASCULAR: Mild aortic atherosclerotic calcification present. Heart is enlarged. No pulmonary vascular congestion. OSSEOUS STRUCTURES: No significant abnormalities. VISUALIZED UPPER ABDOMEN: Normal. OTHER FINDINGS: None. IMPRESSION: No active disease.
[2018-07-01] MEDS: Pantoprazole 40 mg EC Tab PO SCH (09:02)
[2018-07-01] MEDS: Sildenafil 20 MG TAB PO SCH ×3 (09:52→17:48)
[2018-07-01] MEDS: Fluticasone-Salmeterol 250-50mcg Diskus IH SCH ×2 (09:57→21:24)
[2018-07-01] MEDS ORDERED: Potassium Chloride 10 mEq ER Tab PO ONE (11:03)
[2018-07-01] MEDS: Potassium Chloride 10 mEq ER Tab PO SCH (11:20)
[2018-07-01] MEDS: Albuterol-Ipratrop 3 mg / 0.5 (3 ml) UD INH PRN ×2 (13:30→17:40)
--- NOTE | 2018-07-01 23:56 | CP.PCM.HP ---
History of Present Illness - History of Present Illness History of Present Illness: CC: Cough, Chest Pain and SOB History of Present Illness: History from the Patient, son (Camilo) and chart An 82 year old female presents with H/O CHF, CAD, Hypothyroidism, Gait abnormality and Hypertension with episodes of Hypotension presented with Productive cough with clear sputum with associated with Acute chest pain 4/10 with no radiation, and difficulty breathing. Patient states chest pain started on the day of presentation to the ER. Denies fever or chills. Present on Admission - Present on Admission Any Indicators Present on Admission: Yes Review of Systems - Review of Systems All systems: reviewed and no additional remarkable complaints except Review of Systems: as per HPI Past Patient History - Infectious Disease Hx of Infectious Diseases: None - Past Medical History & Family History Past Medical History?: Yes Past Family History: Reviewed and not pertinent - Past Social History Smoking Status: Never Smoked Alcohol: None Drugs: Denies - CARDIAC Hx Atrial Fibrillation: Yes Hx Cardia Arrhythmia: Yes (a fib) Hx Congestive Heart Failure: Yes Hx Hypercholesterolemia: Yes Hx Hypertension: Yes Hx Pacemaker: Yes Hx Peripheral Edema: Yes - PULMONARY Hx Asthma: Yes Hx Chronic Obstructive Pulmonary Disease (COPD): Yes - NEUROLOGICAL Hx Dementia: Yes - HEENT Hx HEENT Problems: Yes Hx Blind: Yes (R eye) - RENAL Hx Chronic Kidney Disease: No - ENDOCRINE/METABOLIC Hx Hypothyroidism: Yes - HEMATOLOGICAL/ONCOLOGICAL Hx Human Immunodeficiency Virus (HIV): No - INTEGUMENTARY Hx Dermatological Problems: No - MUSCULOSKELETAL/RHEUMATOLOGICAL Hx Arthritis: Yes Hx Fractures: Yes (Left Hip displacement) Hx Osteoporosis: Yes - GASTROINTESTINAL Hx Crohn's Disease: Yes Hx Diverticulitis: Yes Hx Gastritis: Yes - GENITOURINARY/GYNECOLOGICAL Hx Genitourinary Disorders: Yes Hx Incontinence: Yes - PSYCHIATRIC Hx Anxiety: Yes Hx Bipolar Disorder: Yes Hx Depression: Yes - SURGICAL HISTORY Hx Appendectomy: Yes Hx Cholecystectomy: Yes (documented in history but patient does not acknowledge) - ANESTHESIA Hx Anesthesia: Yes Hx Anesthesia Reactions: No Hx Malignant Hyperthermia: No Meds Allergies/Adverse Reactions: Allergies Allergy/AdvReac Type Severity Reaction Status Date / Time No Known Allergies Allergy Verified 06/30/18 16:36 Physical Exam - Constitutional Appears: Well, No Acute Distress - Head Exam Head Exam: ATRAUMATIC, NORMAL INSPECTION, NORMOCEPHALIC - Eye Exam Eye Exam: EOMI, Normal appearance, PERRL Pupil Exam: NORMAL ACCOMODATION, PERRL - ENT Exam ENT Exam: Mucous Membranes Moist, Normal Exam - Neck Exam Neck exam: Positive for: Normal Inspection - Respiratory Exam Respiratory Exam: Rales, NORMAL BREATHING PATTERN - Cardiovascular Exam Cardiovascular Exam: REGULAR RHYTHM, +S1, +S2, Systolic Murmur - GI/Abdominal Exam GI & Abdominal Exam: Normal Bowel Sounds, Soft. absent: Tenderness - Extremities Exam Extremities exam: Positive for: normal capillary refill, normal inspection - Back Exam Back exam: NORMAL INSPECTION - Neurological Exam Neurological exam: Abnormal Gait, Alert, CN II-XII Intact, Oriented x3, Reflexes Normal - Psychiatric Exam Psychiatric exam: Normal Affect, Normal Mood - Skin Skin Exam: Dry, Intact, Normal Color, Warm Results - Vital Signs Recent Vital Signs: Last Vital Signs Temp 97.9 F 07/01/18 19:15 Pulse 70 07/01/18 19:15 Resp 18 07/01/18 19:15 BP 104/57 L 07/01/18 19:15 Pulse Ox 99 07/01/18 19:15 - Labs Result Diagrams: 06/30/18 17:28 06/30/18 17:28 Labs: Laboratory Results - last 24 hr 07/01/18 07/01/18 07:32 09:50 Urine Color Straw Urine Clarity Clear Urine pH 6.0 Ur Specific [place] 1.008 Urine Protein Negative Urine Glucose (UA) Neg Urine Ketones Negative Urine Blood Negative Urine Nitrate Negative Urine Bilirubin Negative Urine Urobilinogen 0.2-1.0 Ur Leukocyte Esterase Small Urine RBC (Auto) 1 Urine Microscopic WBC 5 Urine Bacteria Rare Digoxin 0.9 Assessment & Plan (1) Congestive heart failure Status: Acute Priority: Medium (2) Physical deconditioning Status: Acute Priority: Medium (3) Pulmonary HTN Status: Acute Priority: Medium (4) A-fib Status: Chronic Priority: Low (5) Bronchial asthma Status: Chronic Priority: Low (6) DM2 (diabetes mellitus, type 2) Status: Chronic Priority: Low (7) Hypertension Status: Chronic Priority: Low (8) Hypothyroid Status: Chronic Priority: Low (9) Pulmonary hypertension Status: Chronic Priority: Low - Assessment and Plan (Free Text) Plan: O2 via NC IV Lasix 40mg BID C/w all Home Medication Serial Trop and EKG TTE
[2018-07-02] MEDS: Levothyroxine 100 MCG TAB PO SCH ×2 (06:46→09:46)
[2018-07-02] MEDS: Sildenafil 20 MG TAB PO SCH ×3 (09:47→17:36)
[2018-07-02] MEDS: Potassium Chloride 10 mEq ER Tab PO SCH (09:54)
[2018-07-02] MEDS ORDERED: Potassium Chloride 10 mEq ER Tab PO ONE (09:54)
[2018-07-02] MEDS: Fluticasone-Salmeterol 250-50mcg Diskus IH SCH ×2 (09:55→21:49)
[2018-07-02] MEDS: Albuterol-Ipratrop 3 mg / 0.5 (3 ml) UD INH PRN (10:04)
[2018-07-02] MEDS ORDERED: Albuterol-Ipratrop 3 mg / 0.5 (3 ml) UD ONE (10:05)
[2018-07-02] MEDS ORDERED: Pantoprazole 40 mg EC Tab PO ONE (11:02)
[2018-07-02] MEDS: Pantoprazole 40 mg EC Tab PO SCH (11:04)
[2018-07-03] MEDS: Levothyroxine 100 MCG TAB PO SCH (08:36)
[2018-07-03] MEDS: Fluticasone-Salmeterol 250-50mcg Diskus IH SCH ×2 (10:26→21:58)
[2018-07-03] MEDS: Potassium Chloride 10 mEq ER Tab PO SCH (10:31)
[2018-07-03] MEDS: Pantoprazole 40 mg EC Tab PO SCH (10:35)
--- NOTE | 2018-07-03 10:40 | CP.PCM.PN ---
Subjective - Date & Time of Evaluation Date of Evaluation: 07/02/18 Time of Evaluation: 15:55 - Subjective Subjective: Seen and examined at the bed side. States feeling better. BP runs low. Metoprolol and Losartan held. Sales Performance Manager Consulted and waiting evaluation and recommendation. No chest pain or Palpitation. Objective - Vital Signs/Intake and Output Vital Signs (last 24 hours): Temp Pulse Resp BP Pulse Ox 97.8 F 55 L 20 105/71 98 07/03/18 09:22 07/03/18 09:22 07/03/18 09:22 07/03/18 09:22 07/03/18 09:22 - Medications Medications: Current Medications Albuterol/Ipratropium (Duoneb 3 Mg/0.5 Mg (3 Ml) Ud) 3 ml INH RQ4 PRN PRN Reason: Shortness of Breath Last Admin: 07/02/18 10:04 Dose: 3 ml Apixaban (Eliquis) 2.5 mg PO BID [facility]; Protocol Last Admin: 07/02/18 17:35 Dose: 2.5 mg Aspirin (Aspirin Chewable) 81 mg PO DAILY [facility] Last Admin: 07/02/18 09:54 Dose: 81 mg Atorvastatin Calcium (Lipitor) 10 mg PO DAILY [facility] Last Admin: 07/02/18 11:04 Dose: 10 mg Docusate Sodium (Colace) 200 mg PO DAILY [facility] Last Admin: 07/02/18 09:53 Dose: 200 mg Donepezil HCl (Aricept) 5 mg PO HS [facility] Last Admin: 07/02/18 21:49 Dose: 5 mg Furosemide (Lasix) 40 mg IVP DAILY [facility] Last Admin: 07/02/18 11:05 Dose: 40 mg Gabapentin (Neurontin) 300 mg PO TID [facility] Last Admin: 07/02/18 17:35 Dose: 300 mg Hydrochlorothiazide (Microzide) 12.5 mg PO DAILY [facility] Last Admin: 07/02/18 09:48 Dose: 12.5 mg Levothyroxine Sodium (Synthroid) 100 mcg PO DAILY@0630 [facility] Last Admin: 07/03/18 08:36 Dose: 100 mcg Losartan Potassium (Cozaar) 50 mg PO DAILY [facility] Last Admin: 07/01/18 10:05 Dose: Not Given Metoprolol Tartrate (Lopressor) 25 mg PO Q12 [facility] Last Admin: 07/01/18 08:57 Dose: 25 mg Ondansetron HCl (Zofran Tab) 8 mg PO Q8 PRN PRN Reason: Nausea/Vomiting Pantoprazole Sodium (Protonix Ec Tab) 40 mg PO DAILY [facility] Last Admin: 07/02/18 11:04 Dose: 40 mg Potassium Chloride (Klor-Con 10) 10 meq PO DAILY [facility] Last Admin: 07/02/18 09:54 Dose: 10 meq Rivastigmine (Exelon 9.5 Mg/24 Hr Patch) 1 patch TD DAILY [facility] Last Admin: 07/02/18 11:05 Dose: 1 patch Fluticasone/Salmeterol (Advair Diskus 250/50) 1 puff IH Q12 [facility] Last Admin: 07/02/18 21:49 Dose: 1 inhaler Sildenafil Citrate (Revatio) 20 mg PO TID [facility] Last Admin: 07/02/18 17:36 Dose: 20 mg Sitagliptin Phosphate (Januvia) 50 mg PO DAILY [facility] Last Admin: 07/02/18 09:47 Dose: 50 mg Spironolactone (Aldactone) 25 mg PO DAILY [facility] Last Admin: 07/02/18 09:48 Dose: 25 mg Tolterodine Tartrate (Detrol) 4 mg PO DAILY [facility] Last Admin: 07/02/18 09:49 Dose: 4 mg - Labs Labs: 06/30/18 17:28 06/30/18 17:28 Assessment and Plan (1) Congestive heart failure Status: Acute (2) Physical deconditioning Status: Acute (3) Pulmonary HTN Status: Acute (4) A-fib Status: Chronic (5) Bronchial asthma Status: Chronic (6) DM2 (diabetes mellitus, type 2) Status: Chronic (7) Hypertension Status: Chronic (8) Hypothyroid Status: Chronic (9) Pulmonary hypertension Status: Chronic - Assessment and Plan (Free Text) Plan: Continue Current Care. Add Midodrine if BP persistently low
[2018-07-03] MEDS: Sildenafil 20 MG TAB PO SCH ×3 (12:04→17:34)
--- NOTE | 2018-07-03 17:53 | CP.PCM.PN ---
Subjective - Date & Time of Evaluation Date of Evaluation: 07/03/18 Time of Evaluation: 17:50 - Subjective Subjective: Seen and examined at the bed side. States feeling better. BP runs low. Metoprolol and Losartan held. Sky Diver Consulted and waiting evaluation and recommendation. No chest pain or Palpitation. Objective - Vital Signs/Intake and Output Vital Signs (last 24 hours): Temp Pulse Resp BP Pulse Ox 98.3 F 65 20 102/64 100 07/03/18 16:51 07/03/18 16:51 07/03/18 16:51 07/03/18 16:51 07/03/18 16:51 - Medications Medications: Current Medications Albuterol/Ipratropium (Duoneb 3 Mg/0.5 Mg (3 Ml) Ud) 3 ml INH RQ4 PRN PRN Reason: Shortness of Breath Last Admin: 07/02/18 10:04 Dose: 3 ml Apixaban (Eliquis) 2.5 mg PO BID [facility]; Protocol Last Admin: 07/03/18 17:33 Dose: 2.5 mg Aspirin (Aspirin Chewable) 81 mg PO DAILY [facility] Last Admin: 07/03/18 10:27 Dose: 81 mg Atorvastatin Calcium (Lipitor) 10 mg PO DAILY [facility] Last Admin: 07/03/18 10:33 Dose: 10 mg Docusate Sodium (Colace) 200 mg PO DAILY [facility] Last Admin: 07/03/18 10:28 Dose: 200 mg Donepezil HCl (Aricept) 5 mg PO HS [facility] Last Admin: 07/02/18 21:49 Dose: 5 mg Furosemide (Lasix) 40 mg IVP DAILY [facility] Last Admin: 07/03/18 10:31 Dose: 40 mg Gabapentin (Neurontin) 300 mg PO TID [facility] Last Admin: 07/03/18 17:34 Dose: 300 mg Hydrochlorothiazide (Microzide) 12.5 mg PO DAILY [facility] Last Admin: 07/03/18 10:34 Dose: 12.5 mg Levothyroxine Sodium (Synthroid) 100 mcg PO DAILY@0630 [facility] Last Admin: 07/03/18 08:36 Dose: 100 mcg Losartan Potassium (Cozaar) 50 mg PO DAILY [facility] Last Admin: 07/01/18 10:05 Dose: Not Given Metoprolol Tartrate (Lopressor) 25 mg PO Q12 [facility] Last Admin: 07/01/18 08:57 Dose: 25 mg Ondansetron HCl (Zofran Tab) 8 mg PO Q8 PRN PRN Reason: Nausea/Vomiting Pantoprazole Sodium (Protonix Ec Tab) 40 mg PO DAILY [facility] Last Admin: 07/03/18 10:35 Dose: 40 mg Potassium Chloride (Klor-Con 10) 10 meq PO DAILY [facility] Last Admin: 07/03/18 10:31 Dose: 10 meq Rivastigmine (Exelon 9.5 Mg/24 Hr Patch) 1 patch TD DAILY [facility] Last Admin: 07/03/18 10:29 Dose: 1 patch Fluticasone/Salmeterol (Advair Diskus 250/50) 1 puff IH Q12 [facility] Last Admin: 07/03/18 10:26 Dose: 1 inhaler Sildenafil Citrate (Revatio) 20 mg PO TID [facility] Last Admin: 07/03/18 17:34 Dose: 20 mg Sitagliptin Phosphate (Januvia) 50 mg PO DAILY [facility] Last Admin: 07/03/18 12:15 Dose: Not Given Spironolactone (Aldactone) 25 mg PO DAILY [facility] Last Admin: 07/03/18 10:27 Dose: 25 mg Tolterodine Tartrate (Detrol) 4 mg PO DAILY [facility] Last Admin: 07/03/18 10:28 Dose: 4 mg - Labs Labs: 06/30/18 17:28 06/30/18 17:28 Assessment and Plan (1) Congestive heart failure Status: Acute (2) Physical deconditioning Status: Acute (3) Pulmonary HTN Status: Acute (4) A-fib Status: Chronic (5) Bronchial asthma Status: Chronic (6) DM2 (diabetes mellitus, type 2) Status: Chronic (7) Hypertension Status: Chronic (8) Hypothyroid Status: Chronic (9) Pulmonary hypertension Status: Chronic - Assessment and Plan (Free Text) Plan: Continue Current Care PT/OT evaluation
[2018-07-04] MEDS: Levothyroxine 100 MCG TAB PO SCH (07:08)
[2018-07-04] MEDS: Fluticasone-Salmeterol 250-50mcg Diskus IH SCH ×2 (08:47→21:36)
[2018-07-04] MEDS: Pantoprazole 40 mg EC Tab PO SCH (08:55)
[2018-07-04] MEDS: Sildenafil 20 MG TAB PO SCH ×3 (08:55→16:32)
[2018-07-04] MEDS: Potassium Chloride 10 mEq ER Tab PO SCH (10:08)
[2018-07-04 11:01] LABS: HEMOGLOBIN 14.4 g/dL (12.0-16.0); MEAN CELL VOLUME 85.7 fl (81.0-99.0); MEAN CORPUSCULAR HEMOGLOBIN 26.9 pg (27.0-31.0); MEAN CORPUSCULAR HGB CONC 31.4 g/dL (33.0-37.0); RBC 5.33 Mil/uL (3.80-5.20); RED CELL DISTRIBUTION WIDTH 16.6 % (11.5-14.5)
[2018-07-04 11:20] LABS: BLOOD UREA NITROGEN 26 mg/dl (7-17); CALCIUM 9.4 mg/dL (8.4-10.2); GFR NON-AFRICAN AMERICAN > 60
[2018-07-04 11:28] LABS: B-TYPE NATRIURETIC PEPTIDE 1400 pg/ml (0-900)
[2018-07-04] MEDS ORDERED: Potassium Chloride 20 mEq/15 ml LIQ UD PO ONE (11:37)
[2018-07-04] MEDS ORDERED: Potassium Chloride 20 mEq ER Tab PO ONE (11:49)
[2018-07-05] MEDS: Levothyroxine 100 MCG TAB PO SCH (06:57)
[2018-07-05] MEDS: Pantoprazole 40 mg EC Tab PO SCH (08:42)
[2018-07-05] MEDS: Fluticasone-Salmeterol 250-50mcg Diskus IH SCH ×2 (08:42→21:10)
[2018-07-05] MEDS: Sildenafil 20 MG TAB PO SCH ×3 (08:46→17:17)
[2018-07-05] MEDS: Potassium Chloride 10 mEq ER Tab PO SCH (08:47)
[2018-07-05] MEDS: Albuterol-Ipratrop 3 mg / 0.5 (3 ml) UD INH PRN ×3 (09:34→19:59)
--- NOTE | 2018-07-05 20:26 | PQF ---
PROVIDER RESPONSE TEXT: Cannot Determine Type, No Exacerbation REVIEWER QUERY TEXT: Asthma Specificity and Type Bronchial Asthma is documented in the Medical Record. Please specify the type of asthma and please c larify if there is an exacerbation or Asthma stable. Such as: -- Mild intermittent -- Mild persistent -- Moderate persistent -- Severe persistent -- Exercise induced bronchospasm -- Cough variant asthma -- Other, please specify Such as: -- Acute exacerbation -- Status asthmaticus -- Chronic --Other please clarify The patient's Clinical Indicators include: Patient presented with productive cough with clear sputum and associated with acute chest pain 4/10 with no radiation, and difficulty breathing. Medication: Advair Fina arnett prn Query created by: Shari Hall on 07/03/2018 2:02 PM Electronically signed by: Manjit Angulo MD 07/05/2018 8:24 PM
--- NOTE | 2018-07-05 20:29 | CP.PCM.PN ---
Subjective - Date & Time of Evaluation Date of Evaluation: 07/05/18 Time of Evaluation: 18:45 - Subjective Subjective: Seen and examined at the bed side. No new complaint. Unable to ambulate due to pain and weakness. Patient will need RADHA as patient unable to walk. No chest pain, and dyspnea has resolve. Objective - Vital Signs/Intake and Output Vital Signs (last 24 hours): Temp Pulse Resp BP Pulse Ox 99.3 F 77 20 107/70 99 07/05/18 19:51 07/05/18 19:51 07/05/18 19:51 07/05/18 19:51 07/05/18 19:51 - Medications Medications: Current Medications Acetaminophen (Tylenol 325mg Tab) 650 mg PO Q4 PRN PRN Reason: Pain, Mild (1-3) Last Admin: 07/05/18 13:38 Dose: 650 mg Albuterol/Ipratropium (Duoneb 3 Mg/0.5 Mg (3 Ml) Ud) 3 ml INH RQ4 PRN PRN Reason: Shortness of Breath Last Admin: 07/05/18 19:59 Dose: 3 ml Apixaban (Eliquis) 2.5 mg PO BID [facility]; Protocol Last Admin: 07/05/18 17:17 Dose: 2.5 mg Aspirin (Aspirin Chewable) 81 mg PO DAILY [facility] Last Admin: 07/05/18 08:43 Dose: 81 mg Atorvastatin Calcium (Lipitor) 10 mg PO DAILY [facility] Last Admin: 07/05/18 08:45 Dose: 10 mg Docusate Sodium (Colace) 200 mg PO DAILY [facility] Last Admin: 07/05/18 08:44 Dose: 200 mg Donepezil HCl (Aricept) 5 mg PO HS [facility] Last Admin: 07/04/18 21:38 Dose: 5 mg Furosemide (Lasix) 40 mg IVP DAILY [facility] Last Admin: 07/05/18 08:45 Dose: Not Given Gabapentin (Neurontin) 300 mg PO TID [facility] Last Admin: 07/05/18 17:17 Dose: 300 mg Hydrochlorothiazide (Microzide) 12.5 mg PO DAILY [facility] Last Admin: 07/05/18 08:45 Dose: 12.5 mg Levothyroxine Sodium (Synthroid) 100 mcg PO DAILY@0630 [facility] Last Admin: 07/05/18 06:57 Dose: 100 mcg Losartan Potassium (Cozaar) 50 mg PO DAILY [facility] Last Admin: 07/01/18 10:05 Dose: Not Given Metoprolol Tartrate (Lopressor) 25 mg PO Q12 [facility] Last Admin: 07/01/18 08:57 Dose: 25 mg Ondansetron HCl (Zofran Tab) 8 mg PO Q8 PRN PRN Reason: Nausea/Vomiting Pantoprazole Sodium (Protonix Ec Tab) 40 mg PO DAILY [facility] Last Admin: 07/05/18 08:42 Dose: 40 mg Potassium Chloride (Klor-Con 10) 10 meq PO DAILY [facility] Last Admin: 07/05/18 08:47 Dose: 10 meq Rivastigmine (Exelon 9.5 Mg/24 Hr Patch) 1 patch TD DAILY [facility] Last Admin: 07/05/18 08:42 Dose: 1 patch Fluticasone/Salmeterol (Advair Diskus 250/50) 1 puff IH Q12 [facility] Last Admin: 07/05/18 08:42 Dose: 1 inhaler Sildenafil Citrate (Revatio) 20 mg PO TID [facility] Last Admin: 07/05/18 17:17 Dose: 20 mg Sitagliptin Phosphate (Januvia) 50 mg PO DAILY [facility] Last Admin: 07/05/18 08:42 Dose: 50 mg Spironolactone (Aldactone) 25 mg PO DAILY [facility] Last Admin: 07/05/18 08:43 Dose: 25 mg Tolterodine Tartrate (Detrol) 4 mg PO DAILY [facility] Last Admin: 07/05/18 08:44 Dose: 4 mg - Labs Labs: 07/04/18 09:32 07/04/18 09:32 Assessment and Plan (1) Congestive heart failure Status: Acute (2) Physical deconditioning Status: Acute (3) Pulmonary HTN Status: Acute (4) A-fib Status: Chronic (5) Bronchial asthma Status: Chronic (6) DM2 (diabetes mellitus, type 2) Status: Chronic (7) Hypertension Status: Chronic (8) Hypothyroid Status: Chronic (9) Pulmonary hypertension Status: Chronic - Assessment and Plan (Free Text) Plan: Continue current care.
--- NOTE | 2018-07-05 20:29 | CP.PCM.PN ---
Subjective - Date & Time of Evaluation Date of Evaluation: 07/04/18 Time of Evaluation: 19:10 - Subjective Subjective: Seen and examined at the bed side. States feeling better. BP runs low. Stain Remover Consulted and waiting evaluation and recommendation. No chest pain or Palpitation. Objective - Vital Signs/Intake and Output Vital Signs (last 24 hours): Temp Pulse Resp BP Pulse Ox 99.3 F 77 20 107/70 99 07/05/18 19:51 07/05/18 19:51 07/05/18 19:51 07/05/18 19:51 07/05/18 19:51 - Medications Medications: Current Medications Acetaminophen (Tylenol 325mg Tab) 650 mg PO Q4 PRN PRN Reason: Pain, Mild (1-3) Last Admin: 07/05/18 13:38 Dose: 650 mg Albuterol/Ipratropium (Duoneb 3 Mg/0.5 Mg (3 Ml) Ud) 3 ml INH RQ4 PRN PRN Reason: Shortness of Breath Last Admin: 07/05/18 19:59 Dose: 3 ml Apixaban (Eliquis) 2.5 mg PO BID [facility]; Protocol Last Admin: 07/05/18 17:17 Dose: 2.5 mg Aspirin (Aspirin Chewable) 81 mg PO DAILY [facility] Last Admin: 07/05/18 08:43 Dose: 81 mg Atorvastatin Calcium (Lipitor) 10 mg PO DAILY [facility] Last Admin: 07/05/18 08:45 Dose: 10 mg Docusate Sodium (Colace) 200 mg PO DAILY [facility] Last Admin: 07/05/18 08:44 Dose: 200 mg Donepezil HCl (Aricept) 5 mg PO HS [facility] Last Admin: 07/04/18 21:38 Dose: 5 mg Furosemide (Lasix) 40 mg IVP DAILY [facility] Last Admin: 07/05/18 08:45 Dose: Not Given Gabapentin (Neurontin) 300 mg PO TID [facility] Last Admin: 07/05/18 17:17 Dose: 300 mg Hydrochlorothiazide (Microzide) 12.5 mg PO DAILY [facility] Last Admin: 07/05/18 08:45 Dose: 12.5 mg Levothyroxine Sodium (Synthroid) 100 mcg PO DAILY@0630 [facility] Last Admin: 07/05/18 06:57 Dose: 100 mcg Losartan Potassium (Cozaar) 50 mg PO DAILY [facility] Last Admin: 07/01/18 10:05 Dose: Not Given Metoprolol Tartrate (Lopressor) 25 mg PO Q12 [facility] Last Admin: 07/01/18 08:57 Dose: 25 mg Ondansetron HCl (Zofran Tab) 8 mg PO Q8 PRN PRN Reason: Nausea/Vomiting Pantoprazole Sodium (Protonix Ec Tab) 40 mg PO DAILY [facility] Last Admin: 07/05/18 08:42 Dose: 40 mg Potassium Chloride (Klor-Con 10) 10 meq PO DAILY [facility] Last Admin: 07/05/18 08:47 Dose: 10 meq Rivastigmine (Exelon 9.5 Mg/24 Hr Patch) 1 patch TD DAILY [facility] Last Admin: 07/05/18 08:42 Dose: 1 patch Fluticasone/Salmeterol (Advair Diskus 250/50) 1 puff IH Q12 [facility] Last Admin: 07/05/18 08:42 Dose: 1 inhaler Sildenafil Citrate (Revatio) 20 mg PO TID [facility] Last Admin: 07/05/18 17:17 Dose: 20 mg Sitagliptin Phosphate (Januvia) 50 mg PO DAILY [facility] Last Admin: 07/05/18 08:42 Dose: 50 mg Spironolactone (Aldactone) 25 mg PO DAILY [facility] Last Admin: 07/05/18 08:43 Dose: 25 mg Tolterodine Tartrate (Detrol) 4 mg PO DAILY [facility] Last Admin: 07/05/18 08:44 Dose: 4 mg - Labs Labs: 07/04/18 09:32 07/04/18 09:32 Assessment and Plan (1) Congestive heart failure Status: Acute (2) Physical deconditioning Status: Acute (3) Pulmonary HTN Status: Acute (4) A-fib Status: Chronic (5) Bronchial asthma Status: Chronic (6) DM2 (diabetes mellitus, type 2) Status: Chronic (7) Hypertension Status: Chronic (8) Hypothyroid Status: Chronic (9) Pulmonary hypertension Status: Chronic - Assessment and Plan (Free Text) Plan: Continue Current Care
[2018-07-06] MEDS: Levothyroxine 100 MCG TAB PO SCH (06:39)
[2018-07-06] MEDS: Fluticasone-Salmeterol 250-50mcg Diskus IH SCH ×2 (08:47→22:02)
[2018-07-06] MEDS: Pantoprazole 40 mg EC Tab PO SCH (08:55)
[2018-07-06] MEDS: Sildenafil 20 MG TAB PO SCH ×4 (08:56→16:10)
[2018-07-06] MEDS: Potassium Chloride 10 mEq ER Tab PO SCH (10:27)
[2018-07-06] MEDS: Albuterol-Ipratrop 3 mg / 0.5 (3 ml) UD INH PRN ×2 (10:49→16:21)
--- NOTE | 2018-07-06 19:06 | CARD ---
APPROVED REPORT Date of service: 07/06/2018 EKG Measurement Heart [id number] <Conclusion> Atrial fibrillation Left anterior fascicular block Abnormal ECG
[2018-07-07] MEDS: Levothyroxine 100 MCG TAB PO SCH (06:34)
[2018-07-07] MEDS: Fluticasone-Salmeterol 250-50mcg Diskus IH SCH ×2 (08:47→22:06)
[2018-07-07] MEDS: Potassium Chloride 10 mEq ER Tab PO SCH (08:50)
[2018-07-07] MEDS: Sildenafil 20 MG TAB PO SCH ×3 (08:52→16:53)
[2018-07-07] MEDS: Pantoprazole 40 mg EC Tab PO SCH (08:52)
[2018-07-08] MEDS: Levothyroxine 100 MCG TAB PO SCH (06:32)
[2018-07-08] MEDS: Fluticasone-Salmeterol 250-50mcg Diskus IH SCH ×2 (09:06→21:43)
[2018-07-08] MEDS: Sildenafil 20 MG TAB PO SCH ×3 (09:08→16:03)
[2018-07-08] MEDS: Pantoprazole 40 mg EC Tab PO SCH (09:08)
[2018-07-08] MEDS: Potassium Chloride 10 mEq ER Tab PO SCH (09:10)
[2018-07-08] MEDS: Albuterol-Ipratrop 3 mg / 0.5 (3 ml) UD INH PRN ×2 (19:36→23:24)
--- NOTE | 2018-07-08 20:52 | CP.PCM.PN ---
Subjective - Date & Time of Evaluation Date of Evaluation: 07/06/18 Time of Evaluation: 18:00 - Subjective Subjective: Seen and examined at the bed side. No new complaint. Unable to ambulate due to pain and weakness. Patient will need RADHA as patient unable to walk. No chest pain, and dyspnea has resolve. Objective - Vital Signs/Intake and Output Vital Signs (last 24 hours): Temp Pulse Resp BP Pulse Ox 98.2 F 73 20 111/67 97 07/08/18 19:55 07/08/18 19:55 07/08/18 19:55 07/08/18 19:55 07/08/18 19:55 - Medications Medications: Current Medications Acetaminophen (Tylenol 325mg Tab) 650 mg PO Q4 PRN PRN Reason: Pain, Mild (1-3) Last Admin: 07/06/18 15:58 Dose: 650 mg Albuterol/Ipratropium (Duoneb 3 Mg/0.5 Mg (3 Ml) Ud) 3 ml INH RQ4 PRN PRN Reason: Shortness of Breath Last Admin: 07/08/18 19:36 Dose: 3 ml Aspirin (Aspirin Chewable) 81 mg PO DAILY [facility] Last Admin: 07/08/18 09:10 Dose: 81 mg Atorvastatin Calcium (Lipitor) 10 mg PO DAILY [facility] Last Admin: 07/08/18 09:07 Dose: 10 mg Docusate Sodium (Colace) 200 mg PO DAILY [facility] Last Admin: 07/08/18 09:09 Dose: 200 mg Donepezil HCl (Aricept) 5 mg PO HS [facility] Last Admin: 07/07/18 22:06 Dose: 5 mg Furosemide (Lasix) 40 mg IVP DAILY [facility] Last Admin: 07/08/18 09:08 Dose: 40 mg Gabapentin (Neurontin) 300 mg PO TID [facility] Last Admin: 07/08/18 16:03 Dose: 300 mg Hydrochlorothiazide (Microzide) 12.5 mg PO DAILY [facility] Last Admin: 07/08/18 09:07 Dose: 12.5 mg Levothyroxine Sodium (Synthroid) 100 mcg PO DAILY@0630 [facility] Last Admin: 07/08/18 06:32 Dose: 100 mcg Losartan Potassium (Cozaar) 50 mg PO DAILY [facility] Last Admin: 07/01/18 10:05 Dose: Not Given Metoprolol Tartrate (Lopressor) 25 mg PO Q12 [facility] Last Admin: 07/01/18 08:57 Dose: 25 mg Ondansetron HCl (Zofran Tab) 8 mg PO Q8 PRN PRN Reason: Nausea/Vomiting Pantoprazole Sodium (Protonix Ec Tab) 40 mg PO DAILY [facility] Last Admin: 07/08/18 09:08 Dose: 40 mg Potassium Chloride (Klor-Con 10) 10 meq PO DAILY [facility] Last Admin: 07/08/18 09:10 Dose: 10 meq Rivastigmine (Exelon 9.5 Mg/24 Hr Patch) 1 patch TD DAILY [facility] Last Admin: 07/08/18 09:08 Dose: 1 patch Fluticasone/Salmeterol (Advair Diskus 250/50) 1 puff IH Q12 [facility] Last Admin: 07/08/18 09:06 Dose: 1 puff Sildenafil Citrate (Revatio) 20 mg PO TID [facility] Last Admin: 07/08/18 16:03 Dose: 20 mg Sitagliptin Phosphate (Januvia) 50 mg PO DAILY [facility] Last Admin: 07/08/18 09:11 Dose: Not Given Spironolactone (Aldactone) 25 mg PO DAILY [facility] Last Admin: 07/08/18 09:07 Dose: 25 mg Tolterodine Tartrate (Detrol) 4 mg PO DAILY [facility] Last Admin: 07/08/18 09:09 Dose: 4 mg - Labs Labs: 07/04/18 09:32 07/04/18 09:32 Assessment and Plan (1) Congestive heart failure Status: Acute (2) Physical deconditioning Status: Acute (3) Pulmonary HTN Status: Acute (4) A-fib Status: Chronic (5) Bronchial asthma Status: Chronic (6) DM2 (diabetes mellitus, type 2) Status: Chronic (7) Hypertension Status: Chronic (8) Hypothyroid Status: Chronic (9) Pulmonary hypertension Status: Chronic - Assessment and Plan (Free Text) Plan: Physical Therapy daily
--- NOTE | 2018-07-08 20:53 | CP.PCM.PN ---
Subjective - Date & Time of Evaluation Date of Evaluation: 07/08/18 Time of Evaluation: 17:30 - Subjective Subjective: Seen and examined at the bed side. No new complaint. Unable to ambulate due to pain and weakness. Patient will need RADHA as patient unable to walk. No chest pain, and dyspnea has resolve. Objective - Vital Signs/Intake and Output Vital Signs (last 24 hours): Temp Pulse Resp BP Pulse Ox 98.2 F 73 20 111/67 97 07/08/18 19:55 07/08/18 19:55 07/08/18 19:55 07/08/18 19:55 07/08/18 19:55 - Medications Medications: Current Medications Acetaminophen (Tylenol 325mg Tab) 650 mg PO Q4 PRN PRN Reason: Pain, Mild (1-3) Last Admin: 07/06/18 15:58 Dose: 650 mg Albuterol/Ipratropium (Duoneb 3 Mg/0.5 Mg (3 Ml) Ud) 3 ml INH RQ4 PRN PRN Reason: Shortness of Breath Last Admin: 07/08/18 19:36 Dose: 3 ml Aspirin (Aspirin Chewable) 81 mg PO DAILY [facility] Last Admin: 07/08/18 09:10 Dose: 81 mg Atorvastatin Calcium (Lipitor) 10 mg PO DAILY [facility] Last Admin: 07/08/18 09:07 Dose: 10 mg Docusate Sodium (Colace) 200 mg PO DAILY [facility] Last Admin: 07/08/18 09:09 Dose: 200 mg Donepezil HCl (Aricept) 5 mg PO HS [facility] Last Admin: 07/07/18 22:06 Dose: 5 mg Furosemide (Lasix) 40 mg IVP DAILY [facility] Last Admin: 07/08/18 09:08 Dose: 40 mg Gabapentin (Neurontin) 300 mg PO TID [facility] Last Admin: 07/08/18 16:03 Dose: 300 mg Hydrochlorothiazide (Microzide) 12.5 mg PO DAILY [facility] Last Admin: 07/08/18 09:07 Dose: 12.5 mg Levothyroxine Sodium (Synthroid) 100 mcg PO DAILY@0630 [facility] Last Admin: 07/08/18 06:32 Dose: 100 mcg Losartan Potassium (Cozaar) 50 mg PO DAILY [facility] Last Admin: 07/01/18 10:05 Dose: Not Given Metoprolol Tartrate (Lopressor) 25 mg PO Q12 [facility] Last Admin: 07/01/18 08:57 Dose: 25 mg Ondansetron HCl (Zofran Tab) 8 mg PO Q8 PRN PRN Reason: Nausea/Vomiting Pantoprazole Sodium (Protonix Ec Tab) 40 mg PO DAILY [facility] Last Admin: 07/08/18 09:08 Dose: 40 mg Potassium Chloride (Klor-Con 10) 10 meq PO DAILY [facility] Last Admin: 07/08/18 09:10 Dose: 10 meq Rivastigmine (Exelon 9.5 Mg/24 Hr Patch) 1 patch TD DAILY [facility] Last Admin: 07/08/18 09:08 Dose: 1 patch Fluticasone/Salmeterol (Advair Diskus 250/50) 1 puff IH Q12 [facility] Last Admin: 07/08/18 09:06 Dose: 1 puff Sildenafil Citrate (Revatio) 20 mg PO TID [facility] Last Admin: 07/08/18 16:03 Dose: 20 mg Sitagliptin Phosphate (Januvia) 50 mg PO DAILY [facility] Last Admin: 07/08/18 09:11 Dose: Not Given Spironolactone (Aldactone) 25 mg PO DAILY [facility] Last Admin: 07/08/18 09:07 Dose: 25 mg Tolterodine Tartrate (Detrol) 4 mg PO DAILY [facility] Last Admin: 07/08/18 09:09 Dose: 4 mg - Labs Labs: 07/04/18 09:32 07/04/18 09:32 Assessment and Plan (1) Congestive heart failure Status: Acute (2) Physical deconditioning Status: Acute (3) Pulmonary HTN Status: Acute (4) A-fib Status: Chronic (5) Bronchial asthma Status: Chronic (6) DM2 (diabetes mellitus, type 2) Status: Chronic (7) Hypertension Status: Chronic (8) Hypothyroid Status: Chronic (9) Pulmonary hypertension Status: Chronic - Assessment and Plan (Free Text) Plan: Continue Current Care
--- NOTE | 2018-07-08 20:53 | CP.PCM.PN ---
Subjective - Date & Time of Evaluation Date of Evaluation: 07/07/18 Time of Evaluation: 18:30 - Subjective Subjective: Seen and examined at the bed side. No new complaint. Unable to ambulate due to pain and weakness. PT recommended D/c home on home services. No chest pain, and dyspnea has resolve. Objective - Vital Signs/Intake and Output Vital Signs (last 24 hours): Temp Pulse Resp BP Pulse Ox 98.2 F 73 20 111/67 97 07/08/18 19:55 07/08/18 19:55 07/08/18 19:55 07/08/18 19:55 07/08/18 19:55 - Medications Medications: Current Medications Acetaminophen (Tylenol 325mg Tab) 650 mg PO Q4 PRN PRN Reason: Pain, Mild (1-3) Last Admin: 07/06/18 15:58 Dose: 650 mg Albuterol/Ipratropium (Duoneb 3 Mg/0.5 Mg (3 Ml) Ud) 3 ml INH RQ4 PRN PRN Reason: Shortness of Breath Last Admin: 07/08/18 19:36 Dose: 3 ml Aspirin (Aspirin Chewable) 81 mg PO DAILY [facility] Last Admin: 07/08/18 09:10 Dose: 81 mg Atorvastatin Calcium (Lipitor) 10 mg PO DAILY [facility] Last Admin: 07/08/18 09:07 Dose: 10 mg Docusate Sodium (Colace) 200 mg PO DAILY [facility] Last Admin: 07/08/18 09:09 Dose: 200 mg Donepezil HCl (Aricept) 5 mg PO HS [facility] Last Admin: 07/07/18 22:06 Dose: 5 mg Furosemide (Lasix) 40 mg IVP DAILY [facility] Last Admin: 07/08/18 09:08 Dose: 40 mg Gabapentin (Neurontin) 300 mg PO TID [facility] Last Admin: 07/08/18 16:03 Dose: 300 mg Hydrochlorothiazide (Microzide) 12.5 mg PO DAILY [facility] Last Admin: 07/08/18 09:07 Dose: 12.5 mg Levothyroxine Sodium (Synthroid) 100 mcg PO DAILY@0630 [facility] Last Admin: 07/08/18 06:32 Dose: 100 mcg Losartan Potassium (Cozaar) 50 mg PO DAILY [facility] Last Admin: 07/01/18 10:05 Dose: Not Given Metoprolol Tartrate (Lopressor) 25 mg PO Q12 [facility] Last Admin: 07/01/18 08:57 Dose: 25 mg Ondansetron HCl (Zofran Tab) 8 mg PO Q8 PRN PRN Reason: Nausea/Vomiting Pantoprazole Sodium (Protonix Ec Tab) 40 mg PO DAILY [facility] Last Admin: 07/08/18 09:08 Dose: 40 mg Potassium Chloride (Klor-Con 10) 10 meq PO DAILY [facility] Last Admin: 07/08/18 09:10 Dose: 10 meq Rivastigmine (Exelon 9.5 Mg/24 Hr Patch) 1 patch TD DAILY [facility] Last Admin: 07/08/18 09:08 Dose: 1 patch Fluticasone/Salmeterol (Advair Diskus 250/50) 1 puff IH Q12 [facility] Last Admin: 07/08/18 09:06 Dose: 1 puff Sildenafil Citrate (Revatio) 20 mg PO TID [facility] Last Admin: 07/08/18 16:03 Dose: 20 mg Sitagliptin Phosphate (Januvia) 50 mg PO DAILY [facility] Last Admin: 07/08/18 09:11 Dose: Not Given Spironolactone (Aldactone) 25 mg PO DAILY [facility] Last Admin: 07/08/18 09:07 Dose: 25 mg Tolterodine Tartrate (Detrol) 4 mg PO DAILY [facility] Last Admin: 07/08/18 09:09 Dose: 4 mg - Labs Labs: 07/04/18 09:32 07/04/18 09:32 Assessment and Plan (1) Congestive heart failure Status: Acute (2) Physical deconditioning Status: Acute (3) Pulmonary HTN Status: Acute (4) A-fib Status: Chronic (5) Bronchial asthma Status: Chronic (6) DM2 (diabetes mellitus, type 2) Status: Chronic (7) Hypertension Status: Chronic (8) Hypothyroid Status: Chronic (9) Pulmonary hypertension Status: Chronic - Assessment and Plan (Free Text) Plan: Continue current Care
[2018-07-09 05:07] VITALS: O2SAT 100
[2018-07-09] MEDS: Levothyroxine 100 MCG TAB PO SCH (06:10)
[2018-07-09 08:02] VITALS: BP 96/60; PULSE 65; RESP 20; TEMP 97.9
[2018-07-09] MEDS: Pantoprazole 40 mg EC Tab PO SCH (09:13)
[2018-07-09] MEDS: Fluticasone-Salmeterol 250-50mcg Diskus IH SCH (09:14)
[2018-07-09] MEDS: Sildenafil 20 MG TAB PO SCH ×2 (09:19→13:44)
[2018-07-09 09:56] LABS: HEMOGLOBIN 13.7 g/dL (12.0-16.0); MEAN CELL VOLUME 85.9 fl (81.0-99.0); MEAN CORPUSCULAR HEMOGLOBIN 26.8 pg (27.0-31.0); MEAN CORPUSCULAR HGB CONC 31.2 g/dL (33.0-37.0); RBC 5.12 Mil/uL (3.80-5.20); RED CELL DISTRIBUTION WIDTH 15.9 % (11.5-14.5); WHITE BLOOD COUNT 6.1 K/uL (4.8-10.8)
[2018-07-09] MEDS: Potassium Chloride 10 mEq ER Tab PO SCH (10:01)
[2018-07-09 10:15] LABS: ALB/GLOB RATIO 1.3 (1.0-2.1); ALT/SGPT 40 U/L (9-52); AST/SGOT 44 U/L (14-36); BLOOD UREA NITROGEN 26 mg/dl (7-17); CALCIUM 9.5 mg/dL (8.4-10.2); GFR NON-AFRICAN AMERICAN > 60
--- NOTE | 2018-07-09 10:26 | CP.PCM.CON ---
History of Present Illness - History of Present Illness History of Present Illness: Consultation for CHF exacerbation HPI: 82 year old female who has been followed by for the last 5 years admitted with acute decompensated CHF exacerbation 2' to dietary non-compliance. Does have pulmonary HTN for which she has been maintained on sildenafil. Review of Systems - Review of Systems Systems not reviewed;Unavailable: Acuity of Condition - Constitutional Constitutional: As Per HPI - EENT Eyes: As Per HPI Ears: As Per HPI Nose/Mouth/Throat: As Per HPI - Breasts Breasts: As Per HPI - Cardiovascular Cardiovascular: As Per HPI - Respiratory Respiratory: As Per HPI - Gastrointestinal Gastrointestinal: As Per HPI - Genitourinary Genitourinary: As Per HPI - Reproductive: Female Reproductive:Female: As Per HPI - Menstruation Menstruation: As Per HPI - Musculoskeletal Musculoskeletal: As Per HPI - Integumentary Integumentary: As Per HPI - Neurological Neurological: As Per HPI - Psychiatric Psychiatric: As Per HPI - Endocrine Endocrine: As Per HPI - Hematologic/Lymphatic Hematologic: As Per HPI Past Patient History - Infectious Disease Hx of Infectious Diseases: None - Past Medical History & Family History Past Medical History?: Yes Past Family History: Reviewed and not pertinent - Past Social History Smoking Status: Never Smoked Alcohol: None Drugs: Denies - CARDIAC Hx Atrial Fibrillation: Yes Hx Cardia Arrhythmia: Yes (a fib) Hx Congestive Heart Failure: Yes Hx Hypercholesterolemia: Yes Hx Hypertension: Yes Hx Pacemaker: Yes Hx Peripheral Edema: Yes - PULMONARY Hx Asthma: Yes Hx Chronic Obstructive Pulmonary Disease (COPD): Yes - NEUROLOGICAL Hx Dementia: Yes - HEENT Hx HEENT Problems: Yes Hx Blind: Yes (R eye) - RENAL Hx Chronic Kidney Disease: No - ENDOCRINE/METABOLIC Hx Hypothyroidism: Yes - HEMATOLOGICAL/ONCOLOGICAL Hx Human Immunodeficiency Virus (HIV): No - INTEGUMENTARY Hx Dermatological Problems: No - MUSCULOSKELETAL/RHEUMATOLOGICAL Hx Arthritis: Yes Hx Fractures: Yes (Left Hip displacement) Hx Osteoporosis: Yes - GASTROINTESTINAL Hx Crohn's Disease: Yes Hx Diverticulitis: Yes Hx Gastritis: Yes - GENITOURINARY/GYNECOLOGICAL Hx Genitourinary Disorders: Yes Hx Incontinence: Yes - PSYCHIATRIC Hx Anxiety: Yes Hx Bipolar Disorder: Yes Hx Depression: Yes - SURGICAL HISTORY Hx Appendectomy: Yes Hx Cholecystectomy: Yes (documented in history but patient does not acknowledge) - ANESTHESIA Hx Anesthesia: Yes Hx Anesthesia Reactions: No Hx Malignant Hyperthermia: No Meds Home Medications: Home Medication List Medication Instructions Recorded Confirmed Type Atorvastatin [Lipitor] 10 mg PO DAILY #30 tab 07/06/18 Rx Ondansetron [Zofran Tab] 8 mg PO Q8 PRN #10 tab 07/06/18 Rx Pantoprazole [Protonix EC Tab] 40 mg PO DAILY #30 ect 07/06/18 Rx Spironolactone [Aldactone] 25 mg PO DAILY #30 tab 07/06/18 Rx Allergies/Adverse Reactions: Allergies Allergy/AdvReac Type Severity Reaction Status Date / Time No Known Allergies Allergy Verified 06/30/18 16:36 - Medications Medications: Current Medications Acetaminophen (Tylenol 325mg Tab) 650 mg PO Q4 PRN PRN Reason: Pain, Mild (1-3) Last Admin: 07/06/18 15:58 Dose: 650 mg Albuterol/Ipratropium (Duoneb 3 Mg/0.5 Mg (3 Ml) Ud) 3 ml INH RQ4 PRN PRN Reason: Shortness of Breath Last Admin: 07/08/18 23:24 Dose: 3 ml Apixaban (Eliquis) 2.5 mg PO BID [facility]; Protocol Last Admin: 07/09/18 10:01 Dose: 2.5 mg Aspirin (Aspirin Chewable) 81 mg PO DAILY [facility] Last Admin: 07/09/18 09:14 Dose: 81 mg Atorvastatin Calcium (Lipitor) 10 mg PO DAILY [facility] Last Admin: 07/09/18 09:13 Dose: 10 mg Docusate Sodium (Colace) 200 mg PO DAILY [facility] Last Admin: 07/09/18 09:14 Dose: 200 mg Donepezil HCl (Aricept) 5 mg PO HS [facility] Last Admin: 07/08/18 21:43 Dose: 5 mg Furosemide (Lasix) 40 mg IVP DAILY [facility] Last Admin: 07/09/18 09:27 Dose: Not Given Gabapentin (Neurontin) 300 mg PO TID [facility] Last Admin: 07/09/18 09:13 Dose: 300 mg Hydrochlorothiazide (Microzide) 12.5 mg PO DAILY [facility] Last Admin: 07/09/18 09:27 Dose: Not Given Levothyroxine Sodium (Synthroid) 100 mcg PO DAILY@0630 [facility] Last Admin: 07/09/18 06:10 Dose: 100 mcg Losartan Potassium (Cozaar) 50 mg PO DAILY [facility] Last Admin: 07/01/18 10:05 Dose: Not Given Metoprolol Tartrate (Lopressor) 25 mg PO Q12 [facility] Last Admin: 07/01/18 08:57 Dose: 25 mg Ondansetron HCl (Zofran Tab) 8 mg PO Q8 PRN PRN Reason: Nausea/Vomiting Pantoprazole Sodium (Protonix Ec Tab) 40 mg PO DAILY [facility] Last Admin: 07/09/18 09:13 Dose: 40 mg Potassium Chloride (Klor-Con 10) 10 meq PO DAILY [facility] Last Admin: 07/09/18 10:01 Dose: 10 meq Rivastigmine (Exelon 9.5 Mg/24 Hr Patch) 1 patch TD DAILY [facility] Last Admin: 07/09/18 09:16 Dose: 1 patch Fluticasone/Salmeterol (Advair Diskus 250/50) 1 puff IH Q12 [facility] Last Admin: 07/09/18 09:14 Dose: 1 puff Sildenafil Citrate (Revatio) 20 mg PO TID [facility] Last Admin: 07/09/18 09:19 Dose: 20 mg Sitagliptin Phosphate (Januvia) 50 mg PO DAILY [facility] Last Admin: 07/09/18 09:15 Dose: Not Given Spironolactone (Aldactone) 25 mg PO DAILY [facility] Last Admin: 07/09/18 09:27 Dose: Not Given Tolterodine Tartrate (Detrol) 4 mg PO DAILY [facility] Last Admin: 07/09/18 09:14 Dose: 4 mg Physical Exam - Constitutional Appears: Well - Head Exam Head Exam: ATRAUMATIC, NORMAL INSPECTION, NORMOCEPHALIC - Eye Exam Eye Exam: EOMI, Normal appearance, PERRL Pupil Exam: NORMAL ACCOMODATION, PERRL - ENT Exam ENT Exam: Mucous Membranes Moist, Normal Exam - Neck Exam Neck exam: Positive for: Normal Inspection - Respiratory Exam Respiratory Exam: Clear to Auscultation Bilateral, NORMAL BREATHING PATTERN - Cardiovascular Exam Cardiovascular Exam: Irregular Rhythm, +S1, +S2, Systolic Murmur - GI/Abdominal Exam GI & Abdominal Exam: Normal Bowel Sounds, Soft. absent: Tenderness - Extremities Exam Extremities exam: Positive for: normal inspection - Back Exam Back exam: NORMAL INSPECTION - Neurological Exam Neurological exam: Alert, CN II-XII Intact, Normal Gait, Oriented x3, Reflexes Normal - Psychiatric Exam Psychiatric exam: Normal Affect, Normal Mood - Skin Skin Exam: Dry, Intact, Normal Color, Warm Results - Vital Signs Recent Vital Signs: Last Vital Signs Temp 97.9 F 07/09/18 08:01 Pulse 65 07/09/18 08:01 Resp 20 07/09/18 08:01 BP 96/60 L 07/09/18 09:27 Pulse Ox 100 07/09/18 08:01 - Labs Result Diagrams: 07/09/18 09:50 07/09/18 09:50 Labs: Laboratory Results - last 24 hr 07/08/18 07/08/18 07/08/18 10:48 16:23 21:14 WBC RBC Hgb Hct MCV MCH MCHC RDW Plt Count Sodium Potassium Chloride Carbon Dioxide Anion Gap BUN Creatinine Est GFR ( Amer) Est GFR (Non-Af Amer) POC Glucose (mg/dL) 166 H 139 H 154 H Random Glucose Calcium Total Bilirubin AST ALT Alkaline Phosphatase Total Protein Albumin Globulin Albumin/Globulin Ratio 07/09/18 07/09/18 07/09/18 04:56 09:50 09:50 WBC 6.1 RBC 5.12 Hgb 13.7 Hct 43.9 MCV 85.9 MCH 26.8 L MCHC 31.2 L RDW 15.9 H Plt Count 219 Sodium 138 Potassium 3.4 L Chloride 89 L Carbon Dioxide 37 H Anion Gap 15 BUN 26 H Creatinine 0.8 Est GFR ( Amer) > 60 Est GFR (Non-Af Amer) > 60 POC Glucose (mg/dL) 108 Random Glucose 120 H Calcium 9.5 Total Bilirubin 0.5 AST 44 H ALT 40 Alkaline Phosphatase 163 H D Total Protein 7.0 Albumin 4.0 Globulin 3.0 Albumin/Globulin Ratio 1.3 Assessment & Plan (1) Acute exacerbation of CHF (congestive heart failure) Assessment and Plan: fluid overload due to dietary non-compliance IV lasix resume home RAAS modulators Status: Resolved Priority: Low (2) A-fib Assessment and Plan: BB eliquis Status: Acute (3) CHF (congestive heart failure), NYHA class III Status: Acute (4) Dyspnea Status: Acute (5) Fatigue Status: Acute (6) Pulmonary HTN Status: Acute Priority: Medium (7) Pulmonary hypertension Status: Chronic Priority: Low
[2018-07-09] MEDS: Albuterol-Ipratrop 3 mg / 0.5 (3 ml) UD INH PRN (10:27)
--- NOTE | 2018-07-09 10:37 | CP.PCM.PN ---
Subjective - Date & Time of Evaluation Date of Evaluation: 07/04/18 Time of Evaluation: 10:35 - Subjective Subjective: edema improving sob improving c/o generalized aches and pains Objective - Vital Signs/Intake and Output Vital Signs (last 24 hours): Temp Pulse Resp BP Pulse Ox 97.9 F 65 20 96/60 L 100 07/09/18 08:01 07/09/18 08:01 07/09/18 08:01 07/09/18 09:27 07/09/18 08:01 - Medications Medications: Current Medications Acetaminophen (Tylenol 325mg Tab) 650 mg PO Q4 PRN PRN Reason: Pain, Mild (1-3) Last Admin: 07/06/18 15:58 Dose: 650 mg Albuterol/Ipratropium (Duoneb 3 Mg/0.5 Mg (3 Ml) Ud) 3 ml INH RQ4 PRN PRN Reason: Shortness of Breath Last Admin: 07/09/18 10:27 Dose: 3 ml Apixaban (Eliquis) 2.5 mg PO BID [facility]; Protocol Last Admin: 07/09/18 10:01 Dose: 2.5 mg Atorvastatin Calcium (Lipitor) 10 mg PO DAILY [facility] Last Admin: 07/09/18 09:13 Dose: 10 mg Docusate Sodium (Colace) 200 mg PO DAILY [facility] Last Admin: 07/09/18 09:14 Dose: 200 mg Donepezil HCl (Aricept) 5 mg PO HS [facility] Last Admin: 07/08/18 21:43 Dose: 5 mg Gabapentin (Neurontin) 300 mg PO TID [facility] Last Admin: 07/09/18 09:13 Dose: 300 mg Hydrochlorothiazide (Microzide) 12.5 mg PO DAILY [facility] Last Admin: 07/09/18 09:27 Dose: Not Given Levothyroxine Sodium (Synthroid) 100 mcg PO DAILY@0630 [facility] Last Admin: 07/09/18 06:10 Dose: 100 mcg Losartan Potassium (Cozaar) 50 mg PO DAILY [facility] Last Admin: 07/01/18 10:05 Dose: Not Given Metoprolol Tartrate (Lopressor) 25 mg PO Q12 [facility] Last Admin: 07/01/18 08:57 Dose: 25 mg Ondansetron HCl (Zofran Tab) 8 mg PO Q8 PRN PRN Reason: Nausea/Vomiting Pantoprazole Sodium (Protonix Ec Tab) 40 mg PO DAILY [facility] Last Admin: 07/09/18 09:13 Dose: 40 mg Potassium Chloride (Klor-Con 10) 10 meq PO DAILY [facility] Last Admin: 07/09/18 10:01 Dose: 10 meq Rivastigmine (Exelon 9.5 Mg/24 Hr Patch) 1 patch TD DAILY [facility] Last Admin: 07/09/18 09:16 Dose: 1 patch Fluticasone/Salmeterol (Advair Diskus 250/50) 1 puff IH Q12 [facility] Last Admin: 07/09/18 09:14 Dose: 1 puff Sildenafil Citrate (Revatio) 20 mg PO TID [facility] Last Admin: 07/09/18 09:19 Dose: 20 mg Sitagliptin Phosphate (Januvia) 50 mg PO DAILY [facility] Last Admin: 07/09/18 09:15 Dose: Not Given Spironolactone (Aldactone) 25 mg PO DAILY [facility] Last Admin: 07/09/18 09:27 Dose: Not Given Tolterodine Tartrate (Detrol) 4 mg PO DAILY [facility] Last Admin: 07/09/18 09:14 Dose: 4 mg - Labs Labs: 07/09/18 09:50 07/09/18 09:50 - Constitutional Appears: Well - Head Exam Head Exam: ATRAUMATIC, NORMAL INSPECTION, NORMOCEPHALIC - Eye Exam Eye Exam: EOMI, Normal appearance, PERRL Pupil Exam: NORMAL ACCOMODATION, PERRL - ENT Exam ENT Exam: Mucous Membranes Moist, Normal Exam - Neck Exam Neck Exam: Full ROM, Normal Inspection. absent: Lymphadenopathy - Respiratory Exam Respiratory Exam: Clear to Ausculation Bilateral, NORMAL BREATHING PATTERN - Cardiovascular Exam Cardiovascular Exam: REGULAR RHYTHM, +S1, +S2. absent: Murmur - GI/Abdominal Exam GI & Abdominal Exam: Soft, Normal Bowel Sounds. absent: Tenderness - Extremities Exam Extremities Exam: Full ROM, Normal Capillary Refill, Normal Inspection. absent: Joint Swelling, Pedal Edema - Back Exam Back Exam: NORMAL INSPECTION - Neurological Exam Neurological Exam: Alert, Awake, CN II-XII Intact, Normal Gait, Oriented x3 - Psychiatric Exam Psychiatric exam: Normal Affect, Normal Mood - Skin Skin Exam: Dry, Intact, Normal Color, Warm Assessment and Plan (1) Acute exacerbation of CHF (congestive heart failure) Status: Resolved (2) A-fib Status: Acute (3) CHF (congestive heart failure), NYHA class III Status: Acute (4) Dyspnea Status: Acute (5) Fatigue Status: Acute (6) Pulmonary HTN Status: Acute (7) Pulmonary hypertension Status: Chronic
--- NOTE | 2018-07-09 10:37 | CP.PCM.PN ---
Subjective - Date & Time of Evaluation Date of Evaluation: 07/03/18 Time of Evaluation: 10:00 - Subjective Subjective: edema improving Objective - Vital Signs/Intake and Output Vital Signs (last 24 hours): Temp Pulse Resp BP Pulse Ox 97.9 F 65 20 96/60 L 100 07/09/18 08:01 07/09/18 08:01 07/09/18 08:01 07/09/18 09:27 07/09/18 08:01 - Medications Medications: Current Medications Acetaminophen (Tylenol 325mg Tab) 650 mg PO Q4 PRN PRN Reason: Pain, Mild (1-3) Last Admin: 07/06/18 15:58 Dose: 650 mg Albuterol/Ipratropium (Duoneb 3 Mg/0.5 Mg (3 Ml) Ud) 3 ml INH RQ4 PRN PRN Reason: Shortness of Breath Last Admin: 07/09/18 10:27 Dose: 3 ml Apixaban (Eliquis) 2.5 mg PO BID [facility]; Protocol Last Admin: 07/09/18 10:01 Dose: 2.5 mg Atorvastatin Calcium (Lipitor) 10 mg PO DAILY [facility] Last Admin: 07/09/18 09:13 Dose: 10 mg Docusate Sodium (Colace) 200 mg PO DAILY [facility] Last Admin: 07/09/18 09:14 Dose: 200 mg Donepezil HCl (Aricept) 5 mg PO HS [facility] Last Admin: 07/08/18 21:43 Dose: 5 mg Gabapentin (Neurontin) 300 mg PO TID [facility] Last Admin: 07/09/18 09:13 Dose: 300 mg Hydrochlorothiazide (Microzide) 12.5 mg PO DAILY [facility] Last Admin: 07/09/18 09:27 Dose: Not Given Levothyroxine Sodium (Synthroid) 100 mcg PO DAILY@0630 [facility] Last Admin: 07/09/18 06:10 Dose: 100 mcg Losartan Potassium (Cozaar) 50 mg PO DAILY [facility] Last Admin: 07/01/18 10:05 Dose: Not Given Metoprolol Tartrate (Lopressor) 25 mg PO Q12 [facility] Last Admin: 07/01/18 08:57 Dose: 25 mg Ondansetron HCl (Zofran Tab) 8 mg PO Q8 PRN PRN Reason: Nausea/Vomiting Pantoprazole Sodium (Protonix Ec Tab) 40 mg PO DAILY [facility] Last Admin: 07/09/18 09:13 Dose: 40 mg Potassium Chloride (Klor-Con 10) 10 meq PO DAILY [facility] Last Admin: 07/09/18 10:01 Dose: 10 meq Rivastigmine (Exelon 9.5 Mg/24 Hr Patch) 1 patch TD DAILY [facility] Last Admin: 07/09/18 09:16 Dose: 1 patch Fluticasone/Salmeterol (Advair Diskus 250/50) 1 puff IH Q12 [facility] Last Admin: 07/09/18 09:14 Dose: 1 puff Sildenafil Citrate (Revatio) 20 mg PO TID [facility] Last Admin: 07/09/18 09:19 Dose: 20 mg Sitagliptin Phosphate (Januvia) 50 mg PO DAILY [facility] Last Admin: 07/09/18 09:15 Dose: Not Given Spironolactone (Aldactone) 25 mg PO DAILY [facility] Last Admin: 07/09/18 09:27 Dose: Not Given Tolterodine Tartrate (Detrol) 4 mg PO DAILY [facility] Last Admin: 07/09/18 09:14 Dose: 4 mg - Labs Labs: 07/09/18 09:50 07/09/18 09:50 - Constitutional Appears: Well - Head Exam Head Exam: ATRAUMATIC, NORMAL INSPECTION, NORMOCEPHALIC - Eye Exam Eye Exam: EOMI, Normal appearance, PERRL Pupil Exam: NORMAL ACCOMODATION, PERRL - ENT Exam ENT Exam: Mucous Membranes Moist, Normal Exam - Neck Exam Neck Exam: Full ROM, Normal Inspection. absent: Lymphadenopathy - Respiratory Exam Respiratory Exam: Clear to Ausculation Bilateral, NORMAL BREATHING PATTERN - Cardiovascular Exam Cardiovascular Exam: Irregular Rhythm, +S1, +S2. absent: Murmur - GI/Abdominal Exam GI & Abdominal Exam: Soft, Normal Bowel Sounds. absent: Tenderness - Extremities Exam Extremities Exam: Full ROM, Normal Capillary Refill, Normal Inspection. absent: Joint Swelling, Pedal Edema - Back Exam Back Exam: NORMAL INSPECTION - Neurological Exam Neurological Exam: Alert, Awake, CN II-XII Intact, Normal Gait, Oriented x3 - Psychiatric Exam Psychiatric exam: Normal Affect, Normal Mood - Skin Skin Exam: Dry, Intact, Normal Color, Warm Assessment and Plan (1) Acute exacerbation of CHF (congestive heart failure) Status: Resolved (2) A-fib Status: Acute (3) CHF (congestive heart failure), NYHA class III Status: Acute (4) Dyspnea Status: Acute (5) Fatigue Status: Acute (6) Pulmonary HTN Status: Acute (7) Pulmonary hypertension Status: Chronic
--- NOTE | 2018-07-09 10:38 | CP.PCM.PN ---
Subjective - Date & Time of Evaluation Date of Evaluation: 07/05/18 Time of Evaluation: 10:37 - Subjective Subjective: improving SOB and edema Objective - Vital Signs/Intake and Output Vital Signs (last 24 hours): Temp Pulse Resp BP Pulse Ox 97.9 F 65 20 96/60 L 100 07/09/18 08:01 07/09/18 08:01 07/09/18 08:01 07/09/18 09:27 07/09/18 08:01 - Medications Medications: Current Medications Acetaminophen (Tylenol 325mg Tab) 650 mg PO Q4 PRN PRN Reason: Pain, Mild (1-3) Last Admin: 07/06/18 15:58 Dose: 650 mg Albuterol/Ipratropium (Duoneb 3 Mg/0.5 Mg (3 Ml) Ud) 3 ml INH RQ4 PRN PRN Reason: Shortness of Breath Last Admin: 07/09/18 10:27 Dose: 3 ml Apixaban (Eliquis) 2.5 mg PO BID [facility]; Protocol Last Admin: 07/09/18 10:01 Dose: 2.5 mg Atorvastatin Calcium (Lipitor) 10 mg PO DAILY [facility] Last Admin: 07/09/18 09:13 Dose: 10 mg Docusate Sodium (Colace) 200 mg PO DAILY [facility] Last Admin: 07/09/18 09:14 Dose: 200 mg Donepezil HCl (Aricept) 5 mg PO HS [facility] Last Admin: 07/08/18 21:43 Dose: 5 mg Gabapentin (Neurontin) 300 mg PO TID [facility] Last Admin: 07/09/18 09:13 Dose: 300 mg Hydrochlorothiazide (Microzide) 12.5 mg PO DAILY [facility] Last Admin: 07/09/18 09:27 Dose: Not Given Levothyroxine Sodium (Synthroid) 100 mcg PO DAILY@0630 [facility] Last Admin: 07/09/18 06:10 Dose: 100 mcg Losartan Potassium (Cozaar) 50 mg PO DAILY [facility] Last Admin: 07/01/18 10:05 Dose: Not Given Metoprolol Tartrate (Lopressor) 25 mg PO Q12 [facility] Last Admin: 07/01/18 08:57 Dose: 25 mg Ondansetron HCl (Zofran Tab) 8 mg PO Q8 PRN PRN Reason: Nausea/Vomiting Pantoprazole Sodium (Protonix Ec Tab) 40 mg PO DAILY [facility] Last Admin: 07/09/18 09:13 Dose: 40 mg Potassium Chloride (Klor-Con 10) 10 meq PO DAILY [facility] Last Admin: 07/09/18 10:01 Dose: 10 meq Rivastigmine (Exelon 9.5 Mg/24 Hr Patch) 1 patch TD DAILY [facility] Last Admin: 07/09/18 09:16 Dose: 1 patch Fluticasone/Salmeterol (Advair Diskus 250/50) 1 puff IH Q12 [facility] Last Admin: 07/09/18 09:14 Dose: 1 puff Sildenafil Citrate (Revatio) 20 mg PO TID [facility] Last Admin: 07/09/18 09:19 Dose: 20 mg Sitagliptin Phosphate (Januvia) 50 mg PO DAILY [facility] Last Admin: 07/09/18 09:15 Dose: Not Given Spironolactone (Aldactone) 25 mg PO DAILY [facility] Last Admin: 07/09/18 09:27 Dose: Not Given Tolterodine Tartrate (Detrol) 4 mg PO DAILY [facility] Last Admin: 07/09/18 09:14 Dose: 4 mg - Labs Labs: 07/09/18 09:50 07/09/18 09:50 - Constitutional Appears: Well - Head Exam Head Exam: ATRAUMATIC, NORMAL INSPECTION, NORMOCEPHALIC - Eye Exam Eye Exam: EOMI, Normal appearance, PERRL Pupil Exam: NORMAL ACCOMODATION, PERRL - ENT Exam ENT Exam: Mucous Membranes Moist, Normal Exam - Neck Exam Neck Exam: Full ROM, Normal Inspection. absent: Lymphadenopathy - Respiratory Exam Respiratory Exam: Clear to Ausculation Bilateral, NORMAL BREATHING PATTERN - Cardiovascular Exam Cardiovascular Exam: REGULAR RHYTHM, +S1, +S2. absent: Murmur - GI/Abdominal Exam GI & Abdominal Exam: Soft, Normal Bowel Sounds. absent: Tenderness - Extremities Exam Extremities Exam: Full ROM, Normal Capillary Refill, Normal Inspection. absent: Joint Swelling, Pedal Edema - Back Exam Back Exam: NORMAL INSPECTION - Neurological Exam Neurological Exam: Alert, Awake, CN II-XII Intact, Normal Gait, Oriented x3 - Psychiatric Exam Psychiatric exam: Normal Affect, Normal Mood - Skin Skin Exam: Dry, Intact, Normal Color, Warm Assessment and Plan (1) Acute exacerbation of CHF (congestive heart failure) Status: Resolved (2) A-fib Status: Acute (3) CHF (congestive heart failure), NYHA class III Status: Acute (4) Dyspnea Status: Acute (5) Fatigue Status: Acute (6) Pulmonary HTN Status: Acute (7) Pulmonary hypertension Status: Chronic
--- NOTE | 2018-07-09 10:39 | CP.PCM.PN ---
Subjective - Date & Time of Evaluation Date of Evaluation: 07/06/18 Time of Evaluation: 10:38 - Subjective Subjective: feeling better wants to go to subacute rehab Objective - Vital Signs/Intake and Output Vital Signs (last 24 hours): Temp Pulse Resp BP Pulse Ox 97.9 F 65 20 96/60 L 100 07/09/18 08:01 07/09/18 08:01 07/09/18 08:01 07/09/18 09:27 07/09/18 08:01 - Medications Medications: Current Medications Acetaminophen (Tylenol 325mg Tab) 650 mg PO Q4 PRN PRN Reason: Pain, Mild (1-3) Last Admin: 07/06/18 15:58 Dose: 650 mg Albuterol/Ipratropium (Duoneb 3 Mg/0.5 Mg (3 Ml) Ud) 3 ml INH RQ4 PRN PRN Reason: Shortness of Breath Last Admin: 07/09/18 10:27 Dose: 3 ml Apixaban (Eliquis) 2.5 mg PO BID [facility]; Protocol Last Admin: 07/09/18 10:01 Dose: 2.5 mg Atorvastatin Calcium (Lipitor) 10 mg PO DAILY [facility] Last Admin: 07/09/18 09:13 Dose: 10 mg Docusate Sodium (Colace) 200 mg PO DAILY [facility] Last Admin: 07/09/18 09:14 Dose: 200 mg Donepezil HCl (Aricept) 5 mg PO HS [facility] Last Admin: 07/08/18 21:43 Dose: 5 mg Gabapentin (Neurontin) 300 mg PO TID [facility] Last Admin: 07/09/18 09:13 Dose: 300 mg Hydrochlorothiazide (Microzide) 12.5 mg PO DAILY [facility] Last Admin: 07/09/18 09:27 Dose: Not Given Levothyroxine Sodium (Synthroid) 100 mcg PO DAILY@0630 [facility] Last Admin: 07/09/18 06:10 Dose: 100 mcg Losartan Potassium (Cozaar) 50 mg PO DAILY [facility] Last Admin: 07/01/18 10:05 Dose: Not Given Metoprolol Tartrate (Lopressor) 25 mg PO Q12 [facility] Last Admin: 07/01/18 08:57 Dose: 25 mg Ondansetron HCl (Zofran Tab) 8 mg PO Q8 PRN PRN Reason: Nausea/Vomiting Pantoprazole Sodium (Protonix Ec Tab) 40 mg PO DAILY [facility] Last Admin: 07/09/18 09:13 Dose: 40 mg Potassium Chloride (Klor-Con 10) 10 meq PO DAILY [facility] Last Admin: 07/09/18 10:01 Dose: 10 meq Rivastigmine (Exelon 9.5 Mg/24 Hr Patch) 1 patch TD DAILY [facility] Last Admin: 07/09/18 09:16 Dose: 1 patch Fluticasone/Salmeterol (Advair Diskus 250/50) 1 puff IH Q12 [facility] Last Admin: 07/09/18 09:14 Dose: 1 puff Sildenafil Citrate (Revatio) 20 mg PO TID [facility] Last Admin: 07/09/18 09:19 Dose: 20 mg Sitagliptin Phosphate (Januvia) 50 mg PO DAILY [facility] Last Admin: 07/09/18 09:15 Dose: Not Given Spironolactone (Aldactone) 25 mg PO DAILY [facility] Last Admin: 07/09/18 09:27 Dose: Not Given Tolterodine Tartrate (Detrol) 4 mg PO DAILY [facility] Last Admin: 07/09/18 09:14 Dose: 4 mg - Labs Labs: 07/09/18 09:50 07/09/18 09:50 - Constitutional Appears: Well - Head Exam Head Exam: ATRAUMATIC, NORMAL INSPECTION, NORMOCEPHALIC - Eye Exam Eye Exam: EOMI, Normal appearance, PERRL Pupil Exam: NORMAL ACCOMODATION, PERRL - ENT Exam ENT Exam: Mucous Membranes Moist, Normal Exam - Neck Exam Neck Exam: Full ROM, Normal Inspection. absent: Lymphadenopathy - Respiratory Exam Respiratory Exam: Clear to Ausculation Bilateral, NORMAL BREATHING PATTERN - Cardiovascular Exam Cardiovascular Exam: REGULAR RHYTHM, +S1, +S2. absent: Murmur - GI/Abdominal Exam GI & Abdominal Exam: Soft, Normal Bowel Sounds. absent: Tenderness - Extremities Exam Extremities Exam: Full ROM, Normal Capillary Refill, Normal Inspection. absent: Joint Swelling, Pedal Edema - Back Exam Back Exam: NORMAL INSPECTION - Neurological Exam Neurological Exam: Alert, Awake, CN II-XII Intact, Normal Gait, Oriented x3 - Psychiatric Exam Psychiatric exam: Normal Affect, Normal Mood - Skin Skin Exam: Dry, Intact, Normal Color, Warm Assessment and Plan (1) Acute exacerbation of CHF (congestive heart failure) Status: Resolved (2) A-fib Status: Acute (3) CHF (congestive heart failure), NYHA class III Status: Acute (4) Dyspnea Status: Acute (5) Fatigue Status: Acute (6) Pulmonary HTN Status: Acute (7) Pulmonary hypertension Status: Chronic
--- NOTE | 2018-07-09 10:45 | CP.PCM.PN ---
Subjective - Date & Time of Evaluation Date of Evaluation: 07/09/18 Time of Evaluation: 10:43 - Subjective Subjective: overdiuresis noted on contraction alkalosis and decreased Cl feeling fine c/o genearlized aches Objective - Vital Signs/Intake and Output Vital Signs (last 24 hours): Temp Pulse Resp BP Pulse Ox 97.9 F 65 20 96/60 L 100 07/09/18 08:01 07/09/18 08:01 07/09/18 08:01 07/09/18 09:27 07/09/18 08:01 - Medications Medications: Current Medications Acetaminophen (Tylenol 325mg Tab) 650 mg PO Q4 PRN PRN Reason: Pain, Mild (1-3) Last Admin: 07/06/18 15:58 Dose: 650 mg Albuterol/Ipratropium (Duoneb 3 Mg/0.5 Mg (3 Ml) Ud) 3 ml INH RQ4 PRN PRN Reason: Shortness of Breath Last Admin: 07/09/18 10:27 Dose: 3 ml Apixaban (Eliquis) 2.5 mg PO BID [facility]; Protocol Last Admin: 07/09/18 10:01 Dose: 2.5 mg Atorvastatin Calcium (Lipitor) 10 mg PO DAILY [facility] Last Admin: 07/09/18 09:13 Dose: 10 mg Docusate Sodium (Colace) 200 mg PO DAILY [facility] Last Admin: 07/09/18 09:14 Dose: 200 mg Donepezil HCl (Aricept) 5 mg PO HS [facility] Last Admin: 07/08/18 21:43 Dose: 5 mg Gabapentin (Neurontin) 300 mg PO TID [facility] Last Admin: 07/09/18 09:13 Dose: 300 mg Hydrochlorothiazide (Microzide) 12.5 mg PO DAILY [facility] Last Admin: 07/09/18 09:27 Dose: Not Given Levothyroxine Sodium (Synthroid) 100 mcg PO DAILY@0630 [facility] Last Admin: 07/09/18 06:10 Dose: 100 mcg Losartan Potassium (Cozaar) 50 mg PO DAILY [facility] Last Admin: 07/01/18 10:05 Dose: Not Given Metoprolol Tartrate (Lopressor) 25 mg PO Q12 [facility] Last Admin: 07/01/18 08:57 Dose: 25 mg Ondansetron HCl (Zofran Tab) 8 mg PO Q8 PRN PRN Reason: Nausea/Vomiting Pantoprazole Sodium (Protonix Ec Tab) 40 mg PO DAILY [facility] Last Admin: 07/09/18 09:13 Dose: 40 mg Potassium Chloride (Klor-Con 10) 10 meq PO DAILY [facility] Last Admin: 07/09/18 10:01 Dose: 10 meq Rivastigmine (Exelon 9.5 Mg/24 Hr Patch) 1 patch TD DAILY [facility] Last Admin: 07/09/18 09:16 Dose: 1 patch Fluticasone/Salmeterol (Advair Diskus 250/50) 1 puff IH Q12 [facility] Last Admin: 07/09/18 09:14 Dose: 1 puff Sildenafil Citrate (Revatio) 20 mg PO TID [facility] Last Admin: 07/09/18 09:19 Dose: 20 mg Sitagliptin Phosphate (Januvia) 50 mg PO DAILY [facility] Last Admin: 07/09/18 09:15 Dose: Not Given Spironolactone (Aldactone) 25 mg PO DAILY [facility] Last Admin: 07/09/18 09:27 Dose: Not Given Tolterodine Tartrate (Detrol) 4 mg PO DAILY [facility] Last Admin: 07/09/18 09:14 Dose: 4 mg - Labs Labs: 07/09/18 09:50 07/09/18 09:50 - Constitutional Appears: Well - Head Exam Head Exam: ATRAUMATIC, NORMAL INSPECTION, NORMOCEPHALIC - Eye Exam Eye Exam: EOMI, Normal appearance, PERRL Pupil Exam: NORMAL ACCOMODATION, PERRL - ENT Exam ENT Exam: Mucous Membranes Moist, Normal Exam - Neck Exam Neck Exam: Full ROM, Normal Inspection. absent: Lymphadenopathy - Respiratory Exam Respiratory Exam: Clear to Ausculation Bilateral, NORMAL BREATHING PATTERN - Cardiovascular Exam Cardiovascular Exam: REGULAR RHYTHM, +S1, +S2. absent: Murmur - GI/Abdominal Exam GI & Abdominal Exam: Soft, Normal Bowel Sounds. absent: Tenderness - Extremities Exam Extremities Exam: Full ROM, Normal Capillary Refill, Normal Inspection. absent: Joint Swelling, Pedal Edema - Back Exam Back Exam: NORMAL INSPECTION - Neurological Exam Neurological Exam: Alert, Awake, CN II-XII Intact, Normal Gait, Oriented x3 - Psychiatric Exam Psychiatric exam: Normal Affect, Normal Mood - Skin Skin Exam: Dry, Intact, Normal Color, Warm Assessment and Plan (1) Acute exacerbation of CHF (congestive heart failure) Status: Resolved (2) A-fib Status: Acute (3) CHF (congestive heart failure), NYHA class III Status: Acute (4) Dyspnea Status: Acute (5) Fatigue Status: Acute (6) Pulmonary HTN Status: Acute (7) Pulmonary hypertension Status: Chronic
--- NOTE | 2018-07-10 00:03 | CP.PCM.DIS ---
Provider - Provider Date of Admission: 06/30/18 18:55 Attending physician: Manjit Angulo MD Time Spent in preparation of Discharge (in minutes): 25 Diagnosis - Discharge Diagnosis (1) Congestive heart failure Status: Acute Priority: Medium (2) Physical deconditioning Status: Acute Priority: Medium (3) Pulmonary HTN Status: Acute Priority: Medium (4) A-fib Status: Chronic Priority: Low (5) Bronchial asthma Status: Chronic Priority: Low (6) DM2 (diabetes mellitus, type 2) Status: Chronic Priority: Low (7) Hypertension Status: Chronic Priority: Low (8) Hypothyroid Status: Chronic Priority: Low (9) Pulmonary hypertension Status: Chronic Priority: Low Hospital Course - Lab Results Lab Results: Most Recent Lab Values WBC 6.1 K/uL (4.8-10.8) 07/09/18 09:50 RBC 5.12 Mil/uL (3.80-5.20) 07/09/18 09:50 Hgb 13.7 g/dL (12.0-16.0) 07/09/18 09:50 Hct 43.9 % (34.0-47.0) 07/09/18 09:50 MCV 85.9 fl (81.0-99.0) 07/09/18 09:50 MCH 26.8 pg (27.0-31.0) L 07/09/18 09:50 MCHC 31.2 g/dL (33.0-37.0) L 07/09/18 09:50 RDW 15.9 % (11.5-14.5) H 07/09/18 09:50 Plt Count 219 K/uL (130-400) 07/09/18 09:50 MPV 9.2 fl (7.2-11.7) 06/30/18 17:28 Neut % (Auto) 48.0 % (50.0-75.0) L 06/30/18 17:28 Lymph % (Auto) 38.6 % (20.0-40.0) 06/30/18 17:28 Day % (Auto) 11.9 % (0.0-10.0) H 06/30/18 17:28 Eos % (Auto) 1.1 % (0.0-4.0) 06/30/18 17:28 Baso % (Auto) 0.4 % (0.0-2.0) 06/30/18 17: Neut # (Auto) 3.2 K/uL (1.8-7.0) 06/30/18 17: Lymph # (Auto) 2.6 K/uL (1.0-4.3) 06/30/18 17:28 Day # (Auto) 0.8 K/uL (0.0-0.8) 06/30/18 17: Eos # (Auto) 0.1 K/uL (0.0-0.7) 06/30/18 17: Baso # (Auto) 0.0 K/uL (0.0-0.2) 06/30/18 17: pO2 32 mm/Hg (30-55) 06/30/18 17: VBG pH 7.38 (7.32-7.43) 06/30/18 17: VBG pCO2 52 mmHg (40-60) 06/30/18 17: VBG HCO3 27.3 mmol/L 06/30/18 17:28 VBG Total CO2 32.4 mmol/L (22-28) H 06/30/18 17:28 VBG O2 Sat (Calc) 67.1 % (40-65) H 06/30/18 17:28 VBG Base Excess 4.4 mmol/L (0.0-2.0) H 06/30/18 17:28 VBG Potassium 3.7 mmol/L (3.6-5.2) 06/30/18 17: Sodium 136.0 mmol/L (132-148) 06/30/18 17: Chloride 101.0 mmol/L (98-107) 06/30/18 17:28 Glucose 110 mg/dL (65-105) H 06/30/18 17:28 Lactate 0.9 mmol/L (0.7-2.1) 06/30/18 17: FiO2 21.0 % 06/30/18 17: Sodium 138 mmol/l (132-148) 07/09/18 09:50 Potassium 3.4 MMOL/L (3.6-5.0) L 07/09/18 09:50 Chloride 89 mmol/L (98-107) L 07/09/18 09:50 Carbon Dioxide 37 mmol/L (22-30) H 07/09/18 09:50 Anion Gap 15 (10-20) 07/09/18 09:50 BUN 26 mg/dl (7-17) H 07/09/18 09:50 Creatinine 0.8 mg/dl (0.7-1.2) 07/09/18 09:50 Est GFR ( Amer) > 60 07/09/18 09:50 Est GFR (Non-Af Amer) > 60 07/09/18 09:50 POC Glucose (mg/dL) 137 mg/dL (65-110) H 07/09/18 10:58 Random Glucose 120 mg/dL (65-105) H 07/09/18 09:50 Calcium 9.5 mg/dL (8.4-10.2) 07/09/18 09:50 Total Bilirubin 0.5 mg/dl (0.2-1.3) 07/09/18 09:50 AST 44 U/L (14-36) H 07/09/18 09:50 ALT 40 U/L (9-52) 07/09/18 09:50 Alkaline Phosphatase 163 U/L (38-126) H D 07/09/18 09:50 Troponin I < 0.0120 ng/mL (0.00-0.120) 06/30/18 17:28 NT-Pro-B Natriuret Pep 1400 pg/ml (0-900) H 07/04/18 09:32 Total Protein 7.0 G/DL (6.3-8.2) 07/09/18 09:50 Albumin 4.0 g/dL (3.5-5.0) 07/09/18 09:50 Globulin 3.0 gm/dL (2.2-3.9) 07/09/18 09:50 Albumin/Globulin Ratio 1.3 (1.0-2.1) 07/09/18 09:50 Venous Blood Potassium 3.7 mmol/L (3.6-5.2) 06/30/18 17:28 Urine Color Straw (YELLOW) 07/01/18 07:32 Urine Clarity Clear (Clear) 07/01/18 07:32 Urine pH 6.0 (5.0-8.0) 07/01/18 07:32 Ur Specific [place] 1.008 (1.003-1.030) 07/01/18 07:32 Urine Protein Negative mg/dL (NEGATIVE) 07/01/18 07:32 Urine Glucose (UA) Neg mg/dL (Normal) 07/01/18 07:32 Urine Ketones Negative mg/dL (NEGATIVE) 07/01/18 07:32 Urine Blood Negative (NEGATIVE) 07/01/18 07:32 Urine Nitrate Negative (NEGATIVE) 07/01/18 07:32 Urine Bilirubin Negative (NEGATIVE) 07/01/18 07:32 Urine Urobilinogen 0.2-1.0 mg/dL (0.2-1.0) 07/01/18 07:32 Ur Leukocyte Esterase Small Dorothea/uL (Negative) 07/01/18 07:32 Urine RBC (Auto) 1 /hpf (0-3) 07/01/18 07:32 Urine Microscopic WBC 5 /hpf (0-5) 07/01/18 07:32 Urine Bacteria Rare (<OCC) 07/01/18 07:32 Digoxin 0.9 ng/mL (0.8-2.0) 07/01/18 09:50 Discharge Exam - Head Exam Head Exam: ATRAUMATIC, NORMAL INSPECTION, NORMOCEPHALIC Discharge Plan - Discharge Medications Prescriptions: Spironolactone [Aldactone] 25 mg PO DAILY #30 tab Atorvastatin [Lipitor] 10 mg PO DAILY #30 tab Pantoprazole [Protonix EC Tab] 40 mg PO DAILY #30 ect Ondansetron [Zofran Tab] 8 mg PO Q8 PRN #10 tab PRN Reason: Nausea/Vomiting - Follow Up Plan Condition: GOOD Disposition: HOME/ ROUTINE Instructions: Heart Failure, Adult (DC), Exacerbation of COPD (DC) Additional Instructions: follow up visit with on monday07/20/18 2;[facility] [phone] Referrals: Pancho Street MD [Staff Provider] - Isadora Banuelos MD [Family Provider] -
== END 2018-07-09 14:20 | disposition home or self-care (01) | DRG 293 ==
LOC: H.ER 16:27 → H.ERHOLD 18:55 → H.TEL 07-02 16:42
PROVIDERS: ADMIT Internal Medicine; ATTEND Internal Medicine
DX: I11.0 Hypertensive heart disease with heart failure (principal); I48.2 Chronic atrial fibrillation; I50.9 Heart failure, unspecified; I27.20 Pulmonary hypertension, unspecified; E11.9 Type 2 diabetes mellitus without complications; E78.00 Pure hypercholesterolemia, unspecified; E78.5 Hyperlipidemia, unspecified; F03.90 Unspecified dementia, unspecified severity, without behavioral disturbance, psychotic disturbance, mood disturbance, and anxiety; F31.9 Bipolar disorder, unspecified; H54.7 Unspecified visual loss; I25.10 Atherosclerotic heart disease of native coronary artery without angina pectoris; M81.0 Age-related osteoporosis without current pathological fracture; Z86.73 Personal history of transient ischemic attack (TIA), and cerebral infarction without residual deficits; Z90.49 Acquired absence of other specified parts of digestive tract; Z91.11 Patient's noncompliance with dietary regimen; Z95.0 Presence of cardiac pacemaker; F32.9 Major depressive disorder, single episode, unspecified; F41.9 Anxiety disorder, unspecified; I95.9 Hypotension, unspecified; K29.70 Gastritis, unspecified, without bleeding; K44.9 Diaphragmatic hernia without obstruction or gangrene; M19.90 Unspecified osteoarthritis, unspecified site; R32 Unspecified urinary incontinence; E03.9 Hypothyroidism, unspecified; J45.909 Unspecified asthma, uncomplicated

== ENCOUNTER 2018-07-12 19:55 | Inpatient (IN) | payer MEDICARE, MEDICAID ==
[2018-07-12 19:55] VITALS: BMI 34.2
[2018-07-12 21:02] LABS: BASO % 0.7 % (0.0-2.0); EOS % 0.2 % (0.0-4.0); HEMOGLOBIN 13.6 g/dL (12.0-16.0); LYMPH # 1.3 K/uL (1.0-4.3); LYMPH % 24.1 % (20.0-40.0); MEAN CELL VOLUME 84.1 fl (81.0-99.0); MEAN CORPUSCULAR HGB CONC 32.1 g/dL (33.0-37.0); MONO # 0.4 K/uL (0.0-0.8); MONO % 7.4 % (0.0-10.0); NEUT # 3.7 K/uL (1.8-7.0); NEUT % 67.6 % (50.0-75.0); RBC 5.04 Mil/uL (3.80-5.20); RED CELL DISTRIBUTION WIDTH 15.6 % (11.5-14.5); WHITE BLOOD COUNT 5.5 K/uL (4.8-10.8)
[2018-07-12 21:09] LABS: ALB/GLOB RATIO 1.4 (1.0-2.1); ALBUMIN 4.1 g/dL (3.5-5.0); ALT/SGPT 46 U/L (9-52); AST/SGOT 51 U/L (14-36); BLOOD UREA NITROGEN 20 mg/dl (7-17); CALCIUM 9.6 mg/dL (8.4-10.2); GFR NON-AFRICAN AMERICAN > 60
[2018-07-12 21:19] LABS: B-TYPE NATRIURETIC PEPTIDE 2090 pg/ml (0-900)
[2018-07-12 21:27] LABS: INR 1.2; PROTHROMBIN TIME 14.1 Seconds (9.8-13.1)
[2018-07-12 21:29] LABS: PARTIAL THROMBOPLASTIN TIME 37.2 Seconds (25.6-37.1)
[2018-07-12] MEDS ORDERED: Sodium Chloride 0.9% 0 ML IV ONE (23:44)
[2018-07-12] MEDS ORDERED: Iohexol 300 100 ML IJ ONE (23:44)
--- NOTE | 2018-07-13 00:43 | ED PDOC ---
HPI: Abdomen Time Seen by Provider: 07/12/18 20:14 Chief Complaint (Nursing): GI Problem Chief Complaint (Provider): Abdominal pain, vomiting, chest pain History Per: Patient History/Exam Limitations: no limitations Onset/Duration Of Symptoms: Days Additional Complaint(s): 82 yo female with HTN, high cholesterol, DM, NE and CHF presents for evaluation of abdominal pain and vomiting x 3. Pt states that she began vomiting in the afternoon. Pt reports diffuse abdominal pain. No BM today however reports normal BM yesterday. Pt also reports chest pain, left sided since this morning. Pt denies SOB. Past Medical History Reviewed: Historical Data, Nursing Documentation, Vital Signs Vital Signs: Last Vital Signs Temp 98.3 F 07/12/18 20:02 Pulse 71 07/12/18 21:30 Resp 16 07/12/18 21:30 BP 131/68 07/12/18 21:30 Pulse Ox 97 07/12/18 21:30 - Medical History PMH: Anxiety, Arthritis, Asthma, Atrial Fibrillation, Bipolar Disorder, CAD, Cardia Arrhythmia (a fib), CHF, COPD, Crohn's Disease, CVA, Dementia, Depression, Diabetes, Diverticulitis, Fractures (Left Hip displacement), Gastritis, Hiatal Hernia, HTN, Hypercholesterolemia, Hyperlipidemia, Hypothyroidism, Osteoporosis, Peripheral Edema Denies: HIV, Chronic Kidney Disease - Surgical History Surgical History: Appendectomy, Cholecystectomy (documented in history but patient does not acknowledge), Pacemaker, - Family History Family History: States: Unknown Family Hx - Immunization History Hx Tetanus Toxoid Vaccination: Yes Hx Influenza Vaccination: Yes Hx Pneumococcal Vaccination: Yes - Home Medications Home Medications: Ambulatory Orders Medication Instructions Recorded Donepezil HCl [Aricept Odt] 1 tab PO DAILY 08/04/17 Albuterol HFA [Ventolin HFA 90 2 in INH Q6 PRN #1 inhaler 08/22/17 mcg/actuation (8 g)] Apixaban [Eliquis] 2.5 mg PO BID #60 tab 08/22/17 Aspirin [Ecotrin] 81 mg PO DAILY #30 tabec 08/22/17 Atorvastatin [Lipitor] 10 mg PO DAILY #30 tab 08/22/17 Digoxin 125 mcg PO DAILY 08/22/17 Docusate [Colace] 200 mg PO HS #60 cap 08/22/17 Esomeprazole Magnesium [Nexium] 40 mg PO DAILY #30 ecc 08/22/17 Fluticasone/Salmeterol 250/50 1 inh INH Q12 #1 dsk 08/22/17 [Advair Diskus 250/50] Gabapentin 300 mg PO TID #90 capsule 08/22/17 Levothyroxine [Synthroid] 100 mcg PO DAILY #30 tab 08/22/17 Lipase/Protease/Amylase [Zenpep Dr 2 cap PO BID #120 capsule.dr 08/22/17 3,000 Unit Capsule] Losartan/Hydrochlorothiazide 1 tab PO DAILY #30 tablet 08/22/17 [Losartan-Hctz 50-12.5 mg Tab] Magnesium Oxide [Magox 400] 400 mg PO DAILY #30 tablet 08/22/17 Meloxicam [Mobic] 7.5 mg PO DAILY #30 tab 08/22/17 Metoprolol Tartrate [Lopressor] 25 mg PO Q12 #60 tab 08/22/17 Rivastigmine 9.5 mg/24 hr [Exelon 1 patch TD DAILY #30 patch 08/22/17 9.5 mg/24 hr Patch] SITagliptin [Januvia] 50 mg PO DAILY #30 tab 08/22/17 Sildenafil [Revatio] 20 mg PO TID #90 tab 08/22/17 Sucralfate [Carafate Oral Susp] 1 gm PO BID #1 udc 08/22/17 Tolterodine [Detrol LA] 4 mg PO DAILY #30 cer 08/22/17 Ibuprofen [Motrin Tab] 600 mg PO Q6 PRN #30 tab 04/20/18 Furosemide [Lasix] 40 mg PO BID #60 tab 05/08/18 Potassium Chloride [Klor-Con 10] 10 meq PO DAILY #7 tablet.er 05/08/18 Spironolactone [Aldactone] 25 mg PO DAILY #30 tab 05/08/18 Ondansetron [Zofran Odt] 4 mg PO Q8 PRN #10 odt 05/10/18 Atorvastatin [Lipitor] 10 mg PO DAILY #30 tab 07/06/18 Ondansetron [Zofran Tab] 8 mg PO Q8 PRN #10 tab 07/06/18 Pantoprazole [Protonix EC Tab] 40 mg PO DAILY #30 ect 07/06/18 Spironolactone [Aldactone] 25 mg PO DAILY #30 tab 07/06/18 - Allergies Allergies/Adverse Reactions: Allergies Allergy/AdvReac Type Severity Reaction Status Date / Time No Known Allergies Allergy Verified 06/30/18 16:36 Review of Systems ROS Statement: Except As Marked, All Systems Reviewed And Found Negative Constitutional: Negative for: Fever, Chills Cardiovascular: Positive for: Chest Pain. Negative for: Palpitations, Light Headedness Respiratory: Negative for: Cough, Shortness of Breath Gastrointestinal: Positive for: Nausea, Vomiting, Abdominal Pain. Negative for: Diarrhea Neurological: Negative for: Weakness, Numbness, Change in Speech Physical Exam - Reviewed Nursing Documentation Reviewed: Yes Vital Signs Reviewed: Yes - Physical Exam Appears: Positive for: Well, Non-toxic, No Acute Distress Head Exam: Positive for: ATRAUMATIC, NORMAL INSPECTION, NORMOCEPHALIC Skin: Positive for: Normal Color, Warm, DRY Eye Exam: Positive for: Normal appearance ENT: Positive for: Normal ENT Inspection Neck: Positive for: Normal, Painless ROM Cardiovascular/Chest: Positive for: Regular Rate, Rhythm Respiratory: Positive for: Normal Breath Sounds. Negative for: Accessory Muscle Use, Respiratory Distress Gastrointestinal/Abdominal: Positive for: Normal Exam, Soft. Negative for: Tenderness Back: Positive for: Normal Inspection Extremity: Positive for: Normal ROM. Negative for: Pedal Edema, Deformity, Swelling Neurologic/Psych: Positive for: Alert, Oriented - Laboratory Results Result Diagrams: 07/12/18 20:11 07/12/18 20:11 - ECG O2 Sat by Pulse Oximetry: 97 Medical Decision Making Medical Decision Making: No vomiting in ER. PT than reports back pain but does not want tylenol. PT refusing CXR. Pt refusing abdomen/pelvis CT. Dr. Varner aware. Discussed OBS - Telemetry with Dr. Kauffman for chest pain. Disposition - Clinical Impression Clinical Impression: Chest pain - Patient ED Disposition Is Patient to be Admitted: Yes Counseled Patient/Family Regarding: Diagnosis - Disposition Disposition Time: 01:19 Condition: STABLE - Pt Status Changed To: Hospital Disposition Of: Observation - POA Present On Arrival: None
--- NOTE | 2018-07-13 09:40 | CARD ---
APPROVED REPORT Date of service: 07/12/2018 EKG Measurement Heart [id number] <Conclusion> Atrial fibrillation Left axis deviation Abnormal ECG
--- NOTE | 2018-07-13 10:19 | RAD ---
Date of service: 07/13/2018 HISTORY: chest pain, dizziness COMPARISON: 06/30/2018 FINDINGS: LUNGS: No active pulmonary disease. PLEURA: No significant pleural effusion identified, no pneumothorax apparent. CARDIOVASCULAR: No aortic atherosclerotic calcification present. Normal cardiac size. No congestive change. Permanent pacemaker noted OSSEOUS STRUCTURES: No significant abnormalities. VISUALIZED UPPER ABDOMEN: Normal. OTHER FINDINGS: None. IMPRESSION: No active disease.
--- NOTE | 2018-07-13 11:58 | CP.PCM.HP ---
History of Present Illness - History of Present Illness History of Present Illness: CC: Chest Pain History of Present Illness: An 82yo female with HTN, High Cholesterol, DM II, CAD and Mild Systolic CHF presents for evaluation of abdominal pain and vomiting x 3. Pt states that she began vomiting in the afternoon. Pt reports diffuse abdominal pain. No BM today however reports normal BM yesterday. Pt also reports chest pain, left sided since this morning. Pt denies SOB. Present on Admission - Present on Admission Any Indicators Present on Admission: Yes Review of Systems - Review of Systems Review of Systems: as per HPI Past Patient History - Infectious Disease Hx of Infectious Diseases: None - Past Medical History & Family History Past Medical History?: Yes Past Family History: Reviewed and not pertinent - Past Social History Smoking Status: Never Smoked Alcohol: None Drugs: Denies - CARDIAC Hx Cardiac Disorders: Yes - PULMONARY Hx Respiratory Disorders: Yes Hx Asthma: Yes Hx Chronic Obstructive Pulmonary Disease (COPD): Yes - NEUROLOGICAL Hx Neurological Disorder: Yes HX Cerebrovascular Accident: Yes Hx Dementia: Yes - HEENT Hx HEENT Problems: Yes Hx Blind: Yes (R eye) Hx Glaucoma: Yes - RENAL Hx Chronic Kidney Disease: No - ENDOCRINE/METABOLIC Hx Endocrine Disorders: Yes - HEMATOLOGICAL/ONCOLOGICAL Hx Blood Disorders: No Hx AIDS: No Hx Human Immunodeficiency Virus (HIV): No - INTEGUMENTARY Hx Dermatological Problems: No - MUSCULOSKELETAL/RHEUMATOLOGICAL Hx Musculoskeletal Disorders: Yes Hx Arthritis: Yes Hx Falls: Yes Hx Fractures: Yes (Left Hip displacement) Hx Osteoporosis: Yes - GASTROINTESTINAL Hx Crohn's Disease: Yes Hx Diverticulitis: Yes Hx Gastritis: Yes - GENITOURINARY/GYNECOLOGICAL Hx Genitourinary Disorders: Yes Hx Incontinence: Yes - PSYCHIATRIC Hx Psychophysiologic Disorder: Yes - SURGICAL HISTORY Hx Surgeries: Yes Hx Appendectomy: Yes Hx Cholecystectomy: Yes (documented in history but patient does not acknowledge) - ANESTHESIA Hx Anesthesia: Yes Hx Anesthesia Reactions: No Hx Malignant Hyperthermia: No Meds Allergies/Adverse Reactions: Allergies Allergy/AdvReac Type Severity Reaction Status Date / Time No Known Allergies Allergy Verified 06/30/18 16:36 Physical Exam - Constitutional Appears: Well, No Acute Distress, Chronically Ill - Head Exam Head Exam: ATRAUMATIC, NORMAL INSPECTION, NORMOCEPHALIC - Eye Exam Eye Exam: EOMI, Normal appearance, PERRL Pupil Exam: NORMAL ACCOMODATION, PERRL - ENT Exam ENT Exam: Mucous Membranes Moist, Normal Exam - Neck Exam Neck exam: Positive for: Normal Inspection - Respiratory Exam Respiratory Exam: Clear to Auscultation Bilateral, NORMAL BREATHING PATTERN - Cardiovascular Exam Cardiovascular Exam: REGULAR RHYTHM, +S1, +S2 - GI/Abdominal Exam GI & Abdominal Exam: Normal Bowel Sounds, Soft. absent: Tenderness - Rectal Exam Rectal Exam: NORMAL INSPECTION - Extremities Exam Extremities exam: Positive for: full ROM, normal capillary refill, normal i nspection - Back Exam Back exam: NORMAL INSPECTION - Neurological Exam Neurological exam: Alert, CN II-XII Intact, Normal Gait, Oriented x3, Reflexes Normal - Psychiatric Exam Psychiatric exam: Normal Affect, Normal Mood - Skin Skin Exam: Dry, Intact, Normal Color, Warm Results - Vital Signs Recent Vital Signs: Last Vital Signs Temp 98.1 F 07/13/18 07:48 Pulse 76 07/13/18 07:48 Resp 18 07/13/18 07:48 BP 143/86 07/13/18 07:48 Pulse Ox 98 07/13/18 07:48 - Labs Result Diagrams: 07/12/18 20:11 07/12/18 20:11 Labs: Laboratory Results - last 24 hr 07/12/18 07/12/18 07/12/18 20:11 20:11 20:11 WBC 5.5 RBC 5.04 Hgb 13.6 Hct 42.4 MCV 84.1 MCH 27.0 MCHC 32.1 L RDW 15.6 H Plt Count 191 MPV 9.0 Neut % (Auto) 67.6 Lymph % (Auto) 24.1 [place] % (Auto) 7.4 Eos % (Auto) 0.2 Baso % (Auto) 0.7 Neut # (Auto) 3.7 Lymph # (Auto) 1.3 [place] # (Auto) 0.4 Eos # (Auto) 0.0 Baso # (Auto) 0.0 PT 14.1 H INR 1.2 APTT 37.2 H Sodium 135 Potassium 4.0 Chloride 94 L Carbon Dioxide 32 H Anion Gap 13 BUN 20 H Creatinine 0.7 Est GFR ( Amer) > 60 Est GFR (Non-Af Amer) > 60 POC Glucose (mg/dL) Random Glucose 147 H Calcium 9.6 Phosphorus 3.1 Magnesium 2.0 Total Bilirubin 0.3 AST 51 H ALT 46 Alkaline Phosphatase 171 H Troponin I < 0.0120 NT-Pro-B Natriuret Pep 2090 H Total Protein 7.1 Albumin 4.1 Globulin 3.0 Albumin/Globulin Ratio 1.4 07/13/18 07/13/18 07/13/18 05:40 09:45 11:30 WBC RBC Hgb Hct MCV MCH MCHC RDW Plt Count MPV Neut % (Auto) Lymph % (Auto) [place] % (Auto) Eos % (Auto) Baso % (Auto) Neut # (Auto) Lymph # (Auto) [place] # (Auto) Eos # (Auto) Baso # (Auto) PT INR APTT Sodium Potassium Chloride Carbon Dioxide Anion Gap BUN Creatinine Est GFR ( Amer) Est GFR (Non-Af Amer) POC Glucose (mg/dL) 98 141 H Random Glucose Calcium Phosphorus Magnesium Total Bilirubin AST ALT Alkaline Phosphatase Troponin I 0.0160 NT-Pro-B Natriuret Pep Total Protein Albumin Globulin Albumin/Globulin Ratio - Imaging and Cardiology Chest x-ray Status: Report reviewed by me Additional comment: Date of service: 07/13/2018 HISTORY: chest pain, dizziness COMPARISON: 06/30/2018 FINDINGS: LUNGS: No active pulmonary disease. PLEURA: No significant pleural effusion identified, no pneumothorax apparent. CARDIOVASCULAR: No aortic atherosclerotic calcification present. Normal cardiac size. No congestive change. Permanent pacemaker noted OSSEOUS STRUCTURES: No significant abnormalities. VISUALIZED UPPER ABDOMEN: Normal. OTHER FINDINGS: None. IMPRESSION: No active disease. Assessment & Plan (1) A-fib Status: Acute (2) Back pain Status: Acute Priority: Low (3) Chest pain Status: Acute Priority: Low (4) Unable to ambulate Status: Acute - Assessment and Plan (Free Text) Plan: Serial Trop and EKG Desai control PT/OT Continue Home medication
[2018-07-13] MEDS ORDERED: Albuterol HFA 90 mcg/actuation (8 g) INH PRN (14:30)
[2018-07-13] MEDS: Digoxin 125 mcg (0.125 mg) Tab PO SCH (16:16)
[2018-07-13] MEDS: Sildenafil 20 MG TAB PO SCH (16:16)
[2018-07-13] MEDS: Amylase/Lipase/Protease 5,000 Units ECC PO SCH (16:17)
[2018-07-13] MEDS ORDERED: AMYLASE PO SCH (17:00)
[2018-07-13] MEDS ORDERED: PROTEASE PO SCH (17:00)
[2018-07-13] MEDS ORDERED: LIPASE PO SCH (17:00)
[2018-07-13] MEDS: Donepezil HCl 10 MG ODT PO SCH (17:17)
[2018-07-14] MEDS: Levothyroxine 100 MCG TAB PO SCH (06:26)
[2018-07-14] MEDS: Amylase/Lipase/Protease 5,000 Units ECC PO SCH ×2 (08:51→16:39)
[2018-07-14] MEDS: Digoxin 125 mcg (0.125 mg) Tab PO SCH (08:51)
[2018-07-14] MEDS: Sildenafil 20 MG TAB PO SCH ×3 (08:52→16:39)
[2018-07-14] MEDS: Pantoprazole 40 mg EC Tab PO SCH (08:53)
[2018-07-14] MEDS: Donepezil HCl 10 MG ODT PO SCH (08:54)
[2018-07-14] MEDS: Magnesium Oxide 400 mg Tab UD PO SCH (08:54)
[2018-07-14] MEDS: HCTZ/Losartan 12.5/50 Tab PO SCH (09:00)
[2018-07-15] MEDS: Levothyroxine 100 MCG TAB PO SCH (06:08)
[2018-07-15] MEDS: Donepezil HCl 10 MG ODT PO SCH (08:47)
[2018-07-15] MEDS: Amylase/Lipase/Protease 5,000 Units ECC PO SCH ×2 (08:47→17:32)
[2018-07-15] MEDS: Pantoprazole 40 mg EC Tab PO SCH (08:48)
[2018-07-15] MEDS: Magnesium Oxide 400 mg Tab UD PO SCH (08:48)
[2018-07-15] MEDS: Sildenafil 20 MG TAB PO SCH ×3 (08:49→17:33)
[2018-07-15] MEDS: Digoxin 125 mcg (0.125 mg) Tab PO SCH (08:50)
[2018-07-15] MEDS: HCTZ/Losartan 12.5/50 Tab PO SCH (08:50)
[2018-07-16] MEDS: Levothyroxine 100 MCG TAB PO SCH (06:18)
[2018-07-16 08:49] VITALS: RESP 18
[2018-07-16] MEDS: Sildenafil 20 MG TAB PO SCH ×2 (09:20→12:33)
[2018-07-16] MEDS: Donepezil HCl 10 MG ODT PO SCH (09:21)
--- NOTE | 2018-07-16 09:21 | CP.PCM.PN ---
Subjective - Date & Time of Evaluation Date of Evaluation: 07/14/18 Time of Evaluation: 08:15 Objective - Vital Signs/Intake and Output Vital Signs (last 24 hours): Temp Pulse Resp BP Pulse Ox 98.2 F 70 18 112/72 99 07/16/18 08:49 07/16/18 08:49 07/16/18 08:49 07/16/18 08:49 07/16/18 08:49 - Medications Medications: Current Medications Albuterol (Ventolin Hfa 90 Mcg/Actuation (8 G)) 2 puff INH Q6 PRN PRN Reason: sob Amylase (Pancrease 31361 U-5000 [id number] U) 2 unit PO BID [facility] Last Admin: 07/15/18 17:32 Dose: 2 unit Apixaban (Eliquis) 2.5 mg PO BID [facility]; Protocol Last Admin: 07/15/18 16:40 Dose: 2.5 mg Aspirin (Ecotrin) 81 mg PO DAILY [facility] [place] Last Admin: 07/15/18 08:49 Dose: 81 mg Atorvastatin Calcium (Lipitor) 10 mg PO DAILY [facility] Last Admin: 07/15/18 08:53 Dose: 10 mg Digoxin (Digoxin) 0.125 mg PO DAILY [facility] [place] Last Admin: 07/15/18 08:50 Dose: Not Given Docusate Sodium (Colace) 200 mg PO HS [facility] Last Admin: 07/15/18 22:03 Dose: 200 mg Donepezil HCl (Aricept Odt) 10 mg PO DAILY [facility] [place] Last Admin: 07/15/18 08:47 Dose: 10 mg Furosemide (Lasix) 40 mg PO BID [facility] [place] Last Admin: 07/15/18 16:42 Dose: 40 mg Gabapentin (Neurontin) 300 mg PO TID [facility] [place] Last Admin: 07/15/18 16:38 Dose: 300 mg HCTZ/Losartan Potassium (Hyzaar 12.5 Mg-50 Mg) 1 tab PO DAILY [facility] [place] Last Admin: 07/15/18 08:50 Dose: 1 tab Ibuprofen (Motrin Tab) 600 mg PO Q6 PRN PRN Reason: fever/pain Levothyroxine Sodium (Synthroid) 100 mcg PO DAILY@0630 [facility] [place] Last Admin: 07/16/18 06:18 Dose: 100 mcg Magnesium Oxide (Mag-Ox) 400 mg PO DAILY [facility] [place] Last Admin: 07/15/18 08:48 Dose: 400 mg Metoprolol Tartrate (Lopressor) 25 mg PO Q12 [facility] Last Admin: 07/15/18 22:03 Dose: Not Given Ondansetron HCl (Zofran Odt) 4 mg PO Q8 PRN PRN Reason: Nausea/Vomiting Pantoprazole Sodium (Protonix Ec Tab) 40 mg PO DAILY [facility] [place] Last Admin: 07/15/18 08:48 Dose: 40 mg Rivastigmine (Exelon 9.5 Mg/24 Hr Patch) 1 patch TD DAILY [facility] [place] Last Admin: 07/15/18 08:47 Dose: 1 patch Sildenafil Citrate (Revatio) 20 mg PO TID [facility] [place] Last Admin: 07/15/18 17:33 Dose: 20 mg Sitagliptin Phosphate (Januvia) 50 mg PO DAILY [facility] Last Admin: 07/15/18 08:53 Dose: Not Given Spironolactone (Aldactone) 25 mg PO DAILY [facility] [place] Last Admin: 07/15/18 08:49 Dose: 25 mg - Labs Labs: 07/12/18 20:11 07/12/18 20:11 PT 14.1 Seconds (9.8-13.1) H 07/12/18 20:11 INR 1.2 07/12/18 20:11 APTT 37.2 Seconds (25.6-37.1) H 07/12/18 20:11
[2018-07-16] MEDS: Magnesium Oxide 400 mg Tab UD PO SCH (09:22)
[2018-07-16] MEDS: Digoxin 125 mcg (0.125 mg) Tab PO SCH (09:22)
--- NOTE | 2018-07-16 09:22 | CP.PCM.PN ---
Subjective - Date & Time of Evaluation Date of Evaluation: 07/15/18 Time of Evaluation: 09:05 Objective - Vital Signs/Intake and Output Vital Signs (last 24 hours): Temp Pulse Resp BP Pulse Ox 98.2 F 70 18 112/72 99 07/16/18 08:49 07/16/18 08:49 07/16/18 08:49 07/16/18 08:49 07/16/18 08:49 - Medications Medications: Current Medications Albuterol (Ventolin Hfa 90 Mcg/Actuation (8 G)) 2 puff INH Q6 PRN PRN Reason: sob Amylase (Pancrease 70215 U-5000 U-[id number] U) 2 unit PO BID [facility] Last Admin: 07/15/18 17:32 Dose: 2 unit Apixaban (Eliquis) 2.5 mg PO BID [facility]; Protocol Last Admin: 07/15/18 16:40 Dose: 2.5 mg Aspirin (Ecotrin) 81 mg PO DAILY [facility] Last Admin: 07/15/18 08:49 Dose: 81 mg Atorvastatin Calcium (Lipitor) 10 mg PO DAILY [facility] Last Admin: 07/15/18 08:53 Dose: 10 mg Digoxin (Digoxin) 0.125 mg PO DAILY [facility] Last Admin: 07/15/18 08:50 Dose: Not Given Docusate Sodium (Colace) 200 mg PO HS [facility] Last Admin: 07/15/18 22:03 Dose: 200 mg Donepezil HCl (Aricept Odt) 10 mg PO DAILY [facility] Last Admin: 07/15/18 08:47 Dose: 10 mg Furosemide (Lasix) 40 mg PO BID [facility] Last Admin: 07/15/18 16:42 Dose: 40 mg Gabapentin (Neurontin) 300 mg PO TID [facility] Last Admin: 07/15/18 16:38 Dose: 300 mg HCTZ/Losartan Potassium (Hyzaar 12.5 Mg-50 Mg) 1 tab PO DAILY [facility] Last Admin: 07/15/18 08:50 Dose: 1 tab Ibuprofen (Motrin Tab) 600 mg PO Q6 PRN PRN Reason: fever/pain Levothyroxine Sodium (Synthroid) 100 mcg PO DAILY@0630 [facility] Last Admin: 07/16/18 06:18 Dose: 100 mcg Magnesium Oxide (Mag-Ox) 400 mg PO DAILY [facility] Last Admin: 07/15/18 08:48 Dose: 400 mg Metoprolol Tartrate (Lopressor) 25 mg PO Q12 [facility] Last Admin: 07/15/18 22:03 Dose: Not Given Ondansetron HCl (Zofran Odt) 4 mg PO Q8 PRN PRN Reason: Nausea/Vomiting Pantoprazole Sodium (Protonix Ec Tab) 40 mg PO DAILY [facility] Last Admin: 07/15/18 08:48 Dose: 40 mg Rivastigmine (Exelon 9.5 Mg/24 Hr Patch) 1 patch TD DAILY [facility] Last Admin: 07/15/18 08:47 Dose: 1 patch Sildenafil Citrate (Revatio) 20 mg PO TID [facility] Last Admin: 07/15/18 17:33 Dose: 20 mg Sitagliptin Phosphate (Januvia) 50 mg PO DAILY [facility] Last Admin: 07/15/18 08:53 Dose: Not Given Spironolactone (Aldactone) 25 mg PO DAILY [facility] Last Admin: 07/15/18 08:49 Dose: 25 mg - Labs Labs: 07/12/18 20:11 07/12/18 20:11 PT 14.1 Seconds (9.8-13.1) H 07/12/18 20:11 INR 1.2 07/12/18 20:11 APTT 37.2 Seconds (25.6-37.1) H 07/12/18 20:11
[2018-07-16 09:23] VITALS: PULSE 72
[2018-07-16] MEDS: HCTZ/Losartan 12.5/50 Tab PO SCH (09:23)
[2018-07-16] MEDS: Pantoprazole 40 mg EC Tab PO SCH (09:28)
[2018-07-16] MEDS: Amylase/Lipase/Protease 5,000 Units ECC PO SCH (09:37)
[2018-07-16] MEDS ORDERED: Amylase/Lipase/Protease 5,000 Units ECC PO SCH (09:45)
[2018-07-16 12:48] VITALS: BP 97/58; PULSE 63; TEMP 98.1
[2018-07-16 13:50] VITALS: O2SAT 98
--- NOTE | 2018-07-16 15:29 | CP.PCM.CON ---
History of Present Illness - History of Present Illness History of Present Illness: Consultation for evaluation of low BP with hx of diastolic CHF and afib HPI: 82 year old female with hx of non-ischemic diatolic CHF 2' to paroxymal atrial fibrillation , HTN readmitted for sx of symptomatic hypotension and chest dis comfort. She had recent prolonged hospitalization for CHF exacerbation 2' to dietary non-compliance. Review of Systems - Review of Systems Systems not reviewed;Unavailable: Acuity of Condition - Constitutional Constitutional: As Per HPI - EENT Eyes: As Per HPI Ears: As Per HPI Nose/Mouth/Throat: As Per HPI - Breasts Breasts: As Per HPI - Cardiovascular Cardiovascular: As Per HPI - Respiratory Respiratory: As Per HPI - Gastrointestinal Gastrointestinal: As Per HPI - Genitourinary Genitourinary: As Per HPI - Reproductive: Female Reproductive:Female: As Per HPI - Menstruation Menstruation: As Per HPI - Musculoskeletal Musculoskeletal: As Per HPI - Integumentary Integumentary: As Per HPI - Neurological Neurological: As Per HPI - Psychiatric Psychiatric: As Per HPI - Endocrine Endocrine: As Per HPI - Hematologic/Lymphatic Hematologic: As Per HPI Past Patient History - Infectious Disease Hx of Infectious Diseases: None - Past Medical History & Family History Past Medical History?: Yes - Past Social History Smoking Status: Never Smoked - CARDIAC Hx Cardiac Disorders: Yes ([place], CAD, AF) Hx Congestive Heart Failure: Yes Hx Hypercholesterolemia: Yes Hx Hypertension: Yes - PULMONARY Hx Chronic Obstructive Pulmonary Disease (COPD): Yes (asthma) - NEUROLOGICAL Hx Neurological Disorder: Yes HX Cerebrovascular Accident: Yes Hx Dementia: Yes - HEENT Hx HEENT Problems: Yes Hx Blind: Yes (R eye) Hx Glaucoma: Yes - RENAL Hx Chronic Kidney Disease: No - ENDOCRINE/METABOLIC Hx Diabetes Mellitus Type 2: Yes Hx Hypothyroidism: Yes - HEMATOLOGICAL/ONCOLOGICAL Hx Blood Disorders: No Hx AIDS: No Hx Human Immunodeficiency Virus (HIV): No - INTEGUMENTARY Hx Dermatological Problems: No - MUSCULOSKELETAL/RHEUMATOLOGICAL Hx Arthritis: Yes - GASTROINTESTINAL Hx Crohn's Disease: Yes Hx Diverticulitis: Yes Hx Gastritis: Yes - GENITOURINARY/GYNECOLOGICAL Hx Genitourinary Disorders: Yes Hx Incontinence: Yes - PSYCHIATRIC Hx Psychophysiologic Disorder: Yes - SURGICAL HISTORY Hx Surgeries: Yes Hx Appendectomy: Yes Hx Cholecystectomy: Yes (documented in history but patient does not acknowledge) - ANESTHESIA Hx Anesthesia: Yes Hx Anesthesia Reactions: No Hx Malignant Hyperthermia: No Meds Allergies/Adverse Reactions: Allergies Allergy/AdvReac Type Severity Reaction Status Date / Time No Known Allergies Allergy Verified 06/30/18 16:36 - Medications Medications: Current Medications Albuterol (Ventolin Hfa 90 Mcg/Actuation (8 G)) 2 puff INH Q6 PRN PRN Reason: sob Amylase (Pancrease [id number] U-5000 U-[id number] U) 5,000 unit PO BID [facility] Last Admin: 07/16/18 09:47 Dose: 5,000 unit Apixaban (Eliquis) 2.5 mg PO BID [facility]; Protocol Last Admin: 07/16/18 09:24 Dose: 2.5 mg Aspirin (Ecotrin) 81 mg PO DAILY [facility] Last Admin: 07/16/18 09:23 Dose: 81 mg Atorvastatin Calcium (Lipitor) 10 mg PO DAILY [facility] Last Admin: 07/16/18 09:26 Dose: 10 mg Digoxin (Digoxin) 0.125 mg PO DAILY [facility] Last Admin: 07/16/18 09:22 Dose: 0.125 mg Docusate Sodium (Colace) 200 mg PO HS [facility] Last Admin: 07/15/18 22:03 Dose: 200 mg Donepezil HCl (Aricept Odt) 10 mg PO DAILY [facility] Last Admin: 07/16/18 09:21 Dose: 10 mg Furosemide (Lasix) 40 mg PO BID [facility] Last Admin: 07/16/18 09:26 Dose: 40 mg Gabapentin (Neurontin) 300 mg PO TID [facility] Last Admin: 07/16/18 12:32 Dose: 300 mg HCTZ/Losartan Potassium (Hyzaar 12.5 Mg-50 Mg) 1 tab PO DAILY [facility] Last Admin: 07/16/18 09:23 Dose: Not Given Ibuprofen (Motrin Tab) 600 mg PO Q6 PRN PRN Reason: fever/pain Levothyroxine Sodium (Synthroid) 100 mcg PO DAILY@0630 [facility] Last Admin: 07/16/18 06:18 Dose: 100 mcg Magnesium Oxide (Mag-Ox) 400 mg PO DAILY [facility] Last Admin: 07/16/18 09:22 Dose: 400 mg Metoprolol Tartrate (Lopressor) 25 mg PO Q12 [facility] Last Admin: 07/16/18 09:27 Dose: 25 mg Ondansetron HCl (Zofran Odt) 4 mg PO Q8 PRN PRN Reason: Nausea/Vomiting Pantoprazole Sodium (Protonix Ec Tab) 40 mg PO DAILY [facility] Last Admin: 07/16/18 09:28 Dose: 40 mg Rivastigmine (Exelon 9.5 Mg/24 Hr Patch) 1 patch TD DAILY [facility] Last Admin: 07/16/18 09:24 Dose: 1 patch Sildenafil Citrate (Revatio) 20 mg PO TID [facility] Last Admin: 07/16/18 12:33 Dose: 20 mg Sitagliptin Phosphate (Januvia) 50 mg PO DAILY [facility] Last Admin: 07/16/18 09:23 Dose: Not Given Spironolactone (Aldactone) 25 mg PO DAILY [facility] Last Admin: 07/16/18 09:21 Dose: 25 mg Physical Exam - Constitutional Appears: Well - Head Exam Head Exam: ATRAUMATIC, NORMAL INSPECTION, NORMOCEPHALIC - Eye Exam Eye Exam: EOMI, Normal appearance, PERRL Pupil Exam: NORMAL ACCOMODATION, PERRL - ENT Exam ENT Exam: Mucous Membranes Moist, Normal Exam - Neck Exam Neck exam: Positive for: Normal Inspection - Respiratory Exam Respiratory Exam: Clear to Auscultation Bilateral, NORMAL BREATHING PATTERN - Cardiovascular Exam Cardiovascular Exam: REGULAR RHYTHM - GI/Abdominal Exam GI & Abdominal Exam: Normal Bowel Sounds, Soft. absent: Tenderness - Extremities Exam Extremities exam: Positive for: normal inspection - Back Exam Back exam: NORMAL INSPECTION - Neurological Exam Neurological exam: Alert, CN II-XII Intact, Normal Gait, Oriented x3, Reflexes Normal - Psychiatric Exam Psychiatric exam: Normal Affect, Normal Mood - Skin Skin Exam: Dry, Intact, Normal Color, Warm Results - Vital Signs Recent Vital Signs: Last Vital Signs Temp 98.1 F 07/16/18 12:48 Pulse 63 07/16/18 13:01 Resp 18 07/16/18 12:48 BP 97/58 L 07/16/18 12:48 Pulse Ox 98 07/16/18 13:01 - Labs Result Diagrams: 07/12/18 20:11 07/12/18 20:11 Labs: Laboratory Results - last 24 hr 07/15/18 07/15/18 07/15/18 10:49 17:00 22:27 POC Glucose (mg/dL) 164 H 92 106 07/16/18 07/16/18 07/16/18 05:47 11:26 11:27 POC Glucose (mg/dL) 109 < 20 L* 136 H Assessment & Plan (1) Hypotension Assessment and Plan: chg lopressor to 25mg po xl once daily cut aldactone to 12.5mg po daily lasix once a day 40mg po daily hold arb/hctz for now cont eliquis stable to go to rehab outpt f/u next week Status: Acute (2) CHF (congestive heart failure), NYHA class III Status: Acute (3) Pedal edema Status: Acute (4) A-fib Status: Chronic Priority: Low (5) Pulmonary hypertension Status: Chronic Priority: Low
--- NOTE | 2018-07-17 00:56 | CP.PCM.DIS ---
Provider - Provider Date of Admission: 07/15/18 14:01 Attending physician: Manjit Angulo MD Time Spent in preparation of Discharge (in minutes): 25 Diagnosis - Discharge Diagnosis (1) Arthritis Status: Chronic Priority: Medium (2) Unable to ambulate Status: Acute Priority: High (3) Back pain Status: Acute Priority: Low (4) Chest pain Status: Acute Priority: Low (5) Generalized muscle weakness Status: Acute Priority: High Hospital Course - Lab Results Lab Results: Most Recent Lab Values WBC 5.5 K/uL (4.8-10.8) 07/12/18 20:11 RBC 5.04 Mil/uL (3.80-5.20) 07/12/18 20:11 Hgb 13.6 g/dL (12.0-16.0) 07/12/18 20:11 Hct 42.4 % (34.0-47.0) 07/12/18 20:11 MCV 84.1 fl (81.0-99.0) 07/12/18 20:11 MCH 27.0 pg (27.0-31.0) 07/12/18 20:11 MCHC 32.1 g/dL (33.0-37.0) L 07/12/18 20:11 RDW 15.6 % (11.5-14.5) H 07/12/18 20:11 Plt Count 191 K/uL (130-400) 07/12/18 20:11 MPV 9.0 fl (7.2-11.7) 07/12/18 20:11 Neut % (Auto) 67.6 % (50.0-75.0) 07/12/18 20:11 Lymph % (Auto) 24.1 % (20.0-40.0) 07/12/18 20:11 [place] % (Auto) 7.4 % (0.0-10.0) 07/12/18 20:11 Eos % (Auto) 0.2 % (0.0-4.0) 07/12/18 20:11 Baso % (Auto) 0.7 % (0.0-2.0) 07/12/18 20:11 Neut # (Auto) 3.7 K/uL (1.8-7.0) 07/12/18 20:11 Lymph # (Auto) 1.3 K/uL (1.0-4.3) 07/12/18 20:11 [place] # (Auto) 0.4 K/uL (0.0-0.8) 07/12/18 20:11 Eos # (Auto) 0.0 K/uL (0.0-0.7) 07/12/18 20:11 Baso # (Auto) 0.0 K/uL (0.0-0.2) 07/12/18 20:11 PT 14.1 Seconds (9.8-13.1) H 07/12/18 20:11 INR 1.2 07/12/18 20:11 APTT 37.2 Seconds (25.6-37.1) H 07/12/18 20:11 Sodium 135 mmol/l (132-148) 07/12/18 20:11 Potassium 4.0 MMOL/L (3.6-5.0) 07/12/18 20:11 Chloride 94 mmol/L (98-107) L 07/12/18 20:11 Carbon Dioxide 32 mmol/L (22-30) H 07/12/18 20:11 Anion Gap 13 (10-20) 07/12/18 20:11 BUN 20 mg/dl (7-17) H 07/12/18 20:11 Creatinine 0.7 mg/dl (0.7-1.2) 07/12/18 20:11 Est GFR ( Amer) > 60 07/12/18 20:11 Est GFR (Non-Af Amer) > 60 07/12/18 20:11 POC Glucose (mg/dL) 136 mg/dL (65-110) H 07/16/18 11:27 Random Glucose 147 mg/dL (65-105) H 07/12/18 20:11 Calcium 9.6 mg/dL (8.4-10.2) 07/12/18 20:11 Phosphorus 3.1 mg/dl (2.5-4.5) 07/12/18 20:11 Magnesium 2.0 MG/DL (1.6-2.3) 07/12/18 20:11 Total Bilirubin 0.3 mg/dl (0.2-1.3) 07/12/18 20:11 AST 51 U/L (14-36) H 07/12/18 20:11 ALT 46 U/L (9-52) 07/12/18 20:11 Alkaline Phosphatase 171 U/L (38-126) H 07/12/18 20:11 Troponin I 0.0160 ng/mL (0.00-0.120) 07/13/18 15:18 NT-Pro-B Natriuret Pep 2090 pg/ml (0-900) H 07/12/18 20:11 Total Protein 7.1 G/DL (6.3-8.2) 07/12/18 20:11 Albumin 4.1 g/dL (3.5-5.0) 07/12/18 20:11 Globulin 3.0 gm/dL (2.2-3.9) 07/12/18 20:11 Albumin/Globulin Ratio 1.4 (1.0-2.1) 07/12/18 20:11 Discharge Exam - Head Exam Head Exam: ATRAUMATIC, NORMAL INSPECTION, NORMOCEPHALIC Discharge Plan - Follow Up Plan Condition: STABLE Disposition: REHAB FACILITY/REHAB UNIT Instructions: Chest Pain (DC) Additional Instructions: discharge pt to [facility] Referrals: Pancho Street MD [Staff Provider] - Isadora Banuelos MD [Medical Doctor] -
--- NOTE | 2018-07-19 21:44 | PQF ---
PROVIDER RESPONSE TEXT: Atypical Chest Pain, ACS ruled out REVIEWER QUERY TEXT: Symptom Underlying Cause Please document the underlying diagnosis causing the patient?s documented symptom of chest pain or u nable to be further specified. Was the etiology of chest pain determined. The patient's Clinical Indicators include: Chest pain Query created by: Katia Ha on 07/17/2018 9:39 AM Electronically signed by: Manjit Angulo MD 07/19/2018 9:41 PM
== END 2018-07-16 16:05 | DRG 313 ==
LOC: H.ER 19:55 → H.ERHOLD 07-13 01:19 → H.TEL 07-13 02:49 → OBSVTOIN 07-15 14:01 → H.TEL 07-15 20:53
PROVIDERS: ADMIT Internal Medicine; ATTEND Internal Medicine
DX: R07.89 Other chest pain (principal); I50.41 Acute combined systolic (congestive) and diastolic (congestive) heart failure; K50.90 Crohn's disease, unspecified, without complications; E03.9 Hypothyroidism, unspecified; E11.9 Type 2 diabetes mellitus without complications; E78.00 Pure hypercholesterolemia, unspecified; E78.5 Hyperlipidemia, unspecified; F03.90 Unspecified dementia, unspecified severity, without behavioral disturbance, psychotic disturbance, mood disturbance, and anxiety; F31.9 Bipolar disorder, unspecified; H40.9 Unspecified glaucoma; H54.61 Unqualified visual loss, right eye, normal vision left eye; I11.0 Hypertensive heart disease with heart failure; I25.10 Atherosclerotic heart disease of native coronary artery without angina pectoris; I27.20 Pulmonary hypertension, unspecified; I48.0 Paroxysmal atrial fibrillation; J44.9 Chronic obstructive pulmonary disease, unspecified; M19.90 Unspecified osteoarthritis, unspecified site; M81.0 Age-related osteoporosis without current pathological fracture; Z79.01 Long term (current) use of anticoagulants; Z79.82 Long term (current) use of aspirin; Z86.73 Personal history of transient ischemic attack (TIA), and cerebral infarction without residual deficits; Z90.49 Acquired absence of other specified parts of digestive tract; Z91.11 Patient's noncompliance with dietary regimen; F32.9 Major depressive disorder, single episode, unspecified; F41.9 Anxiety disorder, unspecified; K29.70 Gastritis, unspecified, without bleeding; K44.9 Diaphragmatic hernia without obstruction or gangrene; R32 Unspecified urinary incontinence; Z79.84 Long term (current) use of oral hypoglycemic drugs; M54.9 Dorsalgia, unspecified; M62.81 Muscle weakness (generalized); I95.9 Hypotension, unspecified

== ENCOUNTER 2018-07-22 09:17 | Inpatient (IN) | payer MEDICARE, MEDICAID ==
[2018-07-22 09:17] VITALS: PULSE 72
--- NOTE | 2018-07-22 10:07 | RAD ---
Date of service: 07/22/2018 HISTORY: dyspnea COMPARISON: 07/13/2018 FINDINGS: LUNGS: Mild pulmonary congestion. PLEURA: No significant pleural effusion identified, no pneumothorax apparent. CARDIOVASCULAR: No aortic atherosclerotic calcification present. Normal cardiac size. OSSEOUS STRUCTURES: No significant abnormalities. VISUALIZED UPPER ABDOMEN: Normal. OTHER FINDINGS: None. IMPRESSION: Mild pulmonary congestion.
[2018-07-22 10:29] LABS: BASO % 0.6 % (0.0-2.0); EOS % 0.5 % (0.0-4.0); HEMOGLOBIN 13.9 g/dL (12.0-16.0); MEAN CELL VOLUME 84.9 fl (81.0-99.0); MEAN CORPUSCULAR HGB CONC 31.8 g/dL (33.0-37.0); MEAN PLATELET VOLUME 8.7 fl (7.2-11.7); MONO # 0.6 K/uL (0.0-0.8); MONO % 10.7 % (0.0-10.0); NEUT # 2.7 K/uL (1.8-7.0); NEUT % 50.2 % (50.0-75.0); NRBC % 0.3 % (0.0-0.0); RBC 5.13 Mil/uL (3.80-5.20); RED CELL DISTRIBUTION WIDTH 16.3 % (11.5-14.5); WHITE BLOOD COUNT 5.4 K/uL (4.8-10.8)
[2018-07-22 10:30] LABS: INR 1.2; PROTHROMBIN TIME 13.5 Seconds (9.8-13.1)
[2018-07-22 10:33] LABS: PARTIAL THROMBOPLASTIN TIME 28.1 Seconds (25.6-37.1)
[2018-07-22 10:49] LABS: B-TYPE NATRIURETIC PEPTIDE 3030 pg/ml (0-900)
[2018-07-22 10:52] LABS: ALB/GLOB RATIO 1.2 (1.0-2.1); ALBUMIN 3.6 g/dL (3.5-5.0); ALT/SGPT 58 U/L (9-52); AST/SGOT 64 U/L (14-36); BLOOD UREA NITROGEN 21 mg/dl (7-17); CALCIUM 9.6 mg/dL (8.4-10.2); GFR NON-AFRICAN AMERICAN > 60
--- NOTE | 2018-07-22 11:12 | ED PDOC ---
Syncope/Near Syncope/Dizziness Time Seen by Provider: 07/22/18 09:29 Chief Complaint (Nursing): Weakness/Neurological Deficit Chief Complaint (Provider): Weakness/Neurological Deficit History Per: Patient History/Exam Limitations: no limitations Onset/Duration Of Symptoms: Hrs Current Symptoms Are (Timing): Still Present Additional Complaint(s): 82 y/o female with a PMHx of CAD, Cardia Arrhythmia, CHF, DM, HTN, hypercholesterolemia, CVA, Osteoporosis and Peripheral Edema brought in by EMS from [facility] for evaluation of an "atypical heart rate". Patient reported of feeling diaphoretic and drowsy, requesting lasix. As per EMS, the patient had bradycardia. EMS additionally report the patient's pacemaker was not working. Patient is complaining of a headache that is mild, not worst in her life. Mild upper abdominal pain since this morning. Otherwise, patient denies chest pain, shortness of breath and leg pain. No back pain. PMD: Nam Sloan Past Medical History Reviewed: Historical Data, Nursing Documentation, Vital Signs Vital Signs: Last Vital Signs Temp 98 F 07/22/18 09:22 Pulse 47 L 07/22/18 10:32 Resp 18 07/22/18 10:32 BP 131/72 07/22/18 10:32 Pulse Ox 96 07/22/18 10:32 - Medical History PMH: Anxiety, Arthritis, Asthma, Atrial Fibrillation, Bipolar Disorder, CAD, Cardia Arrhythmia (a fib), CHF, COPD, Crohn's Disease, CVA, Dementia, Depression, Diabetes, Diverticulitis, Fractures (Left Hip displacement), Gastritis, Hiatal Hernia, HTN, Hypercholesterolemia, Hyperlipidemia, Hypothyroidism, Osteoporosis, Peripheral Edema Denies: HIV, Chronic Kidney Disease - Surgical History Surgical History: Appendectomy, Cholecystectomy (documented in history but patient does not acknowledge), Pacemaker, - Family History Family History: States: Unknown Family Hx - Living Arrangements Living Arrangements: [facility]/Assist Lv - Social History Alcohol: None Drugs: Denies - Immunization History Hx Tetanus Toxoid Vaccination: Yes Hx Influenza Vaccination: Yes Hx Pneumococcal Vaccination: Yes - Home Medications Home Medications: Ambulatory Orders Medication Instructions Recorded Donepezil HCl [Aricept Odt] 1 tab PO DAILY 08/04/17 Albuterol HFA [Ventolin HFA 90 2 in INH Q6 PRN #1 inhaler 08/22/17 mcg/actuation (8 g)] Apixaban [Eliquis] 2.5 mg PO BID #60 tab 08/22/17 Aspirin [Ecotrin] 81 mg PO DAILY #30 tabec 08/22/17 Atorvastatin [Lipitor] 10 mg PO DAILY #30 tab 08/22/17 Digoxin 125 mcg PO DAILY 08/22/17 Docusate [Colace] 200 mg PO HS #60 cap 08/22/17 Gabapentin 300 mg PO TID #90 capsule 08/22/17 Levothyroxine [Synthroid] 100 mcg PO DAILY #30 tab 08/22/17 Losartan/Hydrochlorothiazide 1 tab PO DAILY #30 tablet 08/22/17 [Losartan-Hctz 50-12.5 mg Tab] Magnesium Oxide [Magox 400] 400 mg PO DAILY #30 tablet 08/22/17 Meloxicam [Mobic] 7.5 mg PO DAILY #30 tab 08/22/17 Metoprolol Tartrate [Lopressor] 25 mg PO Q12 #60 tab 08/22/17 Rivastigmine 9.5 mg/24 hr [Exelon 1 patch TD DAILY #30 patch 08/22/17 9.5 mg/24 hr Patch] SITagliptin [Januvia] 50 mg PO DAILY #30 tab 08/22/17 Sildenafil [Revatio] 20 mg PO TID #90 tab 08/22/17 Tolterodine [Detrol LA] 4 mg PO DAILY #30 cer 08/22/17 Furosemide [Lasix] 40 mg PO BID #60 tab 05/08/18 Potassium Chloride [Klor-Con 10] 10 meq PO DAILY #7 tablet.er 05/08/18 Ondansetron [Zofran Odt] 4 mg PO Q8 PRN #10 odt 05/10/18 Pantoprazole [Protonix EC Tab] 40 mg PO DAILY #30 ect 07/06/18 Spironolactone [Aldactone] 25 mg PO DAILY #30 tab 07/06/18 - Allergies Allergies/Adverse Reactions: Allergies Allergy/AdvReac Type Severity Reaction Status Date / Time No Known Allergies Allergy Verified 06/30/18 16:36 Review of Systems ROS Statement: Except As Marked, All Systems Reviewed And Found Negative Physical Exam - Reviewed Nursing Documentation Reviewed: Yes Vital Signs Reviewed: Yes - Physical Exam Appears: Positive for: No Acute Distress Head Exam: Positive for: ATRAUMATIC, NORMOCEPHALIC Skin: Positive for: Normal Color, Warm, Dry Eye Exam: Positive for: EOMI (of the bilateral eyes), PERRL (in the left eye), Other (Glaucoma noted in the right eye) Neck: Positive for: Normal, Painless ROM, Supple Cardiovascular/Chest: Positive for: Bradycardia, Other (Pacemaker noted ). Negative for: Murmur Respiratory: Positive for: Decreased Breath Sounds (bilaterally with mild coarse sounds) Gastrointestinal/Abdominal: Positive for: Soft, Tenderness (mild epigastric tenderness) Back: Positive for: Normal Inspection. Negative for: L CVA Tenderness, R CVA Tenderness Extremity: Positive for: Swelling (Mild swelling to the lower extremities), Other (4/5 strength in the upper extremities. 3/5 strength in the lower extremities. ). Negative for: Deformity Neurologic/Psych: Positive for: Alert, graduate student instructor II-XII, Oriented. Negative for: Motor/Sensory Deficits, Aphasia, Facial Droop - Laboratory Results Result Diagrams: 07/22/18 10:15 07/22/18 10:15 Interpretation Of Abn Labs: 3030 bnp - ECG ECG: Positive for: Interpreted By Me, Viewed By Me Interpretation Of Abn EKG: afib, rate 50 O2 Sat by Pulse Oximetry: 96 (RA) Pulse Ox Interpretation: Normal - Radiology X-Ray: Read By Radiologist X-Ray Interpretation: Other (vasc congestion) - Progress ED Course And Treament: 1149: Spoke with Dr. Sotelo who will admit for Dr. Sloan. Aware of shekhar episode. Has pacemaker, but not kicking in. Unable to indentify type of pacemaker. Dr. Street saw pt. last. Will consult accordingly. No chest pain. Medical Decision Making Medical Decision Making: Time: 937 Plan: -- VBG -- EKG -- B-type Natriuretic -- CMP -- Digoxin -- Troponin I -- CBC with Differentials -- PTT -- Prothrombin Time -- CXR Portable -- Pepcid 20 mg IVP -- IV Insertion Time: 1112 Plan: -- Aspirin 325 mg PO -- Lasix 40 mg IV Scribe Attestation: Documented by Jatin Alvarado, acting as a scribe for Jose Cardoso MD. Provider Scribe Attestation: All medical record entries made by the Scribe were at my direction and personally dictated by me. I have reviewed the chart and agree that the record accurately reflects my personal performance of the history, physical exam, medical decision making, and the department course for this patient. I have also personally directed, reviewed, and agree with the discharge instructions and disposition. Disposition - Clinical Impression Clinical Impression: Bradycardia, Afib, CHF (congestive heart failure) - Patient ED Disposition Is Patient to be Admitted: Yes Counseled Patient/Family Regarding: Studies Performed, Diagnosis - Disposition Disposition Time: 12:04 Condition: FAIR - Pt Status Changed To: Hospital Disposition Of: Inpatient - Admit Certification Admit to Inpatient:: After my assessment, the patient will require hospitalization for at least two midnights. This is because of the severity of symptoms shown, intensity of services needed, and/or the medical risk in this patient being treated as an outpatient. - POA Present On Arrival: None
[2018-07-22] MEDS ORDERED: Aspirin 325 mg EC Tablets PO ONE (11:23)
[2018-07-22 16:07] VITALS: BMI 32.8
[2018-07-22] MEDS ORDERED: Albuterol HFA 90 mcg/actuation (8 g) INH PRN (17:43)
--- NOTE | 2018-07-22 22:13 | CARD ---
APPROVED REPORT Date of service: 07/22/2018 EKG Measurement Heart [id number] <Conclusion> Atrial fibrillation with slow ventricular response with ventricular escape complexes Left axis deviation Low voltage QRS Abnormal ECG
[2018-07-23] MEDS: Levothyroxine 100 MCG TAB PO SCH (05:30)
[2018-07-23] MEDS: Potassium Chloride 10 mEq ER Tab PO SCH (08:28)
[2018-07-23] MEDS: Magnesium Oxide 400 mg Tab UD PO SCH (08:28)
[2018-07-23] MEDS: Sildenafil 20 MG TAB PO SCH ×3 (08:28→17:41)
[2018-07-23] MEDS: Pantoprazole 40 mg EC Tab PO SCH (08:29)
--- NOTE | 2018-07-23 10:57 | CP.PCM.CON ---
History of Present Illness - History of Present Illness History of Present Illness: Consultation for evaluation of symptomatic bradycardia HPI: Review of Systems - Review of Systems Systems not reviewed;Unavailable: Acuity of Condition - Constitutional Constitutional: As Per HPI - EENT Eyes: As Per HPI Ears: As Per HPI Nose/Mouth/Throat: As Per HPI - Breasts Breasts: As Per HPI - Cardiovascular Cardiovascular: As Per HPI - Respiratory Respiratory: As Per HPI - Gastrointestinal Gastrointestinal: As Per HPI - Genitourinary Genitourinary: As Per HPI - Reproductive: Female Reproductive:Female: As Per HPI - Menstruation Menstruation: As Per HPI - Musculoskeletal Musculoskeletal: As Per HPI - Integumentary Integumentary: As Per HPI - Neurological Neurological: As Per HPI - Psychiatric Psychiatric: As Per HPI - Endocrine Endocrine: As Per HPI - Hematologic/Lymphatic Hematologic: As Per HPI Past Patient History - Infectious Disease Hx of Infectious Diseases: None - Past Medical History & Family History Past Medical History?: Yes - Past Social History Smoking Status: Never Smoked - CARDIAC Hx Cardiac Disorders: Yes Hx Atrial Fibrillation: Yes Hx Hypercholesterolemia: Yes Hx Hypertension: Yes Hx Peripheral Edema: Yes - PULMONARY Hx Respiratory Disorders: Yes Hx Asthma: Yes - NEUROLOGICAL Hx Neurological Disorder: Yes Hx Dementia: Yes - HEENT Hx HEENT Problems: Yes Hx Blind: Yes (R eye) Hx Glaucoma: Yes - RENAL Hx Chronic Kidney Disease: No - ENDOCRINE/METABOLIC Hx Endocrine Disorders: Yes Hx Diabetes Mellitus Type 2: Yes Hx Hypothyroidism: Yes - HEMATOLOGICAL/ONCOLOGICAL Hx Blood Disorders: No Hx AIDS: No Hx Human Immunodeficiency Virus (HIV): No - INTEGUMENTARY Hx Dermatological Problems: No - MUSCULOSKELETAL/RHEUMATOLOGICAL Hx Musculoskeletal Disorders: Yes Hx Arthritis: Yes Hx Falls: Yes Hx Fractures: Yes (Left Hip displacement) Hx Osteoporosis: Yes - GASTROINTESTINAL Hx Gastrointestinal Disorders: Yes Hx Diverticulitis: Yes Hx Gastritis: Yes - GENITOURINARY/GYNECOLOGICAL Hx Genitourinary Disorders: Yes Hx Incontinence: Yes - PSYCHIATRIC Hx Psychophysiologic Disorder: Yes Hx Anxiety: Yes Hx Substance Use: No - SURGICAL HISTORY Hx Surgeries: Yes Hx Appendectomy: Yes Hx Cholecystectomy: Yes (documented in history but patient does not acknowledge) Other/Comment: Pacemaker Sep 2017 - ANESTHESIA Hx Anesthesia: Yes Hx Anesthesia Reactions: No Hx Malignant Hyperthermia: No Meds Allergies/Adverse Reactions: Allergies Allergy/AdvReac Type Severity Reaction Status Date / Time No Known Allergies Allergy Verified 06/30/18 16:36 - Medications Medications: Current Medications Albuterol (Ventolin Hfa 90 Mcg/Actuation (8 G)) 1 puff INH Q6 PRN PRN Reason: sob Apixaban (Eliquis) 2.5 mg PO BID [facility]; Protocol Last Admin: 07/23/18 08:29 Dose: 2.5 mg Aspirin (Ecotrin) 81 mg PO DAILY [facility] Last Admin: 07/23/18 08:28 Dose: 81 mg Atorvastatin Calcium (Lipitor) 10 mg PO DAILY [facility] Last Admin: 07/23/18 08:30 Dose: 10 mg Docusate Sodium (Colace) 200 mg PO HS [facility] Last Admin: 07/22/18 21:20 Dose: 200 mg Furosemide (Lasix) 20 mg IVP DAILY [facility] Last Admin: 07/23/18 08:30 Dose: 20 mg Gabapentin (Neurontin) 100 mg PO TID [facility] Last Admin: 07/23/18 08:28 Dose: 100 mg Levothyroxine Sodium (Synthroid) 100 mcg PO DAILY@0630 [facility] Last Admin: 07/23/18 05:30 Dose: 100 mcg Magnesium Oxide (Mag-Ox) 400 mg PO DAILY [facility] Last Admin: 07/23/18 08:28 Dose: 400 mg Pantoprazole Sodium (Protonix Ec Tab) 40 mg PO DAILY [facility] Last Admin: 07/23/18 08:29 Dose: 40 mg Potassium Chloride (Klor-Con 10) 10 meq PO DAILY [facility] Last Admin: 07/23/18 08:28 Dose: 10 meq Rivastigmine (Exelon 9.5 Mg/24 Hr Patch) 1 patch TD DAILY [facility] Last Admin: 07/23/18 08:30 Dose: 1 patch Sildenafil Citrate (Revatio) 20 mg PO TID [facility] Last Admin: 07/23/18 08:28 Dose: 20 mg Sitagliptin Phosphate (Januvia) 50 mg PO DAILY [facility] Last Admin: 07/23/18 08:28 Dose: 50 mg Spironolactone (Aldactone) 25 mg PO DAILY [facility] Last Admin: 07/23/18 08:27 Dose: 25 mg Tolterodine Tartrate (Detrol) 2 mg PO BID [facility] Last Admin: 07/23/18 08:28 Dose: 2 mg Physical Exam - Constitutional Appears: Well - Head Exam Head Exam: ATRAUMATIC, NORMAL INSPECTION, NORMOCEPHALIC - Eye Exam Eye Exam: EOMI, Normal appearance, PERRL Pupil Exam: NORMAL ACCOMODATION, PERRL - ENT Exam ENT Exam: Mucous Membranes Moist, Normal Exam - Neck Exam Neck exam: Positive for: Normal Inspection - Respiratory Exam Respiratory Exam: Clear to Auscultation Bilateral, NORMAL BREATHING PATTERN - Cardiovascular Exam Cardiovascular Exam: Irregular Rhythm, Systolic Murmur - GI/Abdominal Exam GI & Abdominal Exam: Normal Bowel Sounds, Soft. absent: Tenderness - Rectal Exam Rectal Exam: NORMAL INSPECTION - Extremities Exam Extremities exam: Positive for: normal inspection - Back Exam Back exam: NORMAL INSPECTION - Neurological Exam Neurological exam: Alert, CN II-XII Intact, Normal Gait, Oriented x3, Reflexes Normal - Psychiatric Exam Psychiatric exam: Normal Affect, Normal Mood - Skin Skin Exam: Dry, Intact, Normal Color, Warm Results - Vital Signs Recent Vital Signs: Last Vital Signs Temp 97.7 F 07/23/18 08:30 Pulse 48 L 07/23/18 08:30 Resp 20 07/23/18 08:30 BP 116/74 07/23/18 08:30 Pulse Ox 100 07/23/18 08:30 - Labs Result Diagrams: 07/22/18 10:15 07/22/18 10:15 Labs: Laboratory Results - last 24 hr 07/22/18 07/23/18 10:15 05:16 POC Glucose (mg/dL) 103 Digoxin 0.7 L Assessment & Plan (1) Bradycardia Assessment and Plan: will check digoxin levels PM interrogation Status: Acute (2) A-fib Status: Acute (3) CHF (congestive heart failure) Status: Acute (4) Peptic ulcer disease Status: Acute (5) Pulmonary HTN Status: Acute Priority: Medium (6) Hypertension Status: Chronic Priority: Low (7) Pulmonary hypertension Status: Chronic Priority: Low (8) Acute exacerbation of CHF (congestive heart failure) Status: Resolved Priority: Low
[2018-07-23] MEDS ORDERED: Artificial Tears Opht Soln OU PRN (16:38)
--- NOTE | 2018-07-24 02:30 | HP ---
HISTORY OF PRESENT ILLNESS: This is an 82-year-old [place]ian female with history of multiple medical problems including congestive heart failure, atrial fibrillation, status post pacemaker placement, presented to emergency room with symptoms of shortness of breath and generalized edema. The patient was given Lasix and evaluated in the emergency room and admitted for further management. The patient denied to have any cough or fever or expectoration. 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 PAST MEDICAL HISTORY: Hypertension, hypercholesterolemia, paroxysmal atrial fibrillation, status post pacemaker placement, hypothyroidism. SOCIAL HISTORY: No history of smoking, EtOH or substance abuse. MEDICATIONS: Reviewed as per MAR and ordered. FAMILY HISTORY: Noncontributory. PHYSICAL EXAMINATION: GENERAL: The patient is not in any cardiopulmonary distress and she was given a few IV Lasix. VITAL SIGNS: Blood pressure 92/61, temperature 98.8, respiratory rate 17 and pulse 64. HEENT: The patient has artificial eye on the right side and left side pupil reactive and normal appearing mucosa of the conjunctiva. NECK: Supple. No JVD. No carotid bruit. No lymph node. No thyromegaly. CHEST AND LUNGS: Bilateral symmetrical expansion. Good air exchange. No rales, no rhonchi. CARDIOVASCULAR: PMI not localized. S1, S2. No additional sounds. ABDOMEN: Normoactive bowel sounds. No tenderness. No organomegaly. No masses. EXTREMITIES: No cyanosis, no clubbing, no edema. CENTRAL NERVOUS SYSTEMS: Alert, awake, oriented x3. No neurological deficit could be appreciated. LABORATORY DATA: ProBNP is above 3000 on admission. ASSESSMENT: 1. [id number] congestive heart failure, both systolic and diastolic. 2. Paroxysmal atrial fibrillation. 3. Type 2 diabetes mellitus. PLAN: Follow up recommendations of Cardiology. Monitor electrolytes. Continue Lasix and Accu-Cheks. Ameya Sotelo MD
[2018-07-24 05:46] LABS: HEMOGLOBIN 12.7 g/dL (12.0-16.0); MEAN CORPUSCULAR HEMOGLOBIN 27.3 pg (27.0-31.0); MEAN CORPUSCULAR HGB CONC 31.7 g/dL (33.0-37.0); RBC 4.64 Mil/uL (3.80-5.20); RED CELL DISTRIBUTION WIDTH 15.9 % (11.5-14.5); WHITE BLOOD COUNT 5.2 K/uL (4.8-10.8)
[2018-07-24 05:50] LABS: BLOOD UREA NITROGEN 25 mg/dl (7-17); CALCIUM 9.3 mg/dL (8.4-10.2); GFR NON-AFRICAN AMERICAN 53
[2018-07-24 05:58] LABS: B-TYPE NATRIURETIC PEPTIDE 2050 pg/ml (0-900)
[2018-07-24] MEDS: Levothyroxine 100 MCG TAB PO SCH (06:49)
[2018-07-24] MEDS: Potassium Chloride 10 mEq ER Tab PO SCH (08:30)
[2018-07-24] MEDS: Sildenafil 20 MG TAB PO SCH ×3 (08:30→17:37)
[2018-07-24] MEDS: Magnesium Oxide 400 mg Tab UD PO SCH (08:30)
[2018-07-24] MEDS: Pantoprazole 40 mg EC Tab PO SCH (08:31)
--- NOTE | 2018-07-24 13:34 | CP.PCM.PCO ---
Assessment & Plan - Assessment and Plan (Free Text) Assessment: pt. doing well this morning, Tele with periods of bradycardia, 14- 60, in Afib pt. for PPM interrogation but does not recall company Contacted in [facility] who inserted the ppm, waiting for f/u
[2018-07-24] MEDS: Sucralfate 1 gm/10 ml Oral Susp UD PO SCH ×2 (15:50→17:38)
--- NOTE | 2018-07-25 02:49 | PN ---
DATE: 07/24/2018 SUBJECTIVE: The patient is seen today, 07/24/2018. She is not in any cardiopulmonary distress. The patient feels generalized weakness and has leg edema. PHYSICAL EXAMINATION: VITAL SIGNS: Blood pressure is 105/69, temperature 98.3, respiratory rate 17, and pulse 65. HEENT: Blindness of the right eye with right eye prosthesis. Normal-appearing mucosa of the conjunctivae. NECK: Supple. No JVD. No carotid bruit. No lymph node. No thyromegaly. CHEST AND LUNGS: Bilateral symmetrical expansion. Good air exchange. No rales, no rhonchi. CARDIOVASCULAR SYSTEM: PMI not localized. S1, S2. No additional sounds. ABDOMEN: Normoactive bowel sounds. No tenderness. No organomegaly. No masses. EXTREMITIES: No cyanosis, no clubbing. Bilateral +1 edema. CENTRAL NERVOUS SYSTEM: Alert, awake, oriented x3. No neurological deficits could be appreciated. ASSESSMENT: 1. Congestive heart failure, both systolic and diastolic, acute on chronic. 2. Hypertension. 3. Type 2 diabetes mellitus. PLAN: Continue current medications and follow with Cardiology, start physical therapy, monitor electrolytes. Ameya Sotelo MD
[2018-07-25] MEDS: Levothyroxine 100 MCG TAB PO SCH (05:53)
[2018-07-25] MEDS: Magnesium Oxide 400 mg Tab UD PO SCH (08:54)
[2018-07-25] MEDS: Sucralfate 1 gm/10 ml Oral Susp UD PO SCH ×2 (08:54→17:34)
[2018-07-25] MEDS: Sildenafil 20 MG TAB PO SCH ×3 (08:55→17:35)
[2018-07-25] MEDS: Potassium Chloride 10 mEq ER Tab PO SCH (08:55)
[2018-07-25] MEDS: Pantoprazole 40 mg EC Tab PO SCH (08:56)
--- NOTE | 2018-07-25 09:32 | CP.PCM.PCO ---
Assessment/Plan - Assessment/Plan Assessment (Free Text): Patient seen and examined Bradycardic 40s on hospital monitor, asymptomatic. Denies chest pain, sob, nausea vomiting Called Dr Zuleta office, spoke to physician office secretary Kenney, and patient had a [employer] PM inserted in [facility]. Made arrangements with Dr Street to have PM interrogated today. Will cont to monitor. - Problems Patient Problems: Problem List (Active/Current) Problem Status Onset Code A-fib Acute I48.91 Bradycardia Acute R00.1 CHF (congestive heart failure) Acute I50.9
--- NOTE | 2018-07-25 11:05 | CP.PCM.PN ---
Subjective - Date & Time of Evaluation Date of Evaluation: 07/25/18 Time of Evaluation: 11:04 - Subjective Subjective: feeling fine HR in am noted to be in high 30's Objective - Vital Signs/Intake and Output Vital Signs (last 24 hours): Temp Pulse Resp BP Pulse Ox 98.4 F 69 20 119/65 98 07/25/18 08:12 07/25/18 08:12 07/25/18 08:12 07/25/18 08:56 07/25/18 08:12 - Medications Medications: Current Medications Albuterol (Ventolin Hfa 90 Mcg/Actuation (8 G)) 1 puff INH Q6 PRN PRN Reason: sob Apixaban (Eliquis) 2.5 mg PO BID [facility]; Protocol Last Admin: 07/25/18 08:54 Dose: 2.5 mg Artificial Tears (Refresh Opth Soln) 1 ml OU Q4 PRN PRN Reason: Dry eyes Aspirin (Ecotrin) 81 mg PO DAILY [facility] Last Admin: 07/25/18 08:56 Dose: 81 mg Atorvastatin Calcium (Lipitor) 10 mg PO DAILY [facility] Last Admin: 07/25/18 08:55 Dose: 10 mg Docusate Sodium (Colace) 200 mg PO HS [facility] Last Admin: 07/24/18 21:06 Dose: 200 mg Furosemide (Lasix) 20 mg IVP DAILY [facility] Last Admin: 07/25/18 08:56 Dose: 20 mg Gabapentin (Neurontin) 100 mg PO TID [facility] Last Admin: 07/25/18 08:55 Dose: 100 mg Levothyroxine Sodium (Synthroid) 100 mcg PO DAILY@0630 [facility] Last Admin: 07/25/18 05:53 Dose: 100 mcg Magnesium Oxide (Mag-Ox) 400 mg PO DAILY [facility] Last Admin: 07/25/18 08:54 Dose: 400 mg Pantoprazole Sodium (Protonix Ec Tab) 40 mg PO DAILY [facility] Last Admin: 07/25/18 08:56 Dose: 40 mg Potassium Chloride (Klor-Con 10) 10 meq PO DAILY [facility] Last Admin: 07/25/18 08:55 Dose: 10 meq Rivastigmine (Exelon 9.5 Mg/24 Hr Patch) 1 patch TD DAILY [facility] Last Admin: 07/23/18 08:30 Dose: 1 patch Sildenafil Citrate (Revatio) 20 mg PO TID [facility] Last Admin: 12/05/18 08:55 Dose: 20 mg Sitagliptin Phosphate (Januvia) 50 mg PO DAILY [facility] Last Admin: 07/25/18 09:53 Dose: Not Given Spironolactone (Aldactone) 25 mg PO DAILY [facility] Last Admin: 07/25/18 09:54 Dose: 25 mg Sucralfate (Carafate Oral Susp) 1 gm PO BIDAC [facility] Last Admin: 07/25/18 08:54 Dose: 1 gm Tolterodine Tartrate (Detrol) 2 mg PO BID [facility] Last Admin: 07/25/18 08:54 Dose: 2 mg - Labs Labs: 07/24/18 04:25 07/24/18 04:25 PT 13.5 Seconds (9.8-13.1) H 07/22/18 10:15 INR 1.2 07/22/18 10:15 APTT 28.1 Seconds (25.6-37.1) 07/22/18 10:15 - Constitutional Appears: Well - Head Exam Head Exam: ATRAUMATIC, NORMAL INSPECTION, NORMOCEPHALIC - Eye Exam Eye Exam: EOMI, Normal appearance, PERRL Pupil Exam: NORMAL ACCOMODATION, PERRL - ENT Exam ENT Exam: Mucous Membranes Moist, Normal Exam - Neck Exam Neck Exam: Full ROM, Normal Inspection. absent: Lymphadenopathy - Respiratory Exam Respiratory Exam: Clear to Ausculation Bilateral, NORMAL BREATHING PATTERN - Cardiovascular Exam Cardiovascular Exam: Irregular Rhythm, +S1, +S2, Murmur - GI/Abdominal Exam GI & Abdominal Exam: Soft, Normal Bowel Sounds. absent: Tenderness - Extremities Exam Extremities Exam: Full ROM, Normal Capillary Refill, Normal Inspection. absent: Joint Swelling, Pedal Edema - Back Exam Back Exam: NORMAL INSPECTION - Neurological Exam Neurological Exam: Alert, Awake, CN II-XII Intact, Normal Gait, Oriented x3 - Psychiatric Exam Psychiatric exam: Normal Affect, Normal Mood - Skin Skin Exam: Dry, Intact, Normal Color, Warm Assessment and Plan (1) Bradycardia Assessment & Plan: backup rate set to 55 cont bb dc digoxin & exelon Status: Acute (2) A-fib Status: Acute (3) CHF (congestive heart failure) Assessment & Plan: improving on IV lasix cont home meds Status: Acute (4) Peptic ulcer disease Status: Acute (5) Pulmonary HTN Status: Acute (6) Hypertension Status: Chronic (7) Pulmonary hypertension Status: Chronic (8) Acute exacerbation of CHF (congestive heart failure) Status: Resolved
[2018-07-25] MEDS: Lubricant Eye Drops UD OU PRN ×2 (12:45→21:30)
--- NOTE | 2018-07-25 22:21 | PQF ---
PROVIDER RESPONSE TEXT: Stable COPD REVIEWER QUERY TEXT: COPD Specificity COPD - Chronic Obstructive Pulmonary Disease is documented in the Medical Record. Please specify if t he condition is: --Stable -- Exacerbation - acute -- Other, please specify ER: Respiratoy: Positive for: Decreased Breath Sounds (bilaterally with mild coarse sounds) Clin Imp: Bradycardia, Afib, CHF H and P: presented to emergency room with symptoms of shortness of breath and generalized edema. Assess::1. [id number] congestive heart failure, both systolic and diastolic. 2. Paroxysmal atrial fibrillation. 3. Type 2 diabetes mellitus. --Ventolin Q6 PRN, Nasal Cannula 2 Liters The patient's Clinical Indicators include: -- Query created by: Isadora Kumar on 07/24/2018 8:51 AM Electronically signed by: Ameya Sotelo MD 07/25/2018 10:18 PM
[2018-07-25] MEDS ORDERED: Alum-Mag Hydrox-Simethicone Susp (30 mL) PO ONE (23:28)
[2018-07-26 00:49] VITALS: RESP 18
--- NOTE | 2018-07-26 02:42 | PN ---
DATE: 07/25/2018 SUBJECTIVE: The patient is seen today, 07/25/2018. She has less shortness of breath and decreased edema. PHYSICAL EXAMINATION: VITAL SIGNS: Blood pressure is 108/70, temperature 98, respiratory rate 20, and pulse 64. HEENT: Implanted prosthetic eye on the right side. Normal-appearing mucosa of the conjunctivae, oropharynx, and nasal membrane mucosa. NECK: Supple. No JVD. No carotid bruit. No lymph node. No thyromegaly. CHEST AND LUNGS: Bilateral symmetrical expansion. Good air exchange. No rales, no rhonchi. CARDIOVASCULAR SYSTEM: PMI not localized. S1, S2. No additional sounds. ABDOMEN: Normoactive bowel sounds. No tenderness. No organomegaly. No masses. EXTREMITIES: No cyanosis, no clubbing, no edema. CENTRAL NERVOUS SYSTEM: Alert, awake, oriented x3. No neurological deficit could be appreciated. ASSESSMENT: 1. [id number] congestive heart failure, both systolic and diastolic. 2. Status post pacemaker placement. 3. Hypertension. 4. Type 2 diabetes mellitus. PLAN: Continue current medications and follow Cardiology regarding interrogation of the pacemaker, physical therapy, and plan to discharge back to subacute rehabilitation. Ameya Sotelo MD
[2018-07-26] MEDS: Levothyroxine 100 MCG TAB PO SCH (06:23)
[2018-07-26] MEDS: Sucralfate 1 gm/10 ml Oral Susp UD PO SCH (07:45)
[2018-07-26] MEDS: Sildenafil 20 MG TAB PO SCH (09:01)
[2018-07-26] MEDS: Magnesium Oxide 400 mg Tab UD PO SCH (09:02)
[2018-07-26] MEDS: Potassium Chloride 10 mEq ER Tab PO SCH (09:02)
[2018-07-26] MEDS: Pantoprazole 40 mg EC Tab PO SCH (09:02)
[2018-07-26 12:17] VITALS: BP 98/65; PULSE 78; TEMP 98.7; O2SAT 96
--- NOTE | 2018-07-26 12:26 | CP.PCM.PN ---
Subjective - Date & Time of Evaluation Date of Evaluation: 07/26/18 Time of Evaluation: 12:25 - Subjective Subjective: stable Objective - Vital Signs/Intake and Output Vital Signs (last 24 hours): Temp Pulse Resp BP Pulse Ox 98.7 F 78 18 98/65 L 96 07/26/18 12:16 07/26/18 12:16 07/26/18 12:16 07/26/18 12:16 07/26/18 12:16 - Medications Medications: Current Medications Albuterol (Ventolin Hfa 90 Mcg/Actuation (8 G)) 1 puff INH Q6 PRN PRN Reason: sob Apixaban (Eliquis) 2.5 mg PO BID [facility]; Protocol Last Admin: 07/26/18 09:02 Dose: 2.5 mg Artificial Tears (Refresh Opth Soln) 1 ml OU Q4 PRN PRN Reason: Dry eyes Last Admin: 07/25/18 21:30 Dose: 1 ml Aspirin (Ecotrin) 81 mg PO DAILY [facility] Last Admin: 07/26/18 09:01 Dose: 81 mg Atorvastatin Calcium (Lipitor) 10 mg PO DAILY [facility] Last Admin: 07/26/18 09:01 Dose: 10 mg Docusate Sodium (Colace) 200 mg PO HS [facility] Last Admin: 07/25/18 21:29 Dose: 200 mg Furosemide (Lasix) 40 mg IVP DAILY [facility] Last Admin: 07/26/18 09:02 Dose: Not Given Gabapentin (Neurontin) 100 mg PO TID [facility] Last Admin: 07/26/18 09:02 Dose: 100 mg Levothyroxine Sodium (Synthroid) 100 mcg PO DAILY@0630 [facility] Last Admin: 07/26/18 06:23 Dose: 100 mcg Magnesium Oxide (Mag-Ox) 400 mg PO DAILY [facility] Last Admin: 07/26/18 09:02 Dose: 400 mg Pantoprazole Sodium (Protonix Ec Tab) 40 mg PO DAILY [facility] Last Admin: 07/26/18 09:02 Dose: 40 mg Potassium Chloride (Klor-Con 10) 10 meq PO DAILY [facility] Last Admin: 07/26/18 09:02 Dose: 10 meq Sildenafil Citrate (Revatio) 20 mg PO TID [facility] Last Admin: 07/26/18 09:01 Dose: 20 mg Sitagliptin Phosphate (Januvia) 50 mg PO DAILY [facility] Last Admin: 07/26/18 09:02 Dose: 50 mg Spironolactone (Aldactone) 25 mg PO DAILY [facility] Last Admin: 07/26/18 09:02 Dose: Not Given Sucralfate (Carafate Oral Susp) 1 gm PO BIDAC [facility] Last Admin: 07/26/18 07:45 Dose: 1 gm Tolterodine Tartrate (Detrol) 2 mg PO BID [facility] Last Admin: 07/26/18 09:02 Dose: 2 mg - Labs Labs: 07/24/18 04:25 07/24/18 04:25 PT 13.5 Seconds (9.8-13.1) H 07/22/18 10:15 INR 1.2 07/22/18 10:15 APTT 28.1 Seconds (25.6-37.1) 07/22/18 10:15 - Constitutional Appears: Well - Head Exam Head Exam: ATRAUMATIC, NORMAL INSPECTION, NORMOCEPHALIC - Eye Exam Eye Exam: EOMI, Normal appearance, PERRL Pupil Exam: NORMAL ACCOMODATION, PERRL - ENT Exam ENT Exam: Mucous Membranes Moist, Normal Exam - Neck Exam Neck Exam: Full ROM, Normal Inspection. absent: Lymphadenopathy - Respiratory Exam Respiratory Exam: Clear to Ausculation Bilateral, NORMAL BREATHING PATTERN - Cardiovascular Exam Cardiovascular Exam: Irregular Rhythm, +S1, +S2, Murmur - GI/Abdominal Exam GI & Abdominal Exam: Soft, Normal Bowel Sounds. absent: Tenderness - Extremities Exam Extremities Exam: Full ROM, Normal Capillary Refill, Normal Inspection. absent: Joint Swelling, Pedal Edema - Back Exam Back Exam: NORMAL INSPECTION - Neurological Exam Neurological Exam: Alert, Awake, CN II-XII Intact, Normal Gait, Oriented x3 - Psychiatric Exam Psychiatric exam: Normal Affect, Normal Mood - Skin Skin Exam: Dry, Intact, Normal Color, Warm Assessment and Plan (1) Bradycardia Assessment & Plan: HR stable Status: Acute (2) A-fib Assessment & Plan: cont Bb and eliquis Status: Acute (3) CHF (congestive heart failure) Assessment & Plan: cont aldactone dc lasix start bumex 1mg po daily cont bb cont sildenafil Status: Acute (4) Peptic ulcer disease Status: Acute (5) Pulmonary HTN Status: Acute (6) Hypertension Status: Chronic (7) Pulmonary hypertension Status: Chronic (8) Acute exacerbation of CHF (congestive heart failure) Status: Resolved
--- NOTE | 2018-07-27 04:28 | DS ---
REASON FOR ADMISSION: This is an 82-year-old [place] female with history of multiple medical problems, who was admitted for exacerbation of acute congestive heart failure. COURSE OF HOSPITALIZATION: The patient was admitted to telemetry floor, and she was started on IV diuretics. Due to bradycardia, the patient had the digoxin stopped and she had interrogation of the pacemaker that did not show any significant abnormality. The patient was discharged back to subacute rehabilitation to continue current medication, and the patient was switched to bumetanide as diuretic by Cardiology. FINAL DIAGNOSES: 1. Exacerbation of congestive heart failure. 2. Status post pacemaker placement. 3. Paroxysmal atrial fibrillation. 4. Hypertension. 5. Type 2 diabetes mellitus. 6. Blindness of right eye, status post prosthetic eye implant. 7. Hypothyroidism. [facility] MD Deepak
== END 2018-07-26 13:03 | DRG 293 ==
LOC: H.ER 09:17 → H.ERHOLD 12:01 → H.TEL 15:04
PROVIDERS: ADMIT Internal Medicine; ATTEND Internal Medicine
DX: I11.0 Hypertensive heart disease with heart failure (principal); R00.1 Bradycardia, unspecified; I50.43 Acute on chronic combined systolic (congestive) and diastolic (congestive) heart failure; E11.9 Type 2 diabetes mellitus without complications; I48.0 Paroxysmal atrial fibrillation; J44.9 Chronic obstructive pulmonary disease, unspecified; E78.00 Pure hypercholesterolemia, unspecified; H40.9 Unspecified glaucoma; E03.9 Hypothyroidism, unspecified; I25.10 Atherosclerotic heart disease of native coronary artery without angina pectoris; E78.5 Hyperlipidemia, unspecified; M81.0 Age-related osteoporosis without current pathological fracture; F03.90 Unspecified dementia, unspecified severity, without behavioral disturbance, psychotic disturbance, mood disturbance, and anxiety; Z95.0 Presence of cardiac pacemaker; Z97.0 Presence of artificial eye; Z79.01 Long term (current) use of anticoagulants; Z79.82 Long term (current) use of aspirin; Z79.890 Hormone replacement therapy; I27.20 Pulmonary hypertension, unspecified; K27.9 Peptic ulcer, site unspecified, unspecified as acute or chronic, without hemorrhage or perforation; F31.9 Bipolar disorder, unspecified; Z86.73 Personal history of transient ischemic attack (TIA), and cerebral infarction without residual deficits; K29.70 Gastritis, unspecified, without bleeding; F41.9 Anxiety disorder, unspecified; Z79.84 Long term (current) use of oral hypoglycemic drugs; M19.90 Unspecified osteoarthritis, unspecified site